=== PATIENT | male | born 1960 | race Caucasian/White ===

== ENCOUNTER 2023-02-07 18:28 | Emergency (ER) | payer MEDICARE, SELFPAY ==
[2023-02-07 18:39] VITALS: BP 182/101; PULSE 98; RESP 18; TEMP 36.8; O2SAT 98; BMI 25.4
[2023-02-07 18:43] VITALS: BP 158/97; PULSE 78; RESP 18; TEMP 36.7; O2SAT 99
--- NOTE | 2023-02-07 18:46 | PC.NURSE ---
PT STATES SUPRAPUBIC CATHETER STOPPED DRAINING TODAY. PT STATES HE HAS HAD THE CATHETER FOR 3 YEARS AND HAS THIS ISSUE FROM TIME TO TIME. PT STATES CATHETER GETS CHANGED EVERY 4 WEEKS AND HIS CURRENT CATHETER HAS BEEN IN FOR 3 WEEKS.
--- NOTE | 2023-02-07 19:26 | ED.MALEGU1 ---
HPI - Male Genitourinary General Chief complaint: Recheck/Abnormal Lab/Rx Stated complaint: CATH COMPLICATION-NO OUTPUT Time Seen by Provider: 02/07/23 19:24 Source: patient Mode of arrival: walk-in Limitations: no limitations History of Present Illness HPI Narrative: patient has suprapubic catheter in place. States it was not functioning. He presented to have the catheter replaced. States he has had this done several times in the past. no fever, nausea or pain. States urine was now flowing out of the catheter as normal Related Data Allergies Allergy/AdvReac Type Severity Reaction Status Date / Time No Known Drug Allergies Allergy Verified 02/07/23 18:39 Review of Systems ROS Status of ROS 10 or more systems reviewed and unremarkable except as noted in history and below Exam Constitutional Vital Signs, click to edit/add: Last Vital Signs Temp 98.1 F 02/07/23 18:43 Pulse 78 02/07/23 18:43 Resp 18 02/07/23 18:43 BP 158/97 H 02/07/23 18:43 Pulse Ox 99 02/07/23 18:43 O2 Del Method Room Air 02/07/23 18:39 Common normals: no apparent distress, average body habitus, oriented x3, no limitations and healthy appearing HENNY Common normals: normocephalic and head/scalp atraumatic Eye Common normals: PERRL, EOMs intact bilaterally and conjunctivae normal Respiratory Common normals: normal respiratory effort, no retractions, no use of accessory muscles and clear to auscultation bilaterally Cardio Common normals: no JVD, regular rate, regular rhythm, S1 normal heart sound and S2 normal heart sound GI Other: suprapubic catheter site is cleaned. abdomen is nontender Extremity Common normals: normal to inspection and full ROM Neuro Common normals: oriented x3, CN's II-XII intact bilaterally, moves all extremities, no focal motor deficits and no sensory deficits noted Psych Appearance: grossly normal Course Vital Signs Vital signs: Vital Signs Temperature 98.2 F 02/07/23 18:39 Pulse Rate 98 H 02/07/23 18:39 Respiratory Rate 18 02/07/23 18:39 Blood Pressure 182/101 H 02/07/23 18:39 Pulse Oximetry 98 02/07/23 18:39 Oxygen Delivery Method Room Air 02/07/23 18:39 Temperature 98.1 F 02/07/23 18:43 Pulse Rate 78 02/07/23 18:43 Respiratory Rate 18 02/07/23 18:43 Blood Pressure 158/97 H 02/07/23 18:43 Pulse Oximetry 99 02/07/23 18:43 Oxygen Delivery Method Room Air 02/07/23 18:39 MDM - Male Genitourinary MDM Narrative Medical decision making narrative: presents requesting to have his catheter changed. Asymptomatic. Exam normal. Catheter changed by nursing without incident and patient discharged home Discharge Plan Discharge Chief Complaint: Recheck/Abnormal Lab/Rx Clinical Impression: Acute urinary retention Patient Disposition: Home, Self-Care Instructions: How to Care for Your Suprapubic Catheter (DC) Stand Alone Forms: Portal Instructions Referrals: Physician,Non-Staff, MD [Primary Care Provider] - 1 week
--- NOTE | 2023-02-07 19:40 | PC.NURSE ---
URINARY CATHERTER PLACED, STERILE. PATIENT DENIES ANY PAIN OR DISCOMFORT. 350ML CLEAR YELLOW URINE FLOWING FREELY INTO LEG BAG AND DISCHARGED. TIP OF PREVIOUS URINARY CATHETER OBSTRUCTED, CAME OUT INTACT AND DISCARDED. PATIENT DENIES NEEDS AT THIS TIME. PHYSICIAN AWARE.
== END 2023-02-07 19:43 | disposition home or self-care (01) ==
PROVIDERS: Emergency Provider Internal Medicine; Family Provider Family Medicine
DX: R33.9 Retention of urine, unspecified (principal); Z96.0 Presence of urogenital implants
CPT/HCPCS: 99284

== ENCOUNTER 2023-10-15 12:50 | Emergency (ER) | payer MEDICARE, SELFPAY ==
[2023-10-15 12:55] VITALS: BP 139/90; PULSE 86; TEMP 36.6; O2SAT 97; BMI 23.6
--- NOTE | 2023-10-15 13:16 | ED.EAR1 ---
HPI - Ear Problem General Chief complaint: Ear Stated complaint: RT EAR PAIN W LITTLE DISCHARGE Time Seen by Provider: 10/15/23 13:16 Source: patient Mode of arrival: walk-in Limitations: no limitations History of Present Illness HPI Narrative: Patient is here with decreased hearing in his right ear and some discomfort. No history of trauma injury or bleeding. He thinks it might have wax in it. He has no other complaints today Related Data Home Medications ?Medication ?Instructions ?Recorded ?Confirmed baclofen 10 mg tablet 10 mg PO BEDTIME 10/15/23 10/15/23 omeprazole 40 mg capsule,delayed 40 mg PO BID 10/15/23 10/15/23 release oxybutynin chloride 5 mg tablet 5 mg PO Q8H 10/15/23 10/15/23 potassium citrate 15 mEq (1,620 15 meq PO BID 10/15/23 10/15/23 mg) tablet,extended release Allergies Allergy/AdvReac Type Severity Reaction Status Date / Time No Known Drug Allergies Allergy Verified 02/07/23 18:39 Exam Narrative Exam Narrative: Awake alert pleasant vital signs are stable. HEENT examination shows no evidence of oral pathology or disease. However both TMs could not be visualized because of dense wet cerumen in both ears. At this stage we did apply some peroxide and let him rest for a while. And then repeated episodes with water irrigation failed to expel the cerumen. There was no bleeding. He tolerated it well but has a said despite numerous attempts we could not get any wax out. He will need to be referred to ENT. Constitutional Vital Signs, click to edit/add: Last Vital Signs Temp 97.9 F 10/15/23 12:55 Pulse 86 10/15/23 12:55 Resp 16 10/15/23 12:55 BP 139/90 10/15/23 12:55 Pulse Ox 97 10/15/23 12:55 O2 Del Method Room Air 10/15/23 12:55 Course Vital Signs Vital signs: Vital Signs Temperature 97.9 F 10/15/23 12:55 Pulse Rate 86 10/15/23 12:55 Respiratory Rate 16 10/15/23 12:55 Blood Pressure 139/90 10/15/23 12:55 Pulse Oximetry 97 10/15/23 12:55 Oxygen Delivery Method Room Air 10/15/23 12:55 Temperature 97.9 F 10/15/23 12:55 Pulse Rate 86 10/15/23 12:55 Respiratory Rate 16 10/15/23 12:55 Blood Pressure 139/90 10/15/23 12:55 Pulse Oximetry 97 10/15/23 12:55 Oxygen Delivery Method Room Air 10/15/23 12:55 Discharge Plan Discharge Stand Alone Forms: Portal Instructions Chief Complaint: Ear Clinical Impression: Bilateral impacted cerumen Patient Disposition: Home, Self-Care Time of Disposition Decision: 14:59 Prescriptions / Home Meds: No Action omeprazole 40 mg capsule,delayed release(DR/EC) 40 mg PO BID baclofen 10 mg tablet 10 mg PO BEDTIME oxybutynin chloride 5 mg tablet 5 mg PO Q8H potassium citrate 15 mEq tablet extended release 15 meq PO BID Print Language: Kinyarwanda Additional Instructions: Check your insurance plan and call ENT specialist on Tuesday. Tell them you were in the ER and they should be able to see you this week Referrals: Physician,Non-Staff, MD [Primary Care Provider] - 1 week
== END 2023-10-15 15:11 | disposition home or self-care (01) ==
PROVIDERS: Emergency Provider Emergency Medicine Emergency Medical Services; Family Provider Family Medicine
DX: H61.23 Impacted cerumen, bilateral (principal); Z79.899 Other long term (current) drug therapy
CPT/HCPCS: 69209; 99281

== ENCOUNTER 2023-10-16 22:54 | Emergency (ER) | payer MEDICARE, SELFPAY ==
[2023-10-16 22:58] VITALS: BP 169/100; PULSE 93; TEMP 36.7; O2SAT 99; BMI 23.6
--- OUTSIDE RECORDS SUMMARY | 2023-10-16 23:00 | XMS_ITS | CCD ---
Author Organization [facility] Care Team Providers Care Physician Liaison Name Role Phone ARMANDO CORONADO Unavailable Unavailable GAFFNEY, MARLI F Unavailable Unavailable ARMANDO CORONADO Unavailable Unavailable GAFFNEY, MARLI F Unavailable Unavailable Gaffney, Marli F Primary Care Physician Aleta Maciel Unavailable Unavailable Chikis Richardson Unavailable Unavailable HAY ., DR ONTIVEROS Attending Unavailable HAY ., DR ONTIVEROS Consulting Unavailable HAY ., DR ONTIVEROS Admitting Unavailable GAFFNEY, DR BOB Consulting Unavailable MISC, DR CASTORENA Attending Unavailable MISC, DR CASTORENA Consulting Unavailable MISC, DR CASTORENA Admitting Unavailable GAFFNEY, DR BOB Consulting Unavailable Unavailable Primary Care Provider Unavailervin Orozco Kasey X Admitting Unavailable Juanzech Kasey X Attending Unavailable Bruce NUGENT Attending Unavailable Bruce NUGENT Attending Unavailable Yoel Cabrera Attending Unavailable Bruce NUGENT Attending Unavailable MORIAH KEARNEY Attending Unavailab MORIAH Onofre Attending Unavailab le Bruce NUGENT Attending Unavailable Bruce NUGENT Attending Unavailable Luis MARTINEZ Attending Unavailable MORIAH KEARNEY Attending Unavailab cuca Orzenon Kasey X Attending Unavailable CAIOMORIAH BHATT Attending Unavailab le CAIOMORIAH BHATT Attending Unavailab le CAIOMORIAH BHATT E Attending Unavailab cuca Martinezzepattie Kasey X Attending Unavailable Allergies Allergy Classification Reported Allergen(s) Allergy Type Date of Onset Reaction(s) Facility (20 sources) traZODone; Translations: [trazodone] Drug Allergy Sleep terror disorder (disorder) [facility] Medications Current Medications Medication Drug Class(es) Dates Sig (Normalized) Sig (Original) acetaminophen 325 mg oral tablet (20 sources) Start: 11-29-2019 take 2 tablets by mouth every six hours as needed for pain acetaminophen 325 mg Tab 650 mg = 2 tab(s), Oral, q6hr, PRN Pain, Refills(s) 0 Start Date: 11/29/19 Status: Ordered acetohydroxamic acid 250 mg oral tablet (1 source) Urease Inhibitor Start: 11-01-2022 take 1 tablet by mouth three times daily acetohydroxamic acid 250 mg oral tablet 250 mg = 1 tab(s), Oral, TID, # 90 tab(s), Refills(s) 11, Pharmacy: [facility], 175, cm, 10/13/22 10:32:00 EDT, Height/Length Dosing, 70, kg, 10/13/22 10:32:00 EDT, Weight Dosing Start Date: 11/01/22 Status: Ordered ascorbic acid 250 mg oral tablet (3 sources) Vitamin C Start: 05-21-2020 take 1 tablet by mouth twice daily Vitamin C 250 mg oral tablet 250 mg = 1 tab(s), Oral, BID, Prophylaxis Start Date: 05/21/20 Status: Ordered Baclofen (20 sources) gamma-Aminobuty lm Acid-ergic Agonist Start: 03-29-2023 baclofen 10 mg tablet baclofen 10 mg tablet Start Date: 03/29/23 Status: Ordered Start: 04-21-2020 take 1 tablet by jacobo th twice daily baclofen 10 mg Tab 10 mg = 1 tab(s), Oral, BID, Muscle pain Start Date: 04/21/20 Status: Ordered butalbital (20 sources) Barbiturate Start: 12-30-2020 butalbital Refills(s) 0 Start Date: 12/30/20 Status: Ordered cephalexin 500 mg oral capsule (2 sources) Cephalosporin Antibacterial Start: 01-02-2021 take 1 capsule by mouth every twelve hours Keflex 500 mg Cap 500 mg = 1 cap(s), Oral, q12hr, # 10 cap(s), Refills(s) 0, Pharmacy: [facility], 175, cm, 12/30/20 15:19:00 EDT, Height/Length Dosing, 75, kg, 01/01/21 20:55:00 EDT, Weight Dosing Start Date: 01/02/21 Status: Ordered doxepin hydrochloride 100 mg oral capsule (20 sources) Tricyclic Antidepressant Start: 07-24-2020 take 1 capsule by mouth once daily at bedtime doxepin 100 mg Cap 100 mg = 1 cap(s), Oral, Once a day (at bedtime), Refills(s) 0 Start Date: 07/24/20 Status: Ordered Fish Oils (20 sources) Start: 05-21-2020 take 500 mg by mouth once daily [place]-3 Fish Oil 500 mg, Oral, Daily, Prophylaxis Start Date: 05/21/20 Status: Ordered Multi Vitamins oral tablet (20 sources) Start: 05-21-2020 take 1 tablet by mouth once daily Multi Vitamins oral tablet 1 tab(s), Oral, Daily, Refill(s) 0, Prophylaxis Start Date: 05/21/20 Status: Ordered Nature's Bounty Probiotic (20 sources) Start: 05-21-2020 take 1 tablet by mouth once daily Nature's Bounty Probiotic 1 tab(s), Oral, Daily, Prophylaxis Start Date: 05/21/20 Status: Ordered omeprazole 40 mg delayed release oral capsule (20 sources) Proton Pump Inhibitor Start: 08-11-2023 take 1 capsule by mouth twice daily omeprazole 40 mg Cap-DR 40 mg = 1 cap(s), Oral, BID, # 180 cap(s), Refills(s) 3, Pharmacy: [facility], 176, cm, 08/08/23 14:58:00 EDT, Height/Length Dosing, 73.5, kg, 08/08/23 14:58:00 EDT, Weight Dosing Start Date: 08/11/23 Status: Ordered Start: 02-03-2023 End: 08-02-2023 take 1 capsule by mouth once daily omeprazole 40 mg Cap-DR 40 mg = 1 cap(s), Oral, Daily, X 90 day(s), # 90 cap(s), Refills(s) 1, Pharmacy: [facility], 175, cm, 12/13/22 11:33:00 EDT, Height/Length Dosing, 70, kg, 12/13/22 11:33:00 EDT, Weight Dosing Start Date: 02/03/23 Stop Date: 08/02/23 Status: Ordered Start: 05-07-2019 End: 01-11-2023 take 1 capsule by mouth once daily omeprazole 40 mg Cap-DR 40 mg, Oral, Daily, # 30 cap(s), Refills(s) 1, Pharmacy: [facility] Start Date: 05/07/19 Status: Ordered omeprazole 40 mg Cap-DR (3 sources) Start: 05-07-2019 take 1 capsule by mouth once daily omeprazole 40 mg Cap-DR 40 mg, Oral, Daily, # 30 cap(s), Refills(s) 1, Pharmacy: [facility] Start Date: 05/07/19 Status: Ordered oxybutynin chloride 5 mg oral tablet (20 sources) Cholinergic Muscarinic Antagonist Start: 02-01-2023 take 1 tablet by mouth three times daily as needed for muscle spasms oxybutynin 5 mg Tab 5 mg = 1 tab(s), Oral, TID, PRN bladder spasms, # 90 tab(s), Refills(s) 11, Pharmacy: [facility], 175, cm, 12/13/22 11:33:00 EDT, Height/Length Dosing, 70, kg, 12/13/22 11:33:00 EDT, Weight Dosing Start Date: 02/01/23 Status: Ordered Start: 07-29-2022 take 1 tablet by jacobo th three times daily as needed for muscle spasms oxybutynin 5 mg Tab 5 mg = 1 tab(s), Oral, TID, PRN bladder spasms, # 90 tab(s), Refills(s) 3, Pharmacy: [facility], 175, cm, 07/14/22 8:58:00 EST, Height/Length Dosing, 70, kg, 07/14/22 8:58:00 EST, Weight Dosing Start Date: 07/29/22 Status: Ordered Start: 02-05-2022 take 1 tablet by jacobo th twice daily as needed oxybutynin 5 mg Tab 5 mg = 1 tab(s), Oral, BID, PRN for urinary discomfort, # 60 tab(s), Refills(s) 11, Pharmacy: [facility], 175, cm, 01/27/22 15:27:00 EDT, Height/Length Dosing, 70, kg, 01/27/22 15:27:00 EDT, Weight Dosing Start Date: 02/05/22 Status: Ordered Start: 01-28-2021 take 1 tablet by jacobo th twice daily as needed oxybutynin 5 mg Tab 5 mg = 1 tab(s), Oral, BID, PRN for urinary discomfort, # 60 tab(s), Refills(s) 11, Pharmacy: [facility], 175, cm, 12/30/20 15:19:00 EDT, Height/Length Dosing, 75, kg, 01/01/21 20:55:00 EDT, Weight Dosing Start Date: 01/28/21 Status: Ordered monobasic potassium phosphate 0.0408 meq/ml oral solution (7 sources) Start: 09-02-2021 take 1 tablet by mouth once daily K-Phos Original 500 mg oral tablet 1 tab, Oral, Daily, # 30 tab(s), Refills(s) 11, Pharmacy: [facility], 175, cm, 09/02/21 9:22:00 EDT, Height/Length Dosing, 75, kg, 09/02/21 9:22:00 EDT, Weight Dosing Start Date: 09/02/21 Status: Ordered sulfamethoxazole 800 mg / trimethoprim 160 mg oral tablet (2 sources) Dihydrofolate Reductase Inhibitor Antibacterial, Sulfonamide Antimicrobial Start: 09-20-2023 End: 10-11-2023 Bactrim D.S. 800 mg-160 mg Tab 1 tab(s), Oral, BID for 3 week(s), 42 tab(s), Refill(s) 0, [facility], 175, cm, 09/20/23 9:13:00 EDT, Height/Length Dosing, 73, kg, 09/20/23 9:13:00 EDT, Weight Dosing Start Date: 09/20/23 Stop Date: 10/11/23 Status: Ordered traMADol hydrochloride 50 mg oral tablet (20 sources) Opioid Agonist Start: 05-21-2020 take 1 tablet by mouth every four hours as needed for pain tramadol 50 mg oral tablet 50 mg = 1 tab(s), Oral, q4hr, PRN for pain Start Date: 05/21/20 Status: Ordered Vitamin B6 100 mg Tab (20 sources) Start: 05-21-2020 take 1 tablet by mouth once daily Vitamin B6 100 mg Tab 100 mg = 1 tab(s), Oral, Daily, Prophylaxis Start Date: 05/21/20 Status: Ordered Vitamin C 250 mg oral tablet (20 sources) Start: 05-21-2020 take 1 tablet by mouth twice daily Vitamin C 250 mg oral tablet 250 mg = 1 tab(s), Oral, BID, Prophylaxis Start Date: 05/21/20 Status: Ordered Vitamin D (8 sources) Start: 03-29-2023 Vitamin D International_Unit , Oral, qWeek, Refills(s) 0 Start Date: 03/29/23 Status: Ordered Vitamin E (8 sources) Start: 03-29-2023 vitamin E Oral, Refills(s) 0 Start Date: 03/29/23 Status: Ordered vitamin k1 5 mg oral tablet (8 sources) Warfarin Reversal Agent, Vitamin K Start: 03-29-2023 take 1 tablet by mouth once daily Vitamin K 5 mg Tab 5 mg, Oral, Daily, # 30 tab(s), Refills(s) 0 Start Date: 03/29/23 Status: Ordered Completed/Discontinued Medications Medication Drug Class(es) Dates Sig (Normalized) Sig (Original) potassium citrate 15 meq extended release oral tablet (20 sources) Start: 09-15-2023 take 2 tablets by mouth twice daily potassium citrate 15 mEq oral tablet, extended release 30 mEq = 2 tab(s), Oral, BID, # 120 tab(s), Refills(s) 3, Pharmacy: [facility], 176, cm, 08/08/23 14:58:00 EDT, Height/Length Dosing, 73.5, kg, 08/08/23 14:58:00 EDT, Weight Dosing Start Date: 09/15/23 Status: Ordered Start: 09-13-2022 End: 09-08-2023 take 2 tablets by mouth twice daily potassium citrate 15 mEq oral tablet, extended release 30 mEq = 2 tab(s), Oral, BID, X 90 day(s), # 360 tab(s), Refills(s) 3, Pharmacy: [facility], 175, cm, 09/08/22 9:43:00 EDT, Height/Length Dosing, 70, kg, 09/08/22 9:43:00 EDT, Weight Dosing Start Date: 09/13/22 Stop Date: 09/08/23 Status: Ordered Start: 05-25-2022 take 2 tablets by mo uth twice daily potassium citrate 15 mEq oral tablet, extended release 30 mEq = 2 tab(s), Oral, BID, # 120 tab(s), Refills(s) 2, Pharmacy: [facility], 175, cm, 05/20/22 8:59:00 EST, Height/Length Dosing, 70, kg, 05/20/22 8:59:00 EST, Weight Dosing Start Date: 05/25/22 Status: Ordered Start: 01-27-2022 [facility] 2 [facility] potassium citrate 15 mEq oral tablet, extended release 30 mEq = 2 tab(s), Oral, BID, # 120 tab(s), Refills(s) 2, Pharmacy: [facility], 175, cm, 01/27/22 15:27:00 EDT, Height/Length Dosing, 70, kg, 01/27/22 15:27:00 EDT, Weight Dosing Start Date: 01/27/22 Status: Ordered Problems Active Problems Problem Classification Problem Date Documented Da te Episodic/Chronic Abdominal pain (20 sources) Abdominal pain 07-02-2020 Episodic Anal and rectal conditions (2 sources) Anorectal disorder; Translations: [Other specified diseases of anus and rectum] Onset: 08-08-2023 Episodic Calculus of urinary tract (20 sources) History of calculus of kidney; Translations: [Kidney stone] Onset: 06-16-2022 03-20-2021 Episodic Complication of device; implant or graft (20 sources) Retained ureteric stent; Translations: [Complication of urinary catheter] Onset: 10-25-2022 05-07-2020 Episodic Esophageal disorders (20 sources) Denny's esophagus; Translations: [Denny's esophagus without dysplasia] Onset: 04-20-2022 04-03-2019 Chronic Genitourinary symptoms and ill-defined conditions (10 sources) Urinary catheter in situ 12-13-2022 Chronic Genitourinary symptoms and ill-defined conditions (20 sources) Retention of urine; Translations: [Retention of urine, unspecified] Onset: 09-02-2021 Episodic Glaucoma (20 sources) Glaucoma 05-21-2020 Chronic Hemorrhoids (1 source) Hemorrhoids; Translations: [Other hemorrhoids] Onset: 08-08-2023 Episodic Hyperplasia of prostate (20 sources) Benign prostatic hypertrophy with outflow obstruction; Translations: [Benign prostatic hyperplasia with lower urinary tract symptoms] Onset: 10-28-2021 05-21-2020 Chronic Inflammatory conditions of male genital organs (1 source) Prostatitis; Translations: [Inflammatory disease of prostate, unspecified] Onset: 09-20-2023 Episodic Nausea and vomiting (20 sources) Vomiting 05-21-2020 Episodic Noninfectious gastroenteritis (20 sources) Colitis 11-29-2019 Episodic Other connective tissue disease (1 source) Disorder of muscle; Translations: [Other specified disorders of muscle] Onset: 08-08-2023 Episodic Other diseases of bladder and urethra (17 sources) Neurogenic dysfunction of the urinary bladder; Translations: [Neuromuscular dysfunction of bladder, unspecified] Onset: 09-02-2021 Chronic Other diseases of bladder and urethra (20 sources) Paralysis of bladder 08-06-2020 Chronic Other diseases of bladder and urethra (20 sources) Neurogenic bladder 02-25-2022 Chronic Other diseases of bladder and urethra (16 sources) Spasm of bladder 08-11-2022 Chronic Other diseases of bladder and urethra (2 sources) Disorder of bladder; Translations: [Other specified disorders of bladder] Onset: 09-08-2022 Chronic Other diseases of bladder and urethra (1 source) Neuromuscular dysfunction of bladder, unspecified; Translations: [NEUROMUSCULR DYSFNCTION BLADDER UNS] Onset: 10-26-2022 Chronic Other diseases of kidney and ureters (2 sources) Urinary tract obstruction; Translations: [Other obstructive and reflux uropathy] Onset: 10-28-2021 Episodic Other gastrointestinal disorders (1 source) Altered bowel function; Translations: [Change in bowel habit] Onset: 08-08-2023 Episodic Other male genital disorders (20 sources) 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 Other male genital disorders (20 sources) Disorder of male genital organ 05-21-2020 Episodic Other male genital disorders (20 sources) Swelling of testicle 05-21-2020 Episodic Other screening for suspected conditions (not mental disorders or infectious disease) (1 source) Screening for malignant neoplasm of colon done; Translations: [Encounter for screening for malignant neoplasm of colon] Onset: 04-20-2022 Episodic Residual codes; unclassified (20 sources) Chronic back pain 03-23-2014 Episodic Residual codes; unclassified (3 sources) Device in situ; Translations: [Presence of other specified devices] Onset: 12-13-2022 Episodic Unclassified (2 sources) Sprain of unspecified site of right knee, initial encounter / S83.91XA(ICD-9) Onset: 03-18-2017 Unclassified (1 source) Unilateral primary osteoarthritis, right knee / M17.11(ICD-9) Onset: 03-18-2017 Unclassified (20 sources) Patient encounter status 04-20-2022 Urinary tract infections (20 sources) Urethritis; Translations: [Urinary tract infectious disease] Onset: 09-20-2023 07-08-2021 Episodic Past or Other Problems Problem Classification Problem Date Documented Da te Episodic/Chronic Unclassified (1 source) Sprain of unspecified site of right knee, initial encounter; Translations: [Sprain of unspecified site of right knee, initial encounter] Onset: 03-18-2017 Results Test Name Value Interpretation Reference Range Facility C Urineon 09-23-2023 Bacteria identified Cx Nom (U) Microbiology PROCEDURE: Urine Culture [R1] SOURCE: U Cath BODY SITE: COLLECTED DATE/TIME: 09/20/2023 09:49 EDT RECEIVED DATE/TIME: 09/20/2023 18:06 EDT START DATE/TIME: 09/20/2023 18:06 EDT FREE TEXT SOURCE: cath Orzech BUILDING ARCHITECTURAL DESIGNER, HATCHERY HELPER-C, Orzech BUILDING ARCHITECTURAL DESIGNER, HATCHERY HELPER-C, Kasey X Kasey X FINAL REPORTS Final Report [] Verified Date/Time: 09/23/2023 09:10 EDT >100,000 cfu/ml Escherichia coli >100,000 cfu/ml Klebsiella oxytoca 50,000 cfu/ml Proteus mirabilis SUSCEPTIBILITY RESULTS LEGEND: S=Susceptible, N/R=Not Reported, Blank=Data not available, or drug not advisable or tested, I=Intermediate, ESBL=Extended spectrum beta-lactamase, R=Resistant, TFG=Thymidine-depen dent strain, JEROD=Beta-lactamase positive, LENORA=mcg/m;(mg/L), S*=Predicted susceptible interp, R*=Predicted resistant interp EC Kleoxy Promir Antibiotic LENORA Dilutn LENORA Interp LENORA Dilutn LENORA Interp LENORA Dilutn LENORA Interp Amikacin <=16 S <=16 S <=16 S Ampicillin >16 R 16 R* <=8 S Ampicillin/ <=8/4 S <=8/4 S <=8/4 S Sulbactam Aztreonam <=4 S <=4 S <=4 S Cefazolin <=2 S 8 S <=2 S Cefepime <=2 S <=2 S <=2 S Cefoxitin <=8 S <=8 S <=8 S Ceftazidime <=1 S <=1 S <=1 S Ceftazidime/ <=8 S <=8 S <=8 S Avibactam Ceftriaxone <=1 S <=1 S <=1 S Ciprofloxacin >2 R <=1 S <=1 S Ertapenem <=0.5 S <=0.5 S <=0.5 S Gentamicin <=4 S <=4 S <=4 S Levofloxacin >4 R <=2 S <=2 S Meropenem <=1 S <=1 S <=1 S Nitrofurantoin <=32 S <=32 S >64 R Piperacillin/ <=16 S <=16 S <=16 S Tazobactam Tetracycline >8 R <=4 S >8 R Tigecycline <=2 S <=2 S Tobramycin <=4 S <=4 S <=4 S Trimethoprim/ >2/38 R <=2/38 S <=2/38 S Sulfa Performing Locations R1: This test was performed at: [facility], [address] [place] [address], [id number] , [place], Normal [facility] Comment on above: Performed By: #### [id number] ####[facility] [id number] [place] [address] Patient Educationon 09-20-19 Patient Education Infectious Disease Prostatitis Prostatitis is swelling or inflammation of the prostate gland, also called the prostate. This gland is about 1.5 inches wide and 1 inch high, and it is involved in making semen. The prostate is located below a man's bladder, in front of the rectum. There are four types of prostatitis: ? Chronic prostatitis (CP), also called chronic pelvic pain syndrome (CPPS). This is the most common type of prostatitis. It is associated with increased muscle tone in the area between the hip bones (pelvic area), around the prostate. This type is also known as a pelvic floor disorder. ? Chronic bacterial prostatitis. This type usually results from an acute bacterial infection in the prostate gland that keeps coming back or has not been treated properly. The symptoms are less severe than those caused by acute bacterial prostatitis, which lasts a shorter time. ? Asymptomatic inflammatory prostatitis. This type does not have symptoms and does not need treatment. This is diagnosed when tests are done for other disorders of the urinary tract or reproductive tract. ? Acute bacterial prostatitis. This type starts quickly and results from an acute bacterial infection in the prostate gland. It is usually associated with a bladder infection, high fever, and chills. This is the least common type of prostatitis. What are the causes? Bacterial prostatitis is caused by an infection from bacteria. Chronic nonbacterial prostatitis may be caused by: ? Factors related to the nervous system. This system includes thebrain, spinal cord, and nerves. ? An autoimmune response. This happens when the body's disease-fighting system attacks healthy tissue in the body by mistake. ? Psychological factors. These have to do with how the mind works. The causes of the other types of prostatitis are usually not known. What are the signs or symptoms? Symptoms of this condition depend on the type of prostatitis you have. Acute bacterial prostatitis Symptoms may include: ? Pain or burning during urination. ? Frequent and sudden urges to urinate. ? Trouble starting to urinate. ? Fever. ? Chills. ? Pain in your muscles or joints, lower back, or lower abdomen. Other types of prostatitis Symptoms may include: ? Sudden urges to urinate, or urinating often. ? Trouble starting to urinate. ? Weak urine stream. ? Dribbling after urination. ? Discharge coming from the penis. ? Pain in the testicles, the penis, or the tip of the penis. ? Pain in the area in front of the rectum and below the scrotum (perineum). ? Pain when ejaculating. How is this diagnosed? This condition may be diagnosed based on: ? A physical and medical exam. ? A digital rectal exam. For this, the health care provider may use a finger to feel the prostate. ? A urine test to check for bacteria. ? A semen sample or blood tests. ? Ultrasound. ? Urodynamic tests to check how your body handles urine. ? Cystoscopy to look inside your bladder or inside the part of your body that drains urine from the bladder (urethra). How is this treated? Treatment for this condition depends on the type of prostatitis. Treatment may involve: ? Medicines to relieve pain or inflammation, or to help relax your muscles. ? Physical therapy. ? Heat therapy. ? Biofeedback. These techniques help you control certain body functions. ? Relaxation exercises. ? Antibiotic medicine, if your condition is caused by bacteria. ? Sitz baths. These warm water baths help to relax your pelvic floor muscles, which helps to relieve pressure on the prostate. Follow these instructions at home: Medicines ? Take [id number] and prescription medicines only as told by your health care provider. ? If you were prescribed an antibiotic medicine, take it as told by your health care provider. Do not stop using the antibiotic even if you start to feel better. Managing pain and swelling ? Take sitz baths as directed by your health care provider. For a sitz bath, sit in warm water that is deep enough to cover your hips and buttocks. ? If directed, apply heat to the affected area as often as told by your health care provider. Use the heat source that your health care provider recommends, such as a moist heat pack or a heating pad. ? Place a towel between your skin and the heat source. ? Leave the heat on for 20?30 minutes. ? Remove the heat if your skin turns bright red. This is especially important if you are unable to feel pain, heat, or cold. You may have a greater risk of getting burned. General instructions ? Do exercises as told by your health care provider, if you were prescribed physical therapy, biofeedback, or relaxation exercises. ? Keep all follow-up visits as told by your health care provider. This is important. Where to find more information ? National [place] of Diabetes and Digestive and Kidney Diseases: (more content not included)... [facility] Urology Office/Clinic Noteon 09-20-2023 Urology Office/Clinic Note Chief Complaint OV HPI Staff [facility] pt Last seen in our office 03/29/23 by KENISHA DX: Chronic Indwelling Catheter & NGB * Oxybutynin 5mg tid and potassium citrate 15mEq 2-bid therapy. S/P Tube last changed in our office 05/17/23. Pt is here today for f/u to changing S/P tube at home. Has been having some pain in perineal area that radiates to testicles. Ongoing for 3wks. Stabbing pain. Exacerbated by increased activity & BM's. States he has been having white foam discharge out of penis. Denies difficulty with S/P tube changes. Has been changing [id number] (due to kind of tubing) History of Present Illness I have reviewed and verified the staff HPI to be accurate for this encounter. Portions of this record may have been created with voice recognition artificial intelligence software, specifically [employer], [employer] and or [employer]. Substitutions may have occurred due to the inherent limitations of voice recognition and artificial intelligence software. Review of Systems PHQ Score Initial Depression Screen Score: 0 SCORE Physical Exam Vitals & Measurements HR: 84(Peripheral) RR: 16 BP: 138/80 HT: 69 in HT: 175 cm WT: 73 kg WT: 160.6 lb BMI: 23.84 General: Well developed, well nourished, in no acute distress. Genitourinary: normal scrotum, normal testes with some mild pain to palpation of the posterior portion, also has discomfort on palpation of the area just posterior to the scrotum. Normal urethra, normal epididymis, normal vas deferens/spermatic cord. Flank Pain: none. Bladder: nonpalpable. Penis: normal shaft, normal glans. Assessment/Plan 1. Prostatitis (N41.9: Inflammatory disease of prostate, unspecified) Patient complains of perineal pain which radiates to his testicles x 3 weeks. He describes this as an intermittent stabbing pain which is exacerbated by increased activity and bowel movements. He denies constipation. He denies any known injury. He denies abdominal pain or significant drainage around the suprapubic opening. On exam, he does have mild discomfort on palpation of the posterior portion of the bilateral testicles. He has pain on palpation of the area posterior to the scrotum. Will treat for prostatitis with Bactrim x 3 weeks. Discussed side effects, patient to report any intolerable to office. Complete antibiotic course. Rx sent to pharmacy. -Follow-up in 5 to 6 weeks for recheck on symptoms. 2. Chronic indwelling Crum catheter (Z97.8: Presence of other specified devices) Patient has chronic indwelling SP tube due to neurogenic bladder. He changes every 10 to 14 days at home due to the type of catheter he has. He is irrigating daily. He last change SP tube at home 2 days ago. Denies any recent urinary infections. He has minimal drainage around the suprapubic tube. Denies any drainage from his urethra. -Continue SP tube changes at home. -Follow-up 6 months to ensure that he is not getting frequent infections and changes are going well. 3. Neurogenic bladder (N31.9: Neuromuscular dysfunction of bladder, unspecified) See #1. Patient is taking oxybutynin 5 mg 3 times daily for spasms as well as potassium citrate 15 mEq 2 tabs twice daily to prevent encrustation. He is tolerating these medications well without side effects. Continue current doses. 4. History of UTI (Z87.440: Personal history of urinary (tract) infections) Patient reports that he previously had frequency of urinary tract infections. Has not had UTI since last office visit. 5. Urinary tract infection (N39.0: Urinary tract infection, site not specified) Ordered: Urine Culture Orders: sulfamethoxazole-tr imethoprim, 1 tab(s), Oral, BID for 3 week(s), 42 tab(s), Refill(s) 0, [employer] #37, 175, cm, 09/20/23 9:13:00 EDT, Height/Length Dosing, 73, kg, 09/20/23 9:13:00 EDT, Weight Dosing Follow-up With When Contact Information SURYA Orozco APRN, Kasey Arenas, FAM, URL Additional Instructions: 5 to 6 weeks for recheck Patient Education Prostatitis Problem List/Past Medical History Ongoing Abdominal pain Denny's esophagus Bladder spasms BPH with urinary obstruction Chronic indwelling Crum catheter Colitis Dysuria Gross hematuria History of kidney stones History of UTI Hypotonic neurogenic bladder Kidney stone Microscopic hematuria Neurogenic bladder Peyronie's disease Problem with urinary catheter Retained ureteral stent Screen for colon cancer Urethritis Urinary retention Urinary tract infection Historical Denny esophagus BPH with obstruction/lower urinary tract symptoms Chronic back pain Glaucoma Hydrocele Swollen testicle Vomiting Procedure/Surgical History Cystoscopy (07/23/2020), Cystoscopic removal of ureteric stent (06/12/2020), Change of urethral catheter (05/22/2020), ESWL - Extracorporeal shockwave lithotripsy for renal calculus (05/22/2020), Cystoscopy (04/13/2020), Cystoscopy (06/26/ (more content not included)... Normal [facility] Comment on above: Result Comment: Elec tronically Signed By: SURYA Orozco APRN, [place] X\.br\Date and Time Signed: 09/20/23 10:05 EDT Jim 08-22-2023 [place] Telephone ([facility]) ---- FLORA CHANDRA ([id number]) 1960 M Date Time Provider Department 08/22/23 CHERYL SY [facility] During your visit today, we recorded the following information about you: Liudmila Gore 08/22/2023 10:30 AM Signed Left detailed VM offering scheduling assistance for Manometry with consultation with Provider Cheryl Sy CNP. Dr. Cabrera referring. Thank you. Liudmila Desai Allergies As of Date: 08/22/2023 (Not on File) Date Reviewed: Never Reviewed Problem List As Of Date: 08/22/2023 (None) Encounter Status:Closed by LIUDMILA GORE on 09/09/23 [facility] 08-19-2023 CNPN Telephone ([facility]) ---- FLORA CHANDRA ([id number]) 1960 M Date Time Provider Department 08/19/23 CHERYL SY [facility] During your visit today, we recorded the following information about you: Neli Encarnacion 08/19/2023 2:08 PM Signed Received referral from [facility] and it was scanned in to chart. This is a new pt and requires continue patient registration when they call back. There is a referral for manometry and I LVM to have them give us a call back to schedule. I tried calling [facility] to verify contact information of pt. Called on 08/10 and 08/18. Allergies As of Date: 08/19/2023 (Not on File) Date Reviewed: Never Reviewed Reason for Visit: Received Outside Medical Records [[id number]] Problem List As Of Date: 08/19/2023 (None) Encounter Status:Closed by NELI ENCARNACION on 08/19/23 [facility] Physician Referralon 024 Physician Referral [id number] 40#1.00TIFF [facility] Retail - Clinical Noteon Retail - Clinical Note [id number] C9#1.00TIFF [facility] Ambulatory Visit Summaryon 0 08-08-2023 Ambulatory Visit Summary FLORA CHANDRA :1960 Visit Date:08/08/2023 Ambulatory Visit Instructions Your Diagnosis Denny's esophagus Acid reflux Anal pain Altered bowel habits Pelvic floor dysfunction Neurogenic bladder Internal hemorrhoids Anal fissure Your Care Team Attending Physician - Rick ZHENG, Yoel Damico Primary Care Physician - Gulshan ZHENG, Marli Back This Is Your Medications List Contact prescribing physician if questions or concerns Misc Prescription (baclofen 10 mg tablet) acetaminophen (acetaminophen 325 mg Tab) ascorbic acid (Vitamin C 250 mg oral tablet) baclofen (baclofen 10 mg Tab) bifidobacterium-lac tobacillus (Nature's Bounty Probiotic) ergocalciferol (Vitamin D) multivitamin (Multi Vitamins oral tablet) omega-3 polyunsaturated fatty acids ([place]-3 Fish Oil) oxybutynin (oxybutynin 5 mg Tab) phytonadione (Vitamin K 5 mg Tab) potassium citrate (potassium citrate 15 mEq oral tablet, extended release) vitamin E Procedures Performed Cystoscopy (07/23/2020), Cystoscopic removal of ureteric stent (06/12/2020), Change of urethral catheter (05/22/2020), ESWL - Extracorporeal shockwave lithotripsy for renal calculus (05/22/2020), Cystoscopy (04/13/2020), Cystoscopy (06/26/2019), TURP - Transurethral resection of prostate (06/26/2019), Pilar cyst of scalp (03/25/2017), 2 inq. hernia repairs, cholecystectomy, Colonoscopy, EGD (esophagogastroduod enoscopy) gastric outlet reduction. Discharge Vitals Heart Rate (Peripheral) 71 Respiratory Rate 16 Blood Pressure 134/81 Height 176 cm Height 69 in Weight 73.5 kg Weight 161.7 lb BMI 23.73 What to do next Scheduled Follow-Up Appointments Tuesday 8:30 AM EDT With: CAIO MAJOR, ISABEL Rodriguez Where: [facility] [place] Invalid Interpretation Code Acid reflux [facility] Gastroenterology Office/Clin ic Noteon 08-08-2023 Gastroenterology Office/Clinic Note Chief Complaint rectal pain, acid reflux HPI Staff This is a 62 year old male who presents today for a sick call for complaints rectal pain, painful bowel movements. No blood. has been having some acid reflux. Last office visit w/ Nubia 04/20/22 Assessment/Plan 1. 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 Ordered surveillance EGD. Continue omeprazole 40mg daily. 2. Screen for colon cancer (Z12.11: Encounter for screening for malignant neoplasm of colon) Previous colonoscopy 01/2017 that revealed hemorrhoids and is due for repeat in 2026. EGD 05/07/22 w/ Dr Britton Impression and Plan 1. Long segment of Denny esophagus, C5M5, 4 biopsies obtained from each 2 cm(35, 33, and 31 ). 2. Normal gastric and duodenal mucosa, small hiatal hernia, 2 cm Final Diagnosis (Verified) A: DENNY'S ESOPHAGUS, 31 CM, BIOPSY: ? COLUMNAR CELL MUCOSA WITH INTESTINAL METAPLASIA. ? NEGATIVE FOR DYSPLASIA. B: DENNY'S ESOPHAGUS, 33 CM, BIOPSY: ? COLUMNAR CELL MUCOSA WITH INTESTINAL METAPLASIA. ? NEGATIVE FOR DYSPLASIA. C: DENNY'S ESOPHAGUS, 35 CM, BIOPSY: ? COLUMNAR CELL MUCOSA WITH INTESTINAL METAPLASIA. ? NEGATIVE FOR DYSPLASIA. Colon 02/11/17 w/ Dr Britton. Impression and Plan Impression: Small nonbleeding internal hemorrhoids, otherwise normal colonoscopy. History of Present Illness I have reviewed HPI staff note, most recent labs and imaging, more than 30 minutes spent reviewing the chart, during encounter, placing orders and counseling the patient. PT with hx of BE on PPI once a day some heartburn and requires more PPI some days Pain with defecation no blood seen Pt was on probiotics powder but not in the last month due to money issues used to go 2-3 times a day but now once a day a little gassy some incomplete evacuation suprapubic catheter for 3 years TURP procedure in 2020 hx of Large objects insertion in the rectum Review of Systems PHQ Score Initial Depression Screen Score: 0 SCORE All systems reviewed, negative except as mentioned above Physical Exam Vitals & Measurements HR: 71(Peripheral) RR: 16 BP: 134/81 HT: 69 in HT: 176 cm WT: 73.5 kg WT: 161.7 lb BMI: 23.73 General: alert, no acute distress HEENT: atraumatic normocephalic Cardiovascular: regular rate and rhythm, normal peripheral perfusion Respiratory: Lungs CTA, respirations non labored Extremities: no deformity, no trauma Abdomen: Benign, soft, nontender nondistended Rectum : TTP in the perineum area and decreased squeeze and resting pressure with small hemorrhoids and anal fissures at 6 o'clock Assessment/Plan 1. Denny's esophagus (K22.70: Denny's esophagus without dysplasia) Ordered: [facility] External Ambulatory Referral 2. Acid reflux (K21.9: Gastro-esophageal reflux disease without esophagitis) Ordered: [facility] External Ambulatory Referral 3. Anal pain (K62.89: Other specified diseases of anus and rectum) Ordered: [facility] External Ambulatory Referral 4. Altered bowel habits (R19.4: Change in bowel habit) Ordered: [facility] External Ambulatory Referral 5. Pelvic floor dysfunction (M62.89: Other specified disorders of muscle) 6. Neurogenic bladder (N31.9: Neuromuscular dysfunction of bladder, unspecified) 7. Internal hemorrhoids (K64.8: Other hemorrhoids) 8. Anal fissure (K60.2: Anal fissure, unspecified) Increase PPI to twice a day Referral for anorectal manometry Lidocaine/nifedipin e cream 2-3 times a day Advised to get squatty potty and massage the colon Advised to resume probiotics Advised to consume prunes and kiwi fruits If he continues to have a pain, will refer to colorectal surgery Follow-up No qualifying data available Problem List/Past Medical History Ongoing Abdominal pain Denny's esophagus Bladder spasms BPH with urinary obstruction Chronic indwelling Crum catheter Colitis Dysuria Gross hematuria History of kidney stones History of UTI Hypotonic neurogenic bladder Kidney stone Microscopic hematuria Neurogenic bladder Peyronie's disease Problem with urinary catheter Retained ureteral stent Screen for colon cancer Urethritis Urinary retention Urinary tract infection Historical Denny esophagus BPH with obstruction/lower urinary tract symptoms Chronic back pain Glaucoma Hydrocele Swollen testicle Vomiting Procedure/Surgical History Cystoscopy (07/23/2020), Cystoscopic removal of ureteric stent (06/12/2020), Change of urethral catheter (05/22/2020), ESWL - Extracorporeal shockwave lithotripsy for renal calculus (05/22/2020), Cystoscopy (04/13/2020), Cystoscopy (06/26/2019), TURP - Transurethral resection of prostate (06/26/2019), Pilar cyst of scalp (03/25/2017), 2 inq. h (more content not included)... Normal [facility] Comment on above: Result Comment: Elec tronically Signed By: Rick ZHENG, Yoel Damico\.br\Date and Time Signed: 08/08/23 15:43 EDT Retail - Clinical Noteon Retail - Clinical Note [id number] ED#1.00TIFF [facility] Ambulatory Visit Summaryon 1 07-18-2022 Ambulatory Visit Summary FLORA CHANDRA Keeley :1960 Visit Date:05/17/2023 Ambulatory Visit Instructions Your Care Team Attending Physician - ISABEL KEARNEY PA-C Primary Care Physician - Glushan ZHENG, Marli Back This Is Your Medications List [facility] [place] (baclofen 10 mg tablet) acetaminophen (acetaminophen 325 mg Tab) ascorbic acid (Vitamin C 250 mg oral tablet) baclofen (baclofen 10 mg Tab) bifidobacterium-lac tobacillus (Nature's Bounty Probiotic) ergocalciferol (Vitamin D) multivitamin (Multi Vitamins oral tablet) omega-3 polyunsaturated fatty acids ([place]-3 Fish Oil) omeprazole (omeprazole 40 mg Cap-DR) oxybutynin (oxybutynin 5 mg Tab) phytonadione (Vitamin K 5 mg Tab) potassium citrate (potassium citrate 15 mEq oral tablet, extended release) pyridoxine (Vitamin B6 100 mg Tab) vitamin E Procedures Performed Cystoscopy (07/23/2020), Cystoscopic removal of ureteric stent (06/12/2020), Change of urethral catheter (05/22/2020), ESWL - Extracorporeal shockwave lithotripsy for renal calculus (05/22/2020), Cystoscopy (04/13/2020), Cystoscopy (06/26/2019), TURP - Transurethral resection of prostate (06/26/2019), Pilar cyst of scalp (03/25/2017), 2 inq. hernia repairs, cholecystectomy, Colonoscopy, EGD (esophagogastroduod enoscopy) gastric outlet reduction. What to do next Scheduled Follow-Up Appointments Tuesday 8:30 AM EDT With: ISABEL KEARNEY PA-C Where: [facility] Ambulatory Visit Summaryon 1 Ambulatory Visit Summary FLORA CHANDRA :1960 Visit Date:03/29/2023 Ambulatory Visit Instructions Your Diagnosis Chronic indwelling Crum catheter Neurogenic bladder Your Care Team Attending Physician - ISABEL KEARNEY PA-C Primary Care Physician - Marli Gaffney MD This Is Your Medications List Contact prescribing physician if questions or concerns Misc Prescription (baclofen 10 mg tablet) acetaminophen (acetaminophen 325 mg Tab) ascorbic acid (Vitamin C 250 mg oral tablet) baclofen (baclofen 10 mg Tab) bifidobacterium-lac tobacillus (Nature's Bounty Probiotic) ergocalciferol (Vitamin D) multivitamin (Multi Vitamins oral tablet) omega-3 polyunsaturated fatty acids ([place]-3 Fish Oil) omeprazole (omeprazole 40 mg Cap-DR) oxybutynin (oxybutynin 5 mg Tab) phytonadione (Vitamin K 5 mg Tab) potassium citrate (potassium citrate 15 mEq oral tablet, extended release) pyridoxine (Vitamin B6 100 mg Tab) vitamin E Procedures Performed Cystoscopy (07/23/2020), Cystoscopic removal of ureteric stent (06/12/2020), Change of urethral catheter (05/22/2020), ESWL - Extracorporeal shockwave lithotripsy for renal calculus (05/22/2020), Cystoscopy (04/13/2020), Cystoscopy (06/26/2019), TURP - Transurethral resection of prostate (06/26/2019), Pilar cyst of scalp (03/25/2017), 2 inq. hernia repairs, cholecystectomy, Colonoscopy, EGD (esophagogastroduod enoscopy) gastric outlet reduction. Discharge Vitals Heart Rate (Peripheral) 80 Respiratory Rate 16 Blood Pressure 132/78 Height 175 cm Height 69 in Weight 73 kg Weight 160.6 lb BMI 23.84 What to do next Scheduled Follow-Up Appointments Tuesday 9:00 AM EST Where: [facility] Patient Educationon 03-29-20 Patient Education Urology Suprapubic Catheter Replacement Suprapubic catheter replacement is a procedure to remove an old catheter and insert a new, clean catheter. A suprapubic catheter is a rubber tube that drains urine from the bladder into a collection bag outside the body. The catheter is inserted into the bladder through a small opening in the lower abdomen, near the center of the body, above the pubic bone (suprapubicarea). There is a tiny balloon filled with germ-free (sterile) water on the end of the catheter that is in the bladder. The balloon helps to keep the catheter in place. If you need to wear a catheter for a long period of time, you may be instructed to replace the catheter yourself. Usually, suprapubic catheters need to be replaced every 4?6 weeks, or as often as told by your health care provider. What are the risks? Generally, this is a safe procedure. However, problems may occur, including failure to get the catheter into the bladder. What happens before the procedure? ? You may have an exam or testing, including a blood or urine sample. ? Ask your health care provider what steps will be taken to help prevent infection. What happens during the procedure? ? You will lie on your back. ? The water from the balloon will be removed using a syringe. ? The catheter will be slowly removed. ? Lubricant will be applied to the end of the new catheter that will go into your bladder. ? The new catheter will be inserted through the opening in your abdomen. Your health care provider will slide the catheter into your bladder. ? Your health care provider will wait for some urine to start flowing through the catheter. When this happens, a syringe will be used to fill the balloon with sterile water. ? A collection bag will be attached to the end of the catheter. The procedure may vary among health care providers and hospitals. What can I expect after procedure? After the procedure, it is common to have: ? Some discomfort around the opening in your abdomen. Follow these instructions at home: Caring for the skin around the catheter Use a clean washcloth and soapy water to clean the skin around your catheter every day. Pat the area dry with a clean towel. ? Do not pull on the catheter. ? Do not use ointment or lotion on this area unless told by your health care provider. ? Check the skin around the catheter every day for signs of infection. Check for: ? Redness, swelling, or pain. ? Fluid or blood. ? Warmth. ? Pus or a bad smell. Caring for the catheter ? Clean the catheter with soap and water as often as told by your health care provider. ? Always make sure there are no twists or curls (kinks) in the catheter. ? As soon as you are able to move, you may use a leg bag to collect the urine. ? Make sure that the tubing is straight and without kinks. ? Wrap an jeff bandage gently over the tubing and around your leg to minimize the risk of the bag getting pulled out. Emptying the collection bag Empty the large collection bag every 8 hours. Empty the small collection bag when it is about ? full. To empty your large or small collection bag, take the following steps: ? Always keep the bag below the level of the catheter. This keeps urine from flowing backward into the catheter. ? Hold the bag over the toilet or another container. Turn the valve (spigot) at the bottom of the bag to empty the urine. ? Do not touch the opening of the spigot. ? Do not let the opening touch the toilet or container. ? Close the spigot tightly when the bag is empty. Cleaning the collection bag ? Wash your hands with soap and water. If soap and water are not available, use hand motorcycle engine assembler. ? Disconnect the bag from the catheter and immediately attach a new bag to the catheter. ? Empty the used bag completely. ? Clean the used bag according to the integration engineer's instructions, or as told by your health care provider. ? Let the bag dry completely, and put it in a clean plastic bag before storing it. General instructions ? Always wash your hands before and after caring for your catheter and collection bag. Use soap and water. If soap and water are not available, use hand motorcycle engine assembler. ? Always make sure there are no leaks in the catheter or collection bag. ? Drink enough fluid to keep your urine pale yellow. ? If you were prescribed an antibiotic medicine, take it as told by your health care provider. Do not stop taking the antibiotic even if you start to feel better. ? Do not take baths, swim, or use a hot tub. ? Keep all follow-up visits as told by your health care provider. This is important. Contact a health care provider if: ? You leak urine. ? You have redness, swelling, or pain around your catheter opening. ? You have fluid or blood coming from your catheter opening. ? Your catheter opening feels warm to the touch. ? You have (more content not included)... Normal [facility] Urology Office/Clinic Noteon 03-29-2023 Urology Office/Clinic Note Chief Complaint Teach S/P Tube Change HPI Staff [facility] pt Here today to be taught how to change S/P tube independently. DX: NGB & Chronic Indwelling catheter. *Oxybutynin 5mg TID, Potassium Citrate 15meq 2-BID. Has been getting S/P tube changed q4wks. has had difficulties with stent calcification in the past. Pt states it hasn't happened in a while. Denies any current complications History of Present Illness staff HPI reviewed and agree. Review of Systems PHQ Score Initial Depression Screen Score: 0 no fever, chills, malaise, myalgia. no rash/lesions. no chest pain, palpitations, or SOB. no abdominal pain, nausea, vomiting. no unilateral calf swelling, redness, pain Physical Exam Vitals & Measurements HR: 80(Peripheral) RR: 16 BP: 132/78 HT: 69 in HT: 175 cm WT: 73 kg WT: 160.6 lb BMI: 23.84 General: nontoxic, NAD Mouth: moist mucosa Lungs: normal respiratory effort Cardio: regular rate, good distal perfusion Abdomen: nondistended, no suprapubic distention or tenderness, no CVA tenderness Neurologic: Grossly normal Skin: No rashes or suspicious lesions Procedure The patient denies seeing blood in the urine, fever, or chills. There have been no complications since the last tube change. The SP tube has been changed today in the office without difficulty, and the tube irrigated to ensure proper placement. 7ml in balloon. Assessment/Plan Dr. Nugent pt 1. Chronic indwelling Crum catheter (Z97.8: Presence of other specified devices) Last change 02/07/23 at [facility]. The SP tube has been changed today in the office without difficulty, and the tube irrigated to ensure proper placement. The patient was instructed on the proper technique on SP tube changes today. He demonstrated good understanding of the proper location and care management. We will continue to follow with him for at least the next 2 SP tube change to ensure appropriate technique is being done by the patient. Once patient and providers feel he is proficient and we agree, he can proceed with SP tube changes independently. 2. Neurogenic bladder (N31.9: Neuromuscular dysfunction of bladder, unspecified) See #1. Taking Oxybutynin 5mg tid and potassium citrate 15mEq 2-bid. Follow up for SP tube change in 3-4wks or sooner if needed. Pt understands and agrees with plan. Total time spent reviewing previous notes/results/exter nal documents, preparing the chart, conducting the encounter with the patient and family, ordering tests/medications, and documenting the encounter was 20 minutes. Follow-up With When Contact Information CAIO MAJOR, ISABEL Rodriguez, URL [address] [place] [address] [phone] Additional Instructions: 3-4wk for SP tube change Patient Education Suprapubic Catheter Replacement Documentation recorded by the robbie Abbott accurately reflects the services(s) I performed and decisions made by me. Authenticated by Isabel Kearney PA-C on 03/29/2023 09:40:05. IJosette, personally scribed for Isabel Kearney PA-C on 03/29/2023 09:19:43. . Problem List/Past Medical History Ongoing Abdominal pain Denny's esophagus Bladder spasms BPH with urinary obstruction Chronic indwelling Crum catheter Colitis Dysuria Gross hematuria History of kidney stones History of UTI Hypotonic neurogenic bladder Kidney stone Microscopic hematuria Neurogenic bladder Peyronie's disease Problem with urinary catheter Retained ureteral stent Screen for colon cancer Urethritis Urinary retention Urinary tract infection Historical Denny esophagus BPH with obstruction/lower urinary tract symptoms Chronic back pain Glaucoma Hydrocele Swollen testicle Vomiting Procedure/Surgical History Cystoscopy (07/23/2020), Cystoscopic removal of ureteric stent (06/12/2020), Change of urethral catheter (05/22/2020), ESWL - Extracorporeal shockwave lithotripsy for renal calculus (05/22/2020), Cystoscopy (04/13/2020), Cystoscopy (06/26/2019), TURP - Transurethral resection of prostate (06/26/2019), Pilar cyst of scalp (03/25/2017), 2 inq. hernia repairs, cholecystectomy, Colonoscopy, EGD (esophagogastroduod enoscopy) gastric outlet reduction. Medications acetaminophen 325 mg Tab, 650 mg= 2 tab(s), Oral, q6hr, PRN baclofen 10 mg Tab, 10 mg= 1 tab(s), Oral, BID baclofen 10 mg tablet, 0 Multi Vitamins oral tablet, 1 tab(s), Oral, Daily Nature's Bounty Probiotic, 1 tab(s), Oral, Daily [place]-3 Fish Oil, 500 mg, Oral, Daily omeprazole 40 mg Cap-DR, 40 mg= 1 cap(s), Oral, Daily, 1 refills oxybutynin 5 mg Tab, 5 mg= 1 tab(s), Oral, TID, 11 refills potassium citrate 15 mEq oral tablet, extended release, 30 mEq= 2 tab(s), Oral, BID, 3 refills Vitamin B6 100 mg Tab, 100 mg= 1 tab(s), Oral, Daily Vitamin C 250 mg oral tablet, 250 mg= 1 tab(s), Oral, BID Vitamin D, Oral, qWeek vitamin E, Oral Vitamin K 5 mg Tab, 5 mg, Oral, Daily All (more content not included)... [facility] Comment on above: Result Comment: Elec tronically Signed By: ISABEL KEARNEY PA-C\.br\Date and Time Signed: 03/29/23 09:40 EDT\.br\Electronically Co-Signed By: Josette Abbott\danni\Date and Time Co-Signed: 03/29/23 09:27 EDT Ambulatory Visit Summaryon 0 01-12-2023 Ambulatory Visit Summary FLORA CHANDRA :1960 Visit Date:01/12/2023 Ambulatory Visit Instructions Your Diagnosis Neurogenic bladder Chronic indwelling Crum catheter Your Care Team Attending Physician - ISABEL KEARNEY PA-C Primary Care Physician - Gulshan ZHENG, Marli Back This Is Your Medications List acetaminophen (acetaminophen 325 mg Tab) ascorbic acid (Vitamin C 250 mg oral tablet) baclofen (baclofen 10 mg Tab) bifidobacterium-lac tobacillus (Nature's Bounty Probiotic) butalbital doxepin (doxepin 100 mg Cap) multivitamin (Multi Vitamins oral tablet) omega-3 polyunsaturated fatty acids ([place]-3 Fish Oil) omeprazole (omeprazole 40 mg Cap-DR) oxybutynin (oxybutynin 5 mg Tab) potassium citrate (potassium citrate 15 mEq oral tablet, extended release) pyridoxine (Vitamin B6 100 mg Tab) tramadol (tramadol 50 mg oral tablet) Procedures Performed Cystoscopy (07/23/2020), Cystoscopic removal of ureteric stent (06/12/2020), Change of urethral catheter (05/22/2020), ESWL - Extracorporeal shockwave lithotripsy for renal calculus (05/22/2020), Cystoscopy (04/13/2020), Cystoscopy (06/26/2019), TURP - Transurethral resection of prostate (06/26/2019), Pilar cyst of scalp (03/25/2017), 2 inq. hernia repairs, cholecystectomy, Colonoscopy, EGD (esophagogastroduod enoscopy) gastric outlet reduction. Medications What How Much When Instructions Unchanged acetaminophen (acetaminophen 325 mg Tab) 2 Tablets By Mouth Every 6 hours as needed for Pain Unchanged ascorbic acid (Vitamin C 250 mg oral tablet) 1 Tablets By Mouth 2 times a day Unchanged baclofen (baclofen 10 mg Tab) 1 Tablets By Mouth 2 times a day Unchanged bifidobacterium-lac tobacillus (Nature's Bounty Probiotic) 1 Tablets By Mouth Every day Unchanged butalbital Unchanged doxepin (doxepin 100 mg Cap) 1 Capsules By Mouth Once a day (at bedtime) Unchanged multivitamin (Multi Vitamins oral tablet) 1 Tablets By Mouth Every day Unchanged omega-3 polyunsaturated fatty acids ([place]-3 Fish Oil) 500 Milligram By Mouth Every day Unchanged omeprazole (omeprazole 40 mg Cap-DR) 40 Milligram By Mouth Every day Unchanged oxybutynin (oxybutynin 5 mg Tab) 1 Tablets By Mouth 3 times a day PRN bladder spasms Unchanged potassium citrate (potassium citrate 15 mEq oral tablet, extended release) 2 Tablets By Mouth 2 times a day Duration: 90 Days Unchanged pyridoxine (Vitamin B6 100 mg Tab) 1 Tablets By Mouth Every day Unchanged tramadol (tramadol 50 mg oral tablet) 1 Tablets By Mouth Every 4 hours as needed for for pain Allergies traZODone (Night terrors) Problems Ongoing - Any problem that you are currently receiving treatment for. Abdominal pain Denny's esophagus Bladder spasms BPH with urinary obstruction Chronic indwelling Crum catheter Colitis Dysuria Gross hematuria History of kidney stones History of UTI Hypotonic neurogenic bladder Kidney stone Microscopic hematuria Neurogenic bladder Peyronie's disease Problem with urinary catheter Retained ureteral stent Screen for colon cancer Urethritis Urinary retention Urinary tract infection Historical - Any problem that you are no longer receiving treatment for. Denny esophagus BPH with obstruction/lower urinary tract symptoms Chronic back pain Glaucoma Hydrocele Swollen testicle Vomiting [facility] Ambulatory Visit Summaryon 0 12-13-2022 Ambulatory Visit Summary FLORA CHANDRA :1960 Visit Date:12/13/2022 Ambulatory Visit Instructions Your Diagnosis Neurogenic bladder Chronic indwelling Crum catheter Your Care Team Attending Physician - RAFFI ZHENG, Bruce Mina Primary Care Physician - Gulshan ZHENG, Marli Back This Is Your Medications List oxybutynin (oxybutynin 5 mg Tab) potassium citrate (potassium citrate 15 mEq oral tablet, extended release) Contact prescribing physician if questions or concerns acetaminophen (acetaminophen 325 mg Tab) acetohydroxamic acid (acetohydroxamic acid 250 mg oral tablet) ascorbic acid (Vitamin C 250 mg oral tablet) baclofen (baclofen 10 mg Tab) bifidobacterium-lac tobacillus (Nature's Bounty Probiotic) butalbital doxepin (doxepin 100 mg Cap) multivitamin (Multi Vitamins oral tablet) omega-3 polyunsaturated fatty acids ([place]-3 Fish Oil) omeprazole (omeprazole 40 mg Cap-DR) omeprazole (omeprazole 40 mg Cap-DR) pyridoxine (Vitamin B6 100 mg Tab) tramadol (tramadol 50 mg oral tablet) Procedures Performed Cystoscopy (07/23/2020), Cystoscopic removal of ureteric stent (06/12/2020), Change of urethral catheter (05/22/2020), ESWL - Extracorporeal shockwave lithotripsy for renal calculus (05/22/2020), Cystoscopy (04/13/2020), Cystoscopy (06/26/2019), TURP - Transurethral resection of prostate (06/26/2019), Pilar cyst of scalp (03/25/2017), 2 inq. hernia repairs, cholecystectomy, Colonoscopy, EGD (esophagogastroduod enoscopy) gastric outlet reduction. Discharge Vitals Height 175 cm Height 69 in Weight 70 kg Weight 154 lb BMI 22.86 What to do next Scheduled Follow-Up Appointments 2022 9:15 AM EDT With: ISABEL KEARNEY PA-C Where: [facility] Patient Educationon 12-14-19 Patient Education Obstetrics and Gynecology Overactive Bladder, Adult Overactive bladder is a condition in which a person has a sudden and frequent need to urinate. A person might also leak urine if he or she cannot get to the bathroom fast enough (urinary incontinence). Sometimes, symptoms can interfere with work or social activities. What are the causes? Overactive bladder is associated with poor nerve signals between your bladder and your brain. Your bladder may get the signal to empty before it is full. You may also have very sensitive muscles that make your bladder squeeze too soon. This condition may also be caused by other factors, such as: ? Medical conditions: ? Urinary tract infection. ? Infection of nearby tissues. ? Prostate enlargement. ? Bladder stones, inflammation, or tumors. ? Diabetes. ? Muscle or nerve weakness, especially from these conditions: ? A spinal cord injury. ? Stroke. ? Multiple sclerosis. ? Parkinson's disease. ? Other causes: ? Surgery on the uterus or urethra. ? Drinking too much caffeine or alcohol. ? Certain medicines, especially those that eliminate extra fluid in the body (diuretics). ? Constipation. What increases the risk? You may be at greater risk for overactive bladder if you: ? Are an older adult. ? Smoke. ? Are going through menopause. ? Have prostate problems. ? Have a neurological disease, such as stroke, dementia, Parkinson's disease, or multiple sclerosis (MS). ? Eat or drink alcohol, spicy food, caffeine, and other things that irritate the bladder. ? Are overweight or obese. What are the signs or symptoms? Symptoms of this condition include a sudden, strong urge to urinate. Other symptoms include: ? Leaking urine. ? Urinating 8 or more times a day. ? Waking up to urinate 2 or more times overnight. How is this diagnosed? This condition may be diagnosed based on: ? Your symptoms and medical history. ? A physical exam. ? Blood or urine tests to check for possible causes, such as infection. You may also need to see a health care provider who specializes in urinary tract problems. This is called a urologist. How is this treated? Treatment for overactive bladder depends on the cause of your condition and whether it is mild or severe. Treatment may include: ? Bladder training, such as: ? Learning to control the urge to urinate by following a schedule to urinate at regular intervals. ? Doing Kegel exercises to strengthen the pelvic floor muscles that support your bladder. ? Special devices, such as: ? Biofeedback. This uses sensors to help you become aware of your body's signals. ? Electrical stimulation. This uses electrodes placed inside the body (implanted) or outside the body. These electrodes send gentle pulses of electricity to strengthen the nerves or muscles that control the bladder. ? Women may use a plastic device, called a pessary, that fits into the vagina and supports the bladder. ? Medicines, such as: ? Antibiotics to treat bladder infection. ? Antispasmodics to stop the bladder from releasing urine at the wrong time. ? Tricyclic antidepressants to relax bladder muscles. ? Injections of botulinum toxin type A directly into the bladder tissue to relax bladder muscles. ? Surgery, such as: ? A device may be implanted to help manage the nerve signals that control urination. ? An electrode may be implanted to stimulate electrical signals in the bladder. ? A procedure may be done to change the shape of the bladder. This is done only in very severe cases. Follow these instructions at home: Eating and drinking ? Make diet or lifestyle changes recommended by your health care provider. These may include: ? Drinking fluids throughout the day and not only with meals. ? Cutting down on caffeine or alcohol. ? Eating a healthy and balanced diet to prevent constipation. This may include: ? Choosing foods that are high in fiber, such as beans, whole grains, and fresh fruits and vegetables. ? Limiting foods that are high in fat and processed sugars, such as fried and sweet foods. Lifestyle ? Lose weight if needed. ? Do not use any products that contain nicotine or tobacco. These include cigarettes, chewing tobacco, and vaping devices, such as e-cigarettes. If you need help quitting, ask your health care provider. General instructions ? Take [id number] and prescription medicines only as told by your health care provider. ? If you were prescribed an antibiotic medicine, take it as told by your health care provider. Do not stop taking the antibiotic even if you start to feel better. ? Use any implants or pessary as told by your health care provider. ? If needed, wear pads to absorb urine leakage. ? Keep a log to track how much and when you drink, and when you need to urinate. This will help your health care provider monitor yo (more content not included)... [facility] Urology Office/Clinic Noteon 12-13-2022 Urology Office/Clinic Note Chief Complaint SP tube change HPI Staff Pt here for 1 month SP tube change 24Fr Silicone catheter. Last SP cath change 11/15/22. Pts previous DX: abdominal pain, bladder spasms, BPH with urinary obstruction, dysuria, gross hematuria, HX of kidney stones, Hx of UTI, hypotonic neurogenic bladder, kidney stone, microscopic hematuria, retained ureteral stent, urinary retention. Oxybutynin 5 mg TID PRN and Acetohydroxamic acid 250 mg TID. Potassium Citrate 30 mEq BID for catheter encrustation prevention. S/P cysto 07/23/20, ESWL 05/22/20. Pt. states he is irrigating with Betadine solution everyday. History of Present Illness Tests reviewed: none I have reviewed the previous health record information and history for this patient from Dr. Nugent. I have reviewed and verified the staff HPI to be accurate for this encounter. There have been no associated fever, chills, flank pain, or blood in the urine. Denies any urinary infections since last encounter. Review of Systems PHQ Score Initial Depression Screen Score: 0 ROS - Provider Constitutional: denies weight loss, denies hot flashes. Eyes: denies eye problems. Gastrointestinal: denies nausea, denies vomiting. Cardiovascular: denies chest pain or angina. Integumentary: no dryness Musculoskeletal: denies musculoskeletal symptoms. ENMT: denies otolaryngeal symptoms. Respiratory: no shortness of breath. Heme/Lymph: denies easy bleeding tendency, denies easy bruising tendency. Psychiatric: no confusion, no anxiety. Genitourinary: See HPI. Physical Exam Vitals & Measurements HT: 69 in HT: 175 cm WT: 70 kg WT: 154 lb BMI: 22.86 General Appearance: alert, no distress, well nourished, well developed male. Procedure Pt had S/P catheter changed in office with no difficulties. A 24fr Silicone catheter w/5cc in balloon. Assessment/Plan 1. Neurogenic bladder (N31.9: Neuromuscular dysfunction of bladder, unspecified) Pt had S/P catheter changed in office with no difficulties. A 24fr Silicone Catheter was placed w/5cc in balloon. Pt is irrigating daily with Iodine. Pt will continue Oxybutynin 5mg TID, Potassium Citrate 15meq 2-BID Will return for S/P Catheter change in 4 weeks. 2. Chronic indwelling Crum catheter (Z97.8: Presence of other specified devices) The patient feels that the silicone catheter is doing better for him. He now is irrigating daily. There is some remaining encrustation on the internal aspect of the catheter drainage port. Continue with monthly suprapubic tube changes. Follow-up With When Contact Information RAFFI ZHENG, Bruce P, URL In 4 weeks [address] [facility] [address] [place] [address]- Additional Instructions: S/P Catheter Change Patient Education Overactive Bladder, Adult I, Lynne Arredondo, personally scribed for Dr. Nugent on 12/13/2022 12:02:54. . Documentation recorded by the scribe, Lynne Arredondo, accurately reflects the services(s) I performed and decisions made by me. Authenticated by Dr. Nugent on 12/13/2022 17:36:56. Portions of this record may have been created with voice recognition artificial intelligence software, specifically [employer], [employer] and or [employer]. Substitutions may have occurred due to the inherent limitations of voice recognition and artificial intelligence software. Problem List/Past Medical History Ongoing Abdominal pain Denny's esophagus Bladder spasms BPH with urinary obstruction Chronic indwelling Crum catheter Colitis Dysuria Gross hematuria History of kidney stones History of UTI Hypotonic neurogenic bladder Kidney stone Microscopic hematuria Neurogenic bladder Peyronie's disease Problem with urinary catheter Retained ureteral stent Screen for colon cancer Urethritis Urinary retention Urinary tract infection Historical Denny esophagus BPH with obstruction/lower urinary tract symptoms Chronic back pain Glaucoma Hydrocele Swollen testicle Vomiting Procedure/Surgical History Cystoscopy (07/23/2020), Cystoscopic removal of ureteric stent (06/12/2020), Change of urethral catheter (05/22/2020), ESWL - Extracorporeal shockwave lithotripsy for renal calculus (05/22/2020), Cystoscopy (04/13/2020), Cystoscopy (06/26/2019), TURP - Transurethral resection of prostate (06/26/2019), Pilar cyst of scalp (03/25/2017), 2 inq. hernia repairs, cholecystectomy, Colonoscopy, EGD (esophagogastroduod enoscopy) gastric outlet reduction. Medications acetaminophen 325 mg Tab, 650 mg= 2 tab(s), Oral, q6hr, PRN acetohydroxamic acid 250 mg oral tablet, 250 mg= 1 tab(s), Oral, TID, 11 refills baclofen 10 mg Tab, 10 mg= 1 tab(s), Oral, BID butalbital doxepin 100 mg Cap, 100 mg= 1 cap(s), Oral, Once a day (at bedtime) Multi Vitamins oral tablet, 1 tab(s), Oral, Daily Nature's Bounty Probiotic, 1 tab(s), Oral, Daily [place]-3 Fish Oil, 500 mg, Oral, Da (more content not included)... [facility] Comment on above: Result Comment: Elec tronically Signed By: RAFFI ZHENG, Bruce Mina\.br\Date and Time Signed: 12/13/22 17:37 EDT\.br\Electronically Co-Signed By: Lynne Arredondo\.br\Date and Time Co-Signed: 12/13/22 12:03 EDT Ambulatory Visit Summaryon 0 11-15-2022 Ambulatory Visit Summary FLORA CHANDRA :1960 Visit Date:11/15/2022 Ambulatory Visit Instructions Your Diagnosis Neurogenic bladder Your Care Team Attending Physician - Bruce NUGENT MD Primary Care Physician - Gulshan ZHENG, Marli Back This Is Your Medications List acetohydroxamic acid (acetohydroxamic acid 250 mg oral tablet) oxybutynin (oxybutynin 5 mg Tab) potassium citrate (potassium citrate 15 mEq oral tablet, extended release) Contact prescribing physician if questions or concerns acetaminophen (acetaminophen 325 mg Tab) ascorbic acid (Vitamin C 250 mg oral tablet) baclofen (baclofen 10 mg Tab) bifidobacterium-lac tobacillus (Nature's Bounty Probiotic) butalbital doxepin (doxepin 100 mg Cap) multivitamin (Multi Vitamins oral tablet) omega-3 polyunsaturated fatty acids ([place]-3 Fish Oil) omeprazole (omeprazole 40 mg Cap-DR) omeprazole (omeprazole 40 mg Cap-DR) pyridoxine (Vitamin B6 100 mg Tab) tramadol (tramadol 50 mg oral tablet) Procedures Performed Cystoscopy (07/23/2020), Cystoscopic removal of ureteric stent (06/12/2020), Change of urethral catheter (05/22/2020), ESWL - Extracorporeal shockwave lithotripsy for renal calculus (05/22/2020), Cystoscopy (04/13/2020), Cystoscopy (06/26/2019), TURP - Transurethral resection of prostate (06/26/2019), Pilar cyst of scalp (03/25/2017), 2 inq. hernia repairs, cholecystectomy, Colonoscopy, EGD (esophagogastroduod enoscopy) gastric outlet reduction. Discharge Vitals Height 175 cm Height 69 in Weight 70 kg Weight 154 lb BMI 22.86 What to do next Scheduled Follow-Up Appointments Tuesday 10:15 AM EDT With: RAFFI ZHENG, Bruce Mina Where: [facility] Patient Educationon 11-16-19 Patient Education Urology Indwelling Urinary Catheter Care, Adult An indwelling urinary catheter is a thin, flexible tube that is placed into the bladder to help drain urine out of the body. The catheter is inserted into the urethra. The urethra is the part of the body that drains urine from the bladder. Urine drains from the catheter into a drainage bag outside of the body. Taking good care of your catheter will keep it working properly and help to prevent problems from developing. What are the risks? ? Bacteria may get into your bladder and cause a urinary tract infection. ? Urine flow can become blocked. This can happen if the catheter is not working correctly, or if you have sediment or a blood clot in your bladder or catheter. ? Tissue near the catheter may become irritated and may bleed. How to wear your catheter and your drainage bag Supplies needed ? Adhesive tape or a leg strap. ? Alcohol wipe or soap and water (if you use tape). ? A clean towel (if you use tape). ? Overnight drainage bag. ? Smaller drainage bag (leg bag). Wearing your catheter and bag Use adhesive tape or a leg strap to attach your catheter to your leg. ? Make sure the catheter is not pulled tight. ? If a leg strap gets wet, replace it with a dry one. ? If you use adhesive tape: 1. Use an alcohol wipe or soap and water to wash off any stickiness on your skin where you had tape before. 2. Use a clean towel to pat-dry the area. 3. Apply the new tape. You should have received a large overnight drainage bag and a smaller leg bag that fits underneath clothing. ? You may wear the overnight bag at any time, but you should not wear the leg bag at night. ? Make sure the overnight drainage bag is always lower than the level of your bladder, but do not let it touch the floor. Before you go to sleep, hang the bag inside a wastebasket that is covered by a clean plastic bag. ? Secure the leg bag according to integration engineer's instructions. This may be above or below the knee, depending on the length of the tubing. Make sure that: ? The leg bag is below the bladder. ? The tubing does not have loops or too much tension. How to care for the skin around the catheter Supplies needed ? A clean washcloth. ? Water and mild soap. ? A clean towel. Caring for your skin and catheter ? Every day, use a clean washcloth and soapy water to clean the skin around your catheter. 1. Wash your hands with soap and water. 2. Wet a washcloth in warm water and mild soap. 3. Clean the skin around your urethra. ? If you are female: ? Use one hand to gently spread the folds of skin around your vagina (labia). ? With the washcloth in your other hand, wipe the inner side of your labia on each side. Do this in a [id number] direction. ? If you are male: ? Use one hand to pull back any skin that covers the end of your penis (foreskin). ? With the washcloth in your other hand, wipe your penis in small circles. Start wiping at the tip of your penis, then move outward from the catheter. ? Move the foreskin back in place, if needed. 4. With your free hand, hold the catheter close to where it enters your body. Keep holding the catheter during cleaning so it does not get pulled out. 5. Use your other hand to clean the catheter with the washcloth. ? Only wipe downward on the catheter, toward the bag. ? Do not wipe upward toward your body, because that may push bacteria into your urethra and cause infection. 6. Use a clean towel to pat-dry the catheter and the skin around it. Make sure to wipe off all soap. 7. Wash your hands with soap and water. ? Shower every day. Do not take baths. ? Do not use cream, ointment, or lotion on the area where the catheter enters your body, unless your health care provider tells you to do that. ? Do not use powders, sprays, or lotions on your genital area. ? Check your skin around the catheter every day for signs of infection. Check for: ? Redness, swelling, or pain. ? Fluid or blood. ? Warmth. ? Pus or a bad smell. How to empty the drainage bag Supplies needed ? Rubbing alcohol. ? Gauze pad or cotton ball. ? Adhesive tape or a leg strap. Emptying the bag Empty your drainage bag (your overnight drainage bag or your leg bag) when it is ??? full, or at least 2?3 times a day. Clean the drainage bag according to the integration engineer's instructions or as told by your health care provider. 1. Wash your hands with soap and water. 2. Detach the drainage bag from your leg. 3. Hold the drainage bag over the toilet or a clean container. Make sure the drainage bag is lower than your hips and bladder. This stops urine from going back into the tubing and into your bladder. 4. Open the pour spout at the bottom of the bag. 5. Empty the urine into the toilet or container. Do not let the pour spout touch any surface. This precaution is important to prevent bacteria from getting (more content not included)... [facility] Urology Office/Clinic Noteon 11-15-2022 Urology Office/Clinic Note Chief Complaint SP change HPI Staff Pt is a 61 yr old Male here today for a SP cath change. Pt. was in [facility] on 10/25/22 due to catheter not draining. Pt. states catheter was changed at ER. Pt. states he is flushing his catheter everyday. Pts previous DX: abdominal pain, bladder spasms, BPH with urinary obstruction, dysuria, gross hematuria, HX of kidney stones, Hx of UTI, hypotonic neurogenic bladder, kidney stone, microscopic hematuria, retained ureteral stent, urinary retention. Pts currently taking oxybutynin 5mg QD and Potassium Citrate 15meq 2-BID. S/P cysto 07/23/20, ESWL 05/22/20. History of Present Illness Pt is here for S/P Catheter change Pt has no associated symptoms, no fever, no chills, no flank pain. I have reviewed the previous health record information and history for this patient from Dr. Nugent Review of Systems PHQ Score Initial Depression Screen Score: 0 ROS - Provider Constitutional: denies weight loss, denies hot flashes. Eyes: denies eye problems. Gastrointestinal: denies nausea, denies vomiting. Cardiovascular: denies chest pain or angina. Integumentary: no dryness Musculoskeletal: denies musculoskeletal symptoms. ENMT: denies otolaryngeal symptoms. Respiratory: no shortness of breath. Heme/Lymph: denies easy bleeding tendency, denies easy bruising tendency. Psychiatric: no confusion, no anxiety. Genitourinary: Pt has S/P Catheter Physical Exam Vitals & Measurements HT: 69 in HT: 175 cm WT: 70 kg WT: 154 lb BMI: 22.86 General Appearance: alert, no distress, well nourished, well developed male. Procedure Pt had S/P catheter changed in office with no difficulties. A 24fr Silicone catheter w/5cc in balloon. Assessment/Plan Will return for S/P Catheter change in 3 weeks. 1. Neurogenic bladder (N31.9: Neuromuscular dysfunction of bladder, unspecified) Pt had S/P catheter changed in office with no difficulties. A 24fr Silicone Catheter was placed w/5cc in balloon. Pt is irrigating daily with Iodine. Pt will continue Oxybutynin 5mg TID, Potassium Citrate 15meq 2-BID 2. Chronic indwelling suprapubic catheter. We again had an extensive discussion about the fact that we have tried many different medications trying to decrease his production of catheter encrustation. Most recently he continues on potassiums citrate at 15 mEq p.o. twice daily. He is also performing self irrigations with Betadine solution. We did look up his stone constituents he from the catheter and as well as magnesium ammonium phosphate. He is actually done better over the past 3 weeks after the large 24 Trinidadian silicone catheter was utilized. We replaced that today without difficulty. He had minimal encrustation of the catheter compared to previous. Perhaps a combination of antiseptic bladder irrigations and the silicone catheter will decrease his encrustation rates. We also briefly discussed more aggressive options such as urinary diversion procedures, such as an ileal loop urinary diversion. He is not interested at this at all at this time but I felt we did need to talk about it. He agrees with the plan and we will see him back in about 3 to 4 weeks for suprapubic catheter change Follow-up With When Contact Information Bruce NUGENT MD, URL In 3 weeks Additional Instructions: S/P Catheter Change Patient Education Indwelling Urinary Catheter Care, Adult I, Ahstyn Chung, personally scribed for Dr. Nugent on 11/15/2022 10:21:52. . Documentation recorded by the scribe, Ashtyn Chung, accurately reflects the services(s) I performed and decisions made by me. Authenticated by Dr. Nugent on 11/15/2022 10:23:40. Portions of this record may have been created with voice recognition artificial intelligence software, specifically [employer], [employer] and or [employer]. Substitutions may have occurred due to the inherent limitations of voice recognition and artificial intelligence software. Problem List/Past Medical History Ongoing Abdominal pain Denny's esophagus Bladder spasms BPH with urinary obstruction Colitis Dysuria Gross hematuria History of kidney stones History of UTI Hypotonic neurogenic bladder Kidney stone Microscopic hematuria Neurogenic bladder Peyronie's disease Problem with urinary catheter Retained ureteral stent Screen for colon cancer Urethritis Urinary retention Urinary tract infection Historical Denny esophagus BPH with obstruction/lower urinary tract symptoms Chronic back pain Glaucoma Hydrocele Swollen testicle Vomiting Procedure/Surgical History Cystoscopy (07/23/2020), Cystoscopic removal of ureteric stent (06/12/2020), Change of urethral catheter (05/22/2020), ESWL - Extracorporeal shockwave lithotripsy for renal calculus (05/22/2020), Cystoscopy (04/13/2020), Cystoscopy (06/26/2019), TURP - Transurethral resection of prostate (06/26/2019), Pilar cyst of scalp (03/25 (more content not included)... Normal [facility] Comment on above: Result Comment: Elec tronically Signed By: Bruce NUGENT MD\.br\Date and Time Signed: 11/15/22 10:25 EDT\.br\Electronically Co-Signed By: Ashtyn Chung\.br\Date and Time Co-Signed: 11/15/22 10:23 EDT Patient Educationon 10-14-19 Patient Education Urology Neurogenic Bladder Neurogenic bladder is a bladder control disorder. It is usually caused by problems with the nerves that control the bladder. The brain sends signals through the spinal cord to the muscles in the bladder that start and stop urine flow. With neurogenic bladder, the nerves and muscles do not work together the way they should. This condition may make the bladder overactive, meaning you have trouble holding urine. In other cases, it may make the bladder underactive. This means that you have trouble passing urine. What are the causes? This condition may be caused by nerve damage or a condition that disrupts the signals from your brain to your bladder. Many things can cause these nerve problems, including: ? A disease that affects the nervous system, such as: ? Alzheimer's disease. ? Cerebral palsy. ? Multiple sclerosis. ? Diabetes. ? Parkinson's disease. ? Damage to your brain or spinal cord. This can come from: ? Trauma. ? Tumors. ? Infection. ? Surgery. ? Alcohol abuse. ? Stroke. ? A congenital disability that affects the spinal cord. What increases the risk? You are more likely to develop this condition if you have nerve damage or a nerve disorder. What are the signs or symptoms? Signs and symptoms of this condition include: ? Leaking or gushing urine (incontinence). ? A sudden, strong urge to pass urine (urgency). ? Frequent urination during the day and night. ? Being unable to empty your bladder completely (urinary retention). ? Frequent urinary tract infections. How is this diagnosed? This condition may be diagnosed based on: ? Your symptoms and medical history. ? A physical exam. ? Records from a bladder diary. You may be asked to keep a record or log of your bladder symptoms and the times that you urinate. You may also have tests, such as: ? A urine test to check for infection. ? A bladder scan after you urinate to see how much urine is left in your bladder. ? Tests to measure your urine flow and see how well the flow is controlled (urodynamic tests). ? A procedure that uses a small device with a camera to look through your urethra into your bladder (cystoscopy). A health care provider who specializes in the urinary tract (urologist) may do this test. ? Imaging tests of your brain or spine, such as MRI or CT scan. How is this treated? Treatment for this condition depends on the cause and the symptoms that you have. Work closely with your health care provider to find the treatments that will improve your quality of life. Treatment options include: ? Learning ways to control when you urinate, such as: ? Urinating at scheduled times. ? Training yourself to delay urination. ? Exercises to strengthen the muscles that control urine flow (Kegel exercises). ? Avoiding foods or drinks that make your symptoms worse. ? Taking medicines to: ? Stimulate an underactive bladder. ? Relax an overactive bladder. ? Treat a urinary tract infection. ? Learning how to use a thin tube (catheter) to empty your bladder. A catheter is a hollow tube that you pass through your urethra. ? Procedures to stimulate the nerves that control your bladder. ? Surgery, if other treatments do not help. Follow these instructions at home: Lifestyle ? Keep a bladder diary to find out which foods, liquids, or activities make your symptoms worse. ? Use your bladder diary to schedule bathroom trips. If you are away from home, plan to be near a bathroom when your schedule says you will need one. ? Limit beverages that stimulate urination. These include soda, coffee, and tea. ? After urinating, wait a few minutes and try again. ? Make sure you urinate just before you leave the house and just before you go to bed. Kegel exercises Do Kegel exercises to strengthen the muscles that control the passing of urine. These muscles are the ones you use to try to hold urine when you need to urinate. To do Kegel exercises: 1. Squeeze your pelvic floor muscles tight, as if you are trying to stop the flow of urine. You should feel a tight lift in your rectal area. If you are female, you should also feel a tightness in your vaginal area. Keep your stomach, buttocks, and legs relaxed. 2. Hold the muscles tight for 5?10 seconds. 3. Relax your muscles for the same amount of time. 4. Repeat 10 times. Repeat this exercise 3 times a day or as many times as told by your health care provider. General instructions ? Take [id number] and prescription medicines only as told by your health care provider. ? Keep all follow-up visits. This is important. Contact a health care provider if: ? You are having a hard time controlling your symptoms. ? Your symptoms are getting worse. ? You have signs of a urinary tract infection. These may include: ? A burning feeling when you urinate. ? Fever or chills. ? Cloudy or bloody urine. (more content not included)... Normal [facility] Urology Office/Clinic Noteon 10-13-2022 Urology Office/Clinic Note Chief Complaint clogged SP tube HPI Staff Office visit due to clogged SP tube Previous Dx: Urinary retention, Hypotonic neurogenic bladder, bladder spasms *oxybutynin 5mg TID* Patient currently has a 22fr Patient states that he noticed last night that he was not draining out of his catheter but draining from his penis instead. History of Present Illness Pt is here for S/P tube change due to a clogged tube. Pt has no associated symptoms, no fever, no chills, no flank pain. I have reviewed the previous health record information and history for this patient from Dr. Nugent Review of Systems PHQ Score Initial Depression Screen Score: 0 ROS - Provider Constitutional: denies weight loss, denies hot flashes. Eyes: denies eye problems. Gastrointestinal: denies nausea, denies vomiting. Cardiovascular: denies chest pain or angina. Integumentary: no dryness Musculoskeletal: denies musculoskeletal symptoms. ENMT: denies otolaryngeal symptoms. Respiratory: no shortness of breath. Heme/Lymph: denies easy bleeding tendency, denies easy bruising tendency. Psychiatric: no confusion, no anxiety. Genitourinary: Pt has S/P tube Physical Exam Vitals & Measurements HT: 69 in HT: 175 cm WT: 70 kg WT: 154 lb BMI: 22.86 General Appearance: alert, no distress, well nourished, well developed male. Procedure Pt had S/P catheter changed in office with no difficulties. A 24fr w/10cc in ballon Assessment/Plan 1. Hypotonic neurogenic bladder (N31.9: Neuromuscular dysfunction of bladder, unspecified) Pt had S/P catheter changed in office with no difficulties. A 24fr was placed with 10cc in balloon Pt will continue Oxybutynin 5mg TIB and Potassium Citrate 15meq 2-BID 2. BPH with urinary obstruction (N40.1: Benign prostatic hyperplasia with lower urinary tract symptoms) Pt is not currently on any prostate medications. Other obstructive and reflux uropathy (N13.8: Other obstructive and reflux uropathy) Overall the patient has a longstanding neurogenic bladder with urinary retention. He is now only 2 weeks status post suprapubic tube change and the catheter is already clogged up again. He has tried multiple medications as noted above and this should continue. He is also contacted Mr. Sage Copeland and his possible suprapubic tube catheter regimen. Catheter changed without difficulty and I did increase it to 24 Trinid[place] with about 6 in the balloon. We will see him back in about 2 to 3 weeks for tube change. He will roving changer to mainly utilizing the plug now versus the bag and see if this makes a difference. He had very minimal encrustation on the catheter itself this time but certainly had the drainage port clogged off. Follow-up With When Contact Information RAFFI ZHENG, Bruce Mina, URL Additional Instructions: Patient Education Neurogenic Bladder I, Ashtyn Chung, personally scribed for Dr. Nugent on 10/13/2022 11:15:28. . Documentation recorded by the scribe, Ashtyn Chung, accurately reflects the services(s) I performed and decisions made by me. Authenticated by Dr. Nugent on 10/13/2022 11:16:02. Problem List/Past Medical History Ongoing Abdominal pain Denny's esophagus Bladder spasms BPH with urinary obstruction Colitis Dysuria Gross hematuria History of kidney stones History of UTI Hypotonic neurogenic bladder Kidney stone Microscopic hematuria Neurogenic bladder Peyronie's disease Problem with urinary catheter Retained ureteral stent Screen for colon cancer Urethritis Urinary retention Urinary tract infection Historical Denny esophagus BPH with obstruction/lower urinary tract symptoms Chronic back pain Glaucoma Hydrocele Swollen testicle Vomiting Procedure/Surgical History Cystoscopy (07/23/2020), Cystoscopic removal of ureteric stent (06/12/2020), Change of urethral catheter (05/22/2020), ESWL - Extracorporeal shockwave lithotripsy for renal calculus (05/22/2020), Cystoscopy (04/13/2020), Cystoscopy (06/26/2019), TURP - Transurethral resection of prostate (06/26/2019), Pilar cyst of scalp (03/25/2017), 2 inq. hernia repairs, cholecystectomy, Colonoscopy, EGD (esophagogastroduod enoscopy) gastric outlet reduction. Medications acetaminophen 325 mg Tab, 650 mg= 2 tab(s), Oral, q6hr, PRN baclofen 10 mg Tab, 10 mg= 1 tab(s), Oral, BID butalbital doxepin 100 mg Cap, 100 mg= 1 cap(s), Oral, Once a day (at bedtime) Multi Vitamins oral tablet, 1 tab(s), Oral, Daily Nature's Bounty Probiotic, 1 tab(s), Oral, Daily [place]-3 Fish Oil, 500 mg, Oral, Daily omeprazole 40 mg Cap-DR, 40 mg, Oral, Daily, 1 refills omeprazole 40 mg Cap-DR, 40 mg= 1 cap(s), Oral, Daily, 1 refills oxybutynin 5 mg Tab, 5 mg= 1 tab(s), Oral, TID, 3 refills potassium citrate 15 mEq oral tablet, extended release, 30 mEq= 2 tab(s), Oral, BID, 3 refills tramadol 50 mg oral tablet, 50 mg= 1 tab(s), Oral, q4hr, PRN Vitamin B6 100 mg Tab, 100 m (more content not included)... [facility] Comment on above: Result Comment: Elec tronically Signed By: Bruce NUGENT MD\.br\Date and Time Signed: 10/13/22 11:17 EDT\.br\Electronically Co-Signed By: Ashtyn Chung\.br\Date and Time Co-Signed: 10/13/22 11:15 EDT Urology Office/Clinic Noteon 09-28-2022 Urology Office/Clinic Note Chief Complaint pt here for backed up S/P tube HPI Staff Pt is a 61 yr old Male here today for a backed up s/p tube. Pts previous DX: bladder spasms, BPH with urinary obstruction, dysuria, gross hematuria, history of kidney stones, history of UTI, kidney stone, microscopic hematuria, neurogenic bladder, problem with urinary catheter, retained ureteral stent, urinary retention, UTI. Pts currently taking Oxybutynin 5mg TID. S/P cysto 07/23/20, ESWL 05/22/20. Dysuria: yes Hematuria: denies, pt states he has seen white crystals in the bag Leaking: some leakage Abdominal pain: denies Flank pain: denies History of Present Illness Tests reviewed: none. I have reviewed the previous health record information and history for this patient from Dr. Nugent. I have reviewed and verified the staff HPI to be accurate for this encounter. There have been no associated fever, chills, flank pain, or blood in the urine. Denies any urinary infections since last encounter. Review of Systems PHQ Score Initial Depression Screen Score: 0 ROS - Provider Constitutional: denies weight loss, denies hot flashes. Eyes: denies eye problems. Gastrointestinal: denies nausea, denies vomiting. Cardiovascular: denies chest pain or angina. Integumentary: no dryness Musculoskeletal: denies musculoskeletal symptoms. ENMT: denies otolaryngeal symptoms. Respiratory: no shortness of breath. Heme/Lymph: denies easy bleeding tendency, denies easy bruising tendency. Psychiatric: no confusion, no anxiety. Genitourinary: See HPI. Physical Exam Vitals & Measurements HR: 102(Peripheral) BP: 140/95 HT: 69 in HT: 175 cm WT: 70 kg WT: 154 lb BMI: 22.86 General Appearance: alert, no distress, well nourished, well developed male. Genitourinary: normal scrotum, normal testes, normal urethra, normal epididymis, normal vas deferens/spermatic cord. Flank Pain: none. Bladder: nonpalpable. Assessment/Plan Latest PSA 11/18/21 - 0.80. 1. Urinary retention (R33.9: Retention of urine, unspecified) Pt presented today for a plugged SP tube. Last change 09/08/22. Taking Potassium citrate 30 mEq BID. Stent encrustation analysis - 40% carbonate apatite and 60% mag judi phosphate. Resistance while removing SP tube. End of cath plugged upon removal. The 22 Fr SP tube was changed in the office today and flushed appropriately to ensure proper placement. Easiest SP tube removal today. Follow up 3-4 week for SP tube change or sooner if needed. Pt understands and agrees with plan. -Cont supplement management with Mr. Copeland. 2. Hypotonic neurogenic bladder (N31.9: Neuromuscular dysfunction of bladder, unspecified) See #1. 3. Bladder spasms (N32.89: Other specified disorders of bladder) Taking Oxybutynin 5 mg TID. Overall the patient's suprapubic tube has plugged. I was unable to irrigate it. Therefore it was changed without difficulty. He had encrustation around the catheter balloon and around the drainage port. The new catheter was placed without difficulty and he had about 500 cc in his bladder. This drained out nicely. 5 cc into the balloon. We will tentatively plan for repeat suprapubic tube change in about 1 month Follow-up With When Contact Information Bruce NUGENT MD, URL [address] [facility] [address] [place] [address]- Additional Instructions: 3-4 wk sp tube change Patient Education IYolanda, personally scribed for Dr. Nugent on 09/28/2022 10:55:50. . Documentation recorded by the scribe, Yolanda Bullard, accurately reflects the services(s) I performed and decisions made by me. Authenticated by Dr. Nugent on 09/28/2022 12:05:39. Problem List/Past Medical History Ongoing Abdominal pain Denny's esophagus Bladder spasms BPH with urinary obstruction Colitis Dysuria Gross hematuria History of kidney stones History of UTI Hypotonic neurogenic bladder Kidney stone Microscopic hematuria Neurogenic bladder Peyronie's disease Problem with urinary catheter Retained ureteral stent Screen for colon cancer Urethritis Urinary retention Urinary tract infection Historical Denny esophagus BPH with obstruction/lower urinary tract symptoms Chronic back pain Glaucoma Hydrocele Swollen testicle Vomiting Procedure/Surgical History Cystoscopy (07/23/2020), Cystoscopic removal of ureteric stent (06/12/2020), Change of urethral catheter (05/22/2020), ESWL - Extracorporeal shockwave lithotripsy for renal calculus (05/22/2020), Cystoscopy (04/13/2020), Cystoscopy (06/26/2019), TURP - Transurethral resection of prostate (06/26/2019), Pilar cyst of scalp (03/25/2017), 2 inq. hernia repairs, cholecystectomy, Colonoscopy, EGD (esophagogastroduod enoscopy) gastric outlet reduction. Medications acetaminophen 325 mg Tab, 650 mg= 2 tab(s), Oral, q6hr, PRN baclofen 10 mg Tab, 10 mg= 1 tab(s), Oral, BID butalbital doxepin 100 mg Cap, 10 (more content not included)... Normal [facility] Comment on above: Result Comment: Elec tronically Signed By: Bruce NUGENT MD\.br\Date and Time Signed: 09/28/22 12:06 EDT\.br\Electronically Co-Signed By: Yolanda Bullard\.br\Date and Time Co-Signed: 09/28/22 10:56 EDT CHEMISTRYOrdered By: SYSTEM SYSTEM on 09-13-2022 Cobalamin (Vitamin B12) [Mass/Vol] 1043 pg/mL Normal 50 - 1500 pg/mL [facility] Remisol CHEMISTRYOrdered By: SYSTEM SYSTEM on 09-08-2022 Albumin [Mass/Vol] 4.5 g/dL Normal 3.3 - 5.0 gm/dL [facility] Albumin/Globulin [Mass ratio] 1.2 {ratio} Normal 1.1 - 2.2 [facility] ALP [Catalytic activity/Vol] 67 [iU]/d Normal 21 - 98 Int._Unit/L [facility] Rem[facility] ALT No additional P-5'-P [Catalytic activity/Vol] 46 [iU]/d Normal 6 - 46 Int._Unit/L [facility] AST [Catalytic activity/Vol] 33 [iU]/d Normal 5 - 43 Int._Unit/L [facility] Bilirubin [Mass/Vol] 0.8 mg/dL Normal 0.0 - 1 .1 mg/dL [facility] Bilirubin.direct [Mass/Vol] 0.2 mg/dL Normal 0.1 - 0.4 mg/dL [facility] Remisol Bilirubin.indirect [Mass or moles/Vol] 0.6 mg/dL Normal 0.1 - 0.9 mg/dL [facility] Globulin (S) [Mass/Vol] 3.8 g/dL Normal 1.4 - 4.0 gm/dL [facility] Protein [Mass/Vol] 8.3 g/dL High 6.0 - 7.8 gm/dL [facility] HEMATOLOGYOrdered By: SYSTEM SYSTEM on 09-08-2022 Basophils/100 WBC (Bld) 1.0 % Normal 0.0 - 2.0 % [facility]eAutoSS Basophils/Leukocytes Auto (Bld) [Pure # fraction] 0.0 E9/L Normal 0.0 - 0.2 E9/L [facility] Eosinophils/100 WBC (Bld) 0.6 % Normal 0.0 - 8.0 % [facility] Eosinophils/Leukocyte s Auto (Bld) [Pure # fraction] 0.0 E9/L Normal 0.0 - 0.5 E9/L [facility] Lymphocytes/100 WBC (Bld) 23.2 % Normal 14.0 - 50.0 % [facility] Lymphocytes/Leukocyte s Auto (Bld) [Pure # fraction] 1.2 E9/L Normal 1.0 - 4.0 E9/L [facility] Monocytes/100 WBC (Bld) 9.8 % Normal 4.0 - 14.0 % [facility] Monocytes/Leukocytes Auto (Bld) [Pure # fraction] 0.5 E9/L Normal 0.2 - 1.0 E9/L [facility] Neutrophils/100 WBC (Bld) 65.4 % Normal 36.0 - 75.0 % [facility] Neutrophils/Leukocyte s Auto (Bld) [Pure # fraction] 3.3 E9/L Normal 2.0 - 7.5 E9/L [facility] HEMATOLOGYOrdered By: Joanna Kirk on 09-08-2022 Erythrocyte distribution width (RBC) [Ratio] 14.3 % High 10.9 - 14.2 % [facility] Hematocrit (Bld) [Volume fraction] 49.0 % Normal 37.7 - 49.0 % [facility] Hemoglobin (Bld) [Mass/Vol] 16.5 g/dL Normal 13.5 - 17.5 gm/dL [facility] MCH (RBC) [Entitic mass] 29.5 pg Normal 27.0 - 34.0 pg [facility] MCHC (RBC) [Mass/Vol] 33.7 g/dL Normal 31.4 - 36.0 gm/dL [facility] MCV (RBC) [Entitic vol] 87.5 fL Normal 80.0 - 100.0 fL [facility] Platelet mean volume (Bld) [Entitic vol] 7.5 fL Normal 6.4 - 10.8 fL [facility] Platelets (Bld) [#/Vol] 190.0 E9/L Normal 150.0 - 500.0 E9/L [facility] RBC (Bld) [#/Vol] 5.6 E12/L Normal 4.3 - 5.9 E12/L [facility] WBC corrected for nucl RBC Auto (Bld) [#/Vol] 5.0 E9/L Normal 4.0 - 11.0 E9/L [facility] CHEMISTRYOrdered By: SYSTEM SYSTEM on 08-16-2022 Albumin [Mass/Vol] 4.3 g/dL Normal 3.3 - 5.0 gm/dL [facility] Albumin/Globulin [Mass ratio] 1.2 {ratio} Normal 1.1 - 2.2 [facility] ALP [Catalytic activity/Vol] 70 [iU]/d Normal 21 - 98 Int._Unit/L [facility] ALT No additional P-5'-P [Catalytic activity/Vol] 35 [iU]/d Normal 6 - 46 Int._Unit/L [facility] AST [Catalytic activity/Vol] 27 [iU]/d Normal 5 - 43 Int._Unit/L [facility] Bilirubin [Mass/Vol] 0.8 mg/dL Normal 0.0 - 1 .1 mg/dL [facility] Bilirubin.direct [Mass/Vol] 0.2 mg/dL Normal 0.1 - 0.4 mg/dL [facility] Bilirubin.indirect [Mass or moles/Vol] 0.6 mg/dL Normal 0.1 - 0.9 mg/dL [facility] Globulin (S) [Mass/Vol] 3.5 g/dL Normal 1.4 - 4.0 gm/dL [facility] Protein [Mass/Vol] 7.8 g/dL Normal 6.0 - 7.8 gm/dL [facility] HEMATOLOGYOrdered By: SYSTEM SYSTEM on 08-16-2022 Basophils/100 WBC (Bld) 0.7 % Normal 0.0 - 2.0 % [facility] Basophils/Leukocytes Auto (Bld) [Pure # fraction] 0.0 E9/L Normal 0.0 - 0.2 E9/L [facility] Eosinophils/100 WBC (Bld) 0.3 % Normal 0.0 - 8.0 % [facility] Eosinophils/Leukocyte s Auto (Bld) [Pure # fraction] 0.0 E9/L Normal 0.0 - 0.5 E9/L [facility] Lymphocytes/100 WBC (Bld) 18.0 % Normal 14.0 - 50.0 % [facility] Lymphocytes/Leukocyte s Auto (Bld) [Pure # fraction] 0.9 E9/L Low 1.0 - 4.0 E9/L [facility] Monocytes/100 WBC (Bld) 9.5 % Normal 4.0 - 14.0 % [facility] Monocytes/Leukocytes Auto (Bld) [Pure # fraction] 0.5 E9/L Normal 0.2 - 1.0 E9/L [facility] Neutrophils/100 WBC (Bld) 71.5 % Normal 36.0 - 75.0 % [facility] Neutrophils/Leukocyte s Auto (Bld) [Pure # fraction] 3.7 E9/L Normal 2.0 - 7.5 E9/L [facility] HEMATOLOGYOrdered By: Joanna Kirk on 08-16-2022 Erythrocyte distribution width (RBC) [Ratio] 14.1 % Normal 10.9 - 14.2 % [facility] Hematocrit (Bld) [Volume fraction] 48.0 % Normal 37.7 - 49.0 % [facility] Hemoglobin (Bld) [Mass/Vol] 16.5 g/dL Normal 13.5 - 17.5 gm/dL [facility] MCH (RBC) [Entitic mass] 29.8 pg Normal 27.0 - 34.0 pg [facility] MCHC (RBC) [Mass/Vol] 34.3 g/dL Normal 31.4 - 36.0 gm/dL [facility] MCV (RBC) [Entitic vol] 86.8 fL Normal 80.0 - 100.0 fL [facility] Platelet mean volume (Bld) [Entitic vol] 6.9 fL Normal 6.4 - 10.8 fL [facility] Platelets (Bld) [#/Vol] 255.0 E9/L Normal 150.0 - 500.0 E9/L [facility] RBC (Bld) [#/Vol] 5.5 E12/L Normal 4.3 - 5.9 E12/L [facility] WBC corrected for nucl RBC Auto (Bld) [#/Vol] 5.2 E9/L Normal 4.0 - 11.0 E9/L [facility] MAGNESIUMon 07-21-2022 Magnesium [Mass/Vol] 2.1 mg/dL Normal 1.8-2.4 [place] [facility] Comment on above: Performed By: #### M G, BMP #### [facility] [address] [place] [address] Dr. Geraldine Welch PROF CHEM 8 (BAS METB)on Anion gap [Moles/Vol] 8.1 mmol/L Normal [facility] Comment on above: Performed By: #### M G, BMP #### [facility] [address] [place] [address] Dr. Geraldine Welch Calcium [Mass/Vol] 9.7 mg/dL Normal 8.5-10.1 [facility] Comment on above: Performed By: #### M G, BMP #### [facility] [address] [place] [address] Dr. Geraldine Welch Chloride [Moles/Vol] 102 mmol/L Normal 98-107 [facility] Comment on above: Performed By: #### M G, BMP #### [facility] [address] [place] [address] Dr. Geraldine Welch CO2 [Moles/Vol] 30.9 mmol/L Normal 21.0-32.0 [facility] Comment on above: Performed By: #### M G, BMP #### [facility] [address] [place] [address] Dr. Geraldine Welch Creatinine [Mass/Vol] 0.90 mg/dL Normal 0.70-1.30 [facility] Comment on above: Performed By: #### M G, BMP #### [facility] [address] [place] [address] Dr. Geraldine Welch EGFR-AF BAHAMIAN >60 Normal >=60 [facility] Comment on above: Performed By: #### M G, BMP #### [facility] [address] [place] [address] Dr. Geraldine Welch EGFR-NON AF BAHAMIAN >60 Normal >=60 [facility] Comment on above: Performed By: #### M G, BMP #### [facility] [address] [place] [address] Dr. Geraldine Welch Glucose [Mass/Vol] 110 mg/dL Critically high 74-106 [facility] Comment on above: Performed By: #### M G, BMP #### [facility] [address] [address] [address] Geraldine Welch Potassium [Moles/Vol] 4.0 mmol/L Normal 3.5-5.1 [facility] Comment on above: Performed By: #### M G, BMP #### [facility] [address] [place] [address] Dr. Geraldine Welch Sodium [Moles/Vol] 137 mmol/L Normal 136-145 [facility] Comment on above: Performed By: #### M G, BMP #### [facility] [address] [place] [address] Dr. Geraldine Welch Urea nitrogen [Mass/Vol] 17.0 mg/dL Normal 7.0-18.0 [facility] Comment on above: Performed By: #### Devante Mccloud, BMP #### [facility] [address] [place] [address] Dr. Geraldine Welch Urea nitrogen/Creatinine [Mass ratio] 18.9 mg/mg Normal [facility] Comment on above: Performed By: #### Devante Mccloud, BMP #### [facility] [address] [place] [address] Dr. Geraldine Welch VITAMIN B12on 07-21-2022 Cobalamin (Vitamin B12) [Mass/Vol] 1690.0 pg/mL Critically high 193.0-986.0 [facility] Comment on above: Performed By: #### V ITB12 #### [facility] [address] [place] [address] Dr. Geraldine Welch CHEMISTRYOrdered By: SYSTEM SYSTEM on 06-09-2022 Anion gap [Moles/Vol] 13 mmol/L Normal 6 - 16 mEq/L [facility] Remisol Calcium [Mass/Vol] 9.4 mg/dL Normal 8.9 - 11. 1 mg/dL [facility]isol Chloride [Moles/Vol] 99 mmol/L Low 101 - 1 11 mmol/L [facility] Remisol CO2 [Moles/Vol] 26 mmol/L Normal 21 - 31 mmol/L [facility] Creatinine [Mass/Vol] 0.9 mg/dL Normal 0.5 - 1.3 mg/dL [facility] Remisol GFR/1.73 sq M.predicted among blacks MDRD (S/P/Bld) [Vol rate/Area] mL/min/1.73 m2 Normal >=59mL/min/1. 73 m2 [facility] Chem S GFR/1.73 sq M.predicted among non-blacks MDRD (S/P/Bld) [Vol rate/Area] mL/min/1.73 m2 Normal >=59mL/min/1. 73 m2 [facility] Chem S Glucose [Mass/Vol] 92 mg/dL Normal 55 - 199 mg/dL [facility] Potassium [Moles/Vol] 3.9 mmol/L Normal 3.5 - 5.3 mmol/L [facility] Sodium [Moles/Vol] 134 mmol/L Low 135 - 145 mmol/L [facility] Urea nitrogen [Mass/Vol] 18 mg/dL Normal 5 - 21 mg/dL [facility] Urea nitrogen/Creatinine [Mass ratio] 20 mg/mg Normal 10 - 20 [facility] Remisol CHEMISTRYOrdered By: SYSTEM SYSTEM on 03-19-2022 Anion gap [Moles/Vol] 10 mmol/L Normal 6 - 16 mEq/L [facility] Remisol Calcium [Mass/Vol] 9.4 mg/dL Normal 8.9 - 11. 1 mg/dL [facility] Chloride [Moles/Vol] 97 mmol/L Low 101 - 1 11 mmol/L [facility] CO2 [Moles/Vol] 30 mmol/L Normal 21 - 31 mmol/L [facility] Creatinine [Mass/Vol] 0.9 mg/dL Normal 0.5 - 1.3 mg/dL [facility] GFR/1.73 sq M.predicted among blacks MDRD (S/P/Bld) [Vol rate/Area] mL/min/1.73 m2 Normal >=59mL/min/1. 73 m2 [facility] Chem S GFR/1.73 sq M.predicted among non-blacks MDRD (S/P/Bld) [Vol rate/Area] mL/min/1.73 m2 Normal >=59mL/min/1. 73 m2 [facility] Chem S Glucose [Mass/Vol] 113 mg/dL Normal 55 - 199 mg/dL [facility] Potassium [Moles/Vol] 4.0 mmol/L Normal 3.5 - 5.3 mmol/L [facility] Sodium [Moles/Vol] 133 mmol/L Low 135 - 145 mmol/L [facility] Urea nitrogen [Mass/Vol] 13 mg/dL Normal 5 - 21 mg/dL [facility] Urea nitrogen/Creatinine [Mass ratio] 14 mg/mg Normal 10 - 20 [facility] Remisol CHEMISTRYOrdered By: SYSTEM SYSTEM on 01-27-2022 Anion gap [Moles/Vol] 10 mmol/L Normal 6 - 16 mEq/L F [facility] Remisol Calcium [Mass/Vol] 9.4 mg/dL Normal 8.9 - 11. 1 mg/dL [facility] Remisol Chloride [Moles/Vol] 104 mmol/L Normal 101 - 1 11 mmol/L [facility]isol CO2 [Moles/Vol] 27 mmol/L Normal 21 - 31 mmol/L [facility] Creatinine [Mass/Vol] 0.9 mg/dL Normal 0.5 - 1.3 mg/dL [facility]isol GFR/1.73 sq M.predicted among blacks MDRD (S/P/Bld) [Vol rate/Area] mL/min/1.73 m2 Normal >=59mL/min/1. 73 m2 [facility] Chem S GFR/1.73 sq M.predicted among non-blacks MDRD (S/P/Bld) [Vol rate/Area] mL/min/1.73 m2 Normal >=59mL/min/1. 73 m2 [facility] Chem S Glucose [Mass/Vol] 102 mg/dL Normal 55 - 199 mg/dL [facility] Potassium [Moles/Vol] 4.1 mmol/L Normal 3.5 - 5.3 mmol/L [facility] Sodium [Moles/Vol] 137 mmol/L Normal 135 - 145 mmol/L [facility] Urea nitrogen [Mass/Vol] 18 mg/dL Normal 5 - 21 mg/dL [facility] Urea nitrogen/Creatinine [Mass ratio] 20 mg/mg Normal 10 - 20 [facility] Remisol CHEMISTRYOrdered By: SYSTEM SYSTEM on 11-18-2021 Prostate specific Ag [Mass/Vol] 0.8 ng/mL Normal 0.1 - 3.5 ng/mL [facility] Remisol Vital Signs Date Time Vital Sign Value Performing Clinician Facility 09-20-2023 09:10-0400 Blood Pressure Location Kasey Orzech [facility] 09-20-2023 09:10-0400 Diastolic blood pressure 80 mm[Hg] Kasey Orzech [facility] 09-20-2023 09:10-0400 Heart rate 84 /min Kasey Orzech [facility] 09-20-2023 09:10-0400 Respiratory rate 16 /min Kasey Orzech [facility] 09-20-2023 09:10-0400 Systolic blood pressure 138 mm[Hg] Kasey Orzech [facility] 08-08-2023 14:54-0400 Blood Pressure Location Mohamad Mouch[facility] 08-08-2023 14:54-0400 Diastolic blood pressure 81 mm[Hg] Mohamad Mouch[facility] 08-08-2023 14:54-0400 Heart rate 71 /min Mohamad Mouch[facility] 08-08-2023 14:54-0400 Respiratory rate 16 /min Mohamad Mouch[facility] 08-08-2023 14:54-0400 Systolic blood pressure 134 mm[Hg] Mohamad Mouch[facility] 03-29-2023 08:25-0400 Blood Pressure Location ISABEL CAIO [facility] 03-29-2023 08:25-0400 Diastolic blood pressure 78 mm[Hg] ISABEL CAIO [facility] 03-29-2023 08:25-0400 Heart rate 80 /min ISABEL CAIO [facility] 03-29-2023 08:25-0400 Respiratory rate 16 /min ISABEL CAIO [facility] 03-29-2023 08:25-0400 Systolic blood pressure 132 mm[Hg] ISABEL CAIO [facility] 09-28-2022 10:25-0400 Blood Pressure Location Bruce COOK [facility] 09-28-2022 10:25-0400 Diastolic blood pressure 95 mm[Hg] Bruce COOK [facility] 09-28-2022 10:25-0400 Heart rate 102 /min Bruce COOK [facility] 09-28-2022 10:25-0400 Systolic blood pressure 140 mm[Hg] Bruce COOK [facility] 09-08-2022 09:42-0400 Blood Pressure Location Bruce COOK [facility] 09-08-2022 09:42-0400 Diastolic blood pressure 85 mm[Hg] Bruce COOK [facility] 09-08-2022 09:42-0400 Systolic blood pressure 140 mm[Hg] Bruce COOK [facility] 06-16-2022 08:58-0500 Blood Pressure Location Bruce NUGENT [facility] 06-16-2022 08:58-0500 Diastolic blood pressure 87 mm[Hg] Bruce COOK [facility] 06-16-2022 08:58-0500 Heart rate 89 /min Bruce COOK [facility] 06-16-2022 08:58-0500 Respiratory rate 16 /min Bruce NUGENT [facility] 06-16-2022 08:58-0500 Systolic blood pressure 146 mm[Hg] Burce COOK [facility] 05-20-2022 08:54-0500 Blood Pressure Location eGmma Garner [facility] 05-20-2022 08:54-0500 Diastolic blood pressure 82 mm[Hg] Gemma Garner [facility] 05-20-2022 08:54-0500 Heart rate 96 /min Gemma Garner [facility] 05-20-2022 08:54-0500 Systolic blood pressure 140 mm[Hg] Gemma Garner [facility] 05-07-2022 15:00-0500 Diastolic blood pressure 78 mm[Hg] Butcher SALAM [facility] 05-07-2022 15:00-0500 Heart rate 65 /min Butcher SALAM [facility] 05-07-2022 15:00-0500 Respiratory rate 23 /min Butcher SALAM [facility] 05-07-2022 15:00-0500 Systolic blood pressure 115 mm[Hg] Butcher SALAM [facility] 05-07-2022 14:45-0500 Diastolic blood pressure 70 mm[Hg] Butcher SALAM [facility] 05-07-2022 14:45-0500 Heart rate 67 /min Butcher SALAM [facility] 05-07-2022 14:45-0500 Respiratory rate 13 /min Butcher SALAM [facility] 05-07-2022 14:45-0500 SaO2% (BldA) [Mass fraction] 98 % Butcher SALAM [facility] 05-07-2022 14:45-0500 Systolic blood pressure 109 mm[Hg] Butcher SALAM [facility] 05-07-2022 14:30-0500 Diastolic blood pressure 80 mm[Hg] Butcher SALAM [facility] 05-07-2022 14:30-0500 Heart rate 71 /min Butcher SALAM [facility] 05-07-2022 14:30-0500 Respiratory rate 22 /min Butcher SALAM [facility] 05-07-2022 14:30-0500 SaO2% (BldA) [Mass fraction] 97 % Butcher SALAM [facility] 05-07-2022 14:30-0500 Systolic blood pressure 120 mm[Hg] Butcher SALAM [facility] 05-07-2022 14:20-0500 Body temperature 97.88 [degF] Butcher SALAM [facility] 05-07-2022 14:18-0500 Body temperature 97.7 [degF] Butcher SALAM [facility] 05-07-2022 13:35-0500 Blood Pressure Location Butcher SALAM [facility] 05-07-2022 13:35-0500 Body temperature 97.7 [degF] Butcher SALAM [facility] 04-20-2022 10:28-0500 Diastolic blood pressure 84 mm[Hg] Nubia Alix [facility] 04-20-2022 10:28-0500 Mean blood pressure 101 mm[Hg] Nubia [facility] 04-20-2022 10:28-0500 Systolic blood pressure 136 mm[Hg] Nubia [facility] 04-20-2022 10:25-0500 Blood Pressure Location Nubiaeda BriceñoAlix [facility] 04-20-2022 10:25-0500 Body temperature 98.06 [degF] Nubia [facility] 04-20-2022 10:25-0500 Diastolic blood pressure 91 mm[Hg] Nubia [facility] 04-20-2022 10:25-0500 Heart rate 85 /min Nubia [facility] 04-20-2022 10:25-0500 Systolic blood pressure 144 mm[Hg] Nubia [facility] 03-25-2022 08:06-0400 Blood Pressure Location Lannette Patsy [facility] 03-25-2022 08:06-0400 Diastolic blood pressure 95 mm[Hg] Gemma Patsy [facility] 03-25-2022 08:06-0400 Heart rate 89 /min Gemma Carpios [facility] 03-25-2022 08:06-0400 Systolic blood pressure 141 mm[Hg] Gemma Carpios [facility] 02-25-2022 08:10-0400 Blood Pressure Location Gemma Cuney [facility] 02-25-2022 08:10-0400 Diastolic blood pressure 92 mm[Hg] Gemma Garner [facility] 02-25-2022 08:10-0400 Heart rate 81 /min Gemma Carpios [facility] 02-25-2022 08:10-0400 Systolic blood pressure 118 mm[Hg] Gemma Carpios [facility] 09-02-2021 09:13-0400 Blood Pressure Location Bruce NUGENT [facility] 09-02-2021 09:13-0400 Diastolic blood pressure 90 mm[Hg] Bruce NUGENT [facility] 09-02-2021 09:13-0400 Heart rate 112 /min Bruce NUGENT [facility] 09-02-2021 09:13-0400 Respiratory rate 16 /min Bruce NUGENT [facility] 09-02-2021 09:13-0400 Systolic blood pressure 138 mm[Hg] Bruce NUGENT [facility] [place] Encounters Encounter Date Encounter Type Care Provider Facility Start: 09-20-2023 End: 09-21-2023 ambulatory Kasey X Orzech Facility:[facility] Start: 09-20-2023 End: 09-20-2023 Lab Drop off Kasey X Orzech [facility] Start: 09-20-2023 End: 09-20-2023 Patient encounter procedure Kasey X Orzech [facility] [place] Start: 08-23-2023 End: 08-24-2023 ambulatory PA-C ISABEL KEARNEY Facility:[facility] [place] Start: 08-23-2023 End: 08-23-2023 Patient encounter procedure [facility] KEAR[facility] Start: 08-22-2023 Telephone encounter Cheryl Sy APRN.REPAIR SUPERVISOR Work Phone: Colorectal Surgery Start: 08-19-2023 Telephone encounter Cheryl Sy APRN.REPAIR SUPERVISOR Work Phone: Colorectal Surgery Comment on above: Received Outside [facility] Records Start: 08-08-2023 End: 08-09-2023 ambulatory Yoel Cabrera Facility:[facility] Start: 08-08-2023 End: 08-08-2023 Patient encounter procedure Yoel Cabrera [facility] Start: 05-17-2023 End: 05-18-2023 ambulatory PA-C ISABEL KEARNEY Facility:[facility] [place] Start: 05-17-2023 End: 05-17-2023 Patient encounter procedure ISABEL Jennifer RAHMANRY [facility] Start: 04-27-2023 End: 04-28-2023 ambulatory Luis MARTINEZ Facility:[facility] [place] Start: 04-27-2023 End: 04-27-2023 Patient encounter procedure Luis MARTINEZ [facility] Start: 04-26-2023 End: 04-27-2023 ambulatory PA-C ISABEL E CAIO Facility:[facility] [place] Start: 04-26-2023 End: 04-26-2023 Patient encounter procedure ISABEL Jennifer RAHMANRY [facility] Start: 03-29-2023 End: 03-30-2023 ambulatory PA-C ISABEL E CAIO Facility:[facility] [place] Start: 03-29-2023 End: 03-29-2023 Patient encounter procedure ISABEL Jennifer RAHMANRY [facility] Start: 03-03-2023 End: 03-04-2023 ambulatory PA-C ISABEL E CAIO Facility:[facility] [place] Start: 01-12-2023 End: 01-13-2023 ambulatory PA-C ISABEL E CAIO Facility:[facility] [place] Start: 01-12-2023 End: 01-12-2023 Patient encounter procedure ISABEL Jennifer CAIO [facility] Start: 12-13-2022 End: 12-14-2022 ambulatory Bruce NUGENT Facility:[facility] [place] Start: 12-13-2022 End: 12-13-2022 Patient encounter procedure Bruce NUGENT [facility] [place] Start: 11-15-2022 End: 11-16-2022 ambulatory Bruce NUGENT Facility:[facility] [place] Start: 11-15-2022 End: 11-15-2022 Patient encounter procedure Bruce NUGENT [facility] [place] Start: 10-25-2022 End: 10-26-[address] WESTON Mckeon Facility: Start: 10-13-2022 End: 10-14-2022 ambulatory Bruce NUGENT Facility:[facility] [place] Start: 10-05-2022 ambulatory Bruce NUGENT Facility :[facility] [place] Start: 09-28-2022 End: 09-29-2022 ambulatory Bruce NUGENT Facility:[facility] [place] Start: 09-28-2022 End: 09-28-2022 Patient encounter procedure Bruce NUGENT [facility] [place] Start: 09-13-2022 End: 09-13-2022 Patient encounter procedure Marli Gaffney [facility] Start: 09-08-2022 End: 09-08-2022 Patient encounter procedure Bruce NUGENT [facility] [place] Start: 08-16-2022 End: 08-16-2022 Patient encounter procedure Marli Gaffney [facility] Start: 07-21-2022 End: 07-22-[address] DOCTOR KARIMI Facility:[facility] Start: 07-14-2022 End: 07-14-2022 Patient encounter procedure Bruce NUGENT [facility] Start: 06-16-2022 End: 06-16-2022 Lab Drop off Bruce NUGENT [facility] Start: 06-16-2022 End: 06-16-2022 Patient encounter procedure Bruce Mina RAFFI [facility] Start: 06-09-2022 End: 06-09-2022 Patient encounter procedure Gemma Garner [facility] Start: 05-20-2022 End: 05-20-2022 Patient encounter procedure Gemma Garner [facility] Start: 05-07-2022 End: 05-07-2022 Patient encounter procedure Guadalupe BRITTON [facility] Start: 04-20-2022 End: 04-20-2022 Patient encounter procedure Nubia [facility] Start: 03-25-2022 End: 03-25-2022 Patient encounter procedure Gemma Garner [facility] Start: 03-19-2022 End: 03-19-2022 Patient encounter procedure Gemma Garner [facility] Start: 02-25-2022 End: 02-25-2022 Patient encounter procedure Gemma Garner [facility] Start: 01-27-2022 End: 01-27-2022 Patient encounter procedure Gemma Garner [facility] Start: 01-11-2022 End: 01-11-2022 Patient encounter procedure Gemma Garner [facility] Start: 12-23-2021 End: 12-23-2021 Patient encounter procedure Bruce NUGENT [facility] Start: 11-25-2021 End: 11-25-2021 Patient encounter procedure Bruce NUGENT [facility] Start: 11-18-2021 End: 11-18-2021 Patient encounter procedure Bruce NUGENT [facility] Start: 10-28-2021 End: 10-28-2021 Patient encounter procedure Bruce NUGENT [facility] Start: 09-30-2021 End: 09-30-2021 Patient encounter procedure Bruce NUGENT [facility] Start: 09-02-2021 End: 09-02-2021 Patient encounter procedure Bruce NUGENT [facility] Start: 04-15-2017 Ambulatory ARMANDO CORONADO Facility: 8 Start: 03-18-2017 Ambulatory ARMANDO CORONADO Facility: 8 Procedures Date Procedure Procedure Detail Performing Clinician Start: 07-23-2020 Cystoscopy Bruce NUGENT Start: 06-12-2020 Cystoscopic removal of ureteric stent Bruce NUGENT Start: 05-22-2020 Change of urethral catheter Bruce NUGENT Start: 05-22-2020 Extracorporeal shockwave lithotripsy of calculus of kidney Bruce NUGENT Start: 04-13-2020 Cystoscopy Bruce NUGENT Comment on above: cystoscopy,right retrograde pyelogram, r ight double Jstent cystoscopy,right ret rograde pyelogram, right double Jstent Start: 06-26-2019 Cystoscopy Bruce NUGENT Start: 06-26-2019 Transurethral prostatectomy Bruce NUGENT Start: 03-25-2017 Pilar cyst of scalp (disorder) Bruce Zaragoza PadminiRG 2 inq. hernia repairs Hal NUGENT Cholecystectomy Bruce NUGENT Colonoscopy Nubia Thomson Esophagogastroduoden oscopy gastric outlet reduction Nubia Thomson Plan of Treatment Date Care Activity Detail Author Start: 11-01-2023 ambulatory Ambulatory Facility:[facility] Immunizations Immunization Date Immunization Notes Care Provider [facility] 09-16-2021 zoster vaccine recombinant Nubia Thomson [facility] 05-03-2021 influenza virus vaccine, unspecified formulation Nubia Thomson [facility] 05-03-2021 SARS-CoV-2 (COVID-19 ) mRNA BNT-162s7 vax Nubia Briceñometz [facility] 03-08-2021 zoster vaccine recombinant Nubia Briceñometz [facility] 09-09-2020 SARS-CoV-2 (COVID-19 ) mRNA BNT-162b2 vax Bruce NUGENT [facility] 08-20-2020 SARS-CoV-2 (COVID-19 ) mRNA BNT-162b2 vax Bruce NUGENT [facility] 05-27-2017 influenza virus vaccine, unspecified formulation Nubia Thomson [facility] 03-17-2016 influenza virus vaccine, unspecified formulation Nubia Thomson [facility] 03-25-2014 influenza, seasonal, injectable Bruce NUGENT [facility] 11-24-2010 tetanus toxoid, reduced diphtheria toxoid, and acellular pertussis vaccine, adsorbed Bruce NUGENT [facility] NEGATED: Highlighted row has not occurred!04-20-2022 influenza virus vaccine, unspecified formulation Nubia Thomson [facility] Payers Date Payer Category Payer Unknown [id number] 1960 Unknown [id number] 2.16.84 [id number] 1960 Unknown [id number] 2.16.84 [id number] 1960 Unknown [id number] 2.16.8 40.1.033866.3.579.2.727 1962 Unknown [id number] 2.16.8 40.1.605715.3.579.2.727 1962 Unknown [id number] 2.16.8 40.1.833481.3.579.2.727 1962 Unknown [id number] 2.16.8 40.1.439987.3.579.2. 1962 Unknown [id number] 2.16.8 40.1.795019.3.579.2. 1962 Unknown [id number] 2.16.8 40.1.669028.3.579.2. 1962 Unknown [id number] 2.16.8 40.1.694895.3.579.2. 1962 Unknown [id number] 2.16.8 40.1.154974.3.579.2 1962 Unknown [id number] 2.16.8 40.1.578323.3.579.2 1962 Unknown [id number] 2.16.8 40.1.679627.3.579.2 1962 Unknown [id number] 2.16.8 40.1.191636.3.579.2 1962 Unknown [id number] 2.16.8 40.1.095112.3.579.2 1962 Unknown [id number] 2.16.8 40.1.440807.3.579.2 1962 Unknown [id number] 2.16.8 40.1.707509.3.579.2 1962 Unknown [id number] 2.16.8 40.1.974146.3.579.2 1962 Unknown [id number] 2.16.8 40.1.703130.3.579.2. 1962 Unknown [id number] 2.16.8 40.1.531762.3.579.2.727 1957 Medicare [id number] Unknown [id number] Social History Date Type Detail Facility Start: 08-05-2021 End: 09-20-2023 Tobacco smoking status Never smoked tobacco (finding) [facility] Comment on above: denies Tobacco smoking status Never [facility] Comment on above: denies Sex Assigned At Male [facility] Tobacco smoking status NHIS Tobacco smoking consumption unknown [facility] Start: 1960 Sex Assigned At Not on file C [facility] Medical Equipment Procedure Code Equipment Code Equipment Origin al Text Equipment Identifier Dates [id number] FDA Start: 04-13-2020 Functional Status Date Assessment Result Facility 09-20-2023 Functional Status N/A [facility] 08-08-2023 Functional Status N/A [facility] 03-29-2023 Functional Status N/A [facility] 12-13-2022 Functional Status N/A [facility] 11-15-2022 Functional Status N/A [facility] 09-28-2022 Functional Status N/A [facility] 09-08-2022 Functional Status N/A [facility] 07-14-2022 Functional Status N/A [facility] 06-16-2022 Functional Status N/A [facility] 05-20-2022 Functional Status N/A [facility] 05-07-2022 Functional Status N/A [facility] 04-20-2022 Functional Status N/A [facility] 03-25-2022 Functional Status N/A [facility] 02-25-2022 Functional Status N/A [facility] 01-11-2022 N/A [facility] 12-23-2021 Functional Status N/A [facility] 11-25-2021 Functional Status N/A [facility] Clinical Notes 09-02-2021 to 09-20-2023 Telephone Encounter - Edgardo Desai Liudmila - 08/22/2023 10:26 AM EDTTelephone Encounter - Neli Encarnacion - 08/19/2023 2:03 PM EDT Note Date & Type Note Facility 09-20-2023 Hospital Discharg e instructions Patient Education 09/20/2023 10:04:06 Prostatitis Prostatitis Prostatitis is swelling or inflammation of the prostate gland, also called the prostate. This gland is about 1.5 inches wide and 1 inch high, and it is involved in making semen. The prostate is located below a man's bladder, in front of the rectum. There are four types of prostatitis: Chronic prostatitis (CP), also called chronic pelvic pain syndrome (CPPS). This is the most common type of prostatitis. It is associated with increased muscle tone in the area between the hip bones (pelvic area), around the prostate. This type is also known as a pelvic floor disorder. Chronic bacterial prostatitis. This type usually results from an acute bacterial infection in the prostate gland that keeps coming back or has not been treated properly. The symptoms are less severe than those caused by acute bacterial prostatitis, which lasts a shorter time. Asymptomatic inflammatory prostatitis. This type does not have symptoms and does not need treatment. This is diagnosed when tests are done for other disorders of the urinary tract or reproductive tract. Acute bacterial prostatitis. This type starts quickly and results from an acute bacterial infection in the prostate gland. It is usually associated with a bladder infection, high fever, and chills. This is the least common type of prostatitis. What are the causes? Bacterial prostatitis is caused by an infection from bacteria. Chronic nonbacterial prostatitis may be caused by: Factors related to the nervous system. This system includes thebrain, spinal cord, and nerves. An autoimmune response. This happens when the body's disease-fighting system attacks healthy tissue in the body by mistake. Psychological factors. These have to do with how the mind works. The causes of the other types of prostatitis are usually not known. What are the signs or symptoms? Symptoms of this condition depend on the type of prostatitis you have. Acute bacterial prostatitis Symptoms may include: Pain or burning during urination. Frequent and sudden urges to urinate. Trouble starting to urinate. Fever. Chills. Pain in your muscles or joints, lower back, or lower abdomen. Other types of prostatitis Symptoms may include: Sudden urges to urinate, or urinating often. Trouble starting to urinate. Weak urine stream. Dribbling after urination. Discharge coming from the penis. Pain in the testicles, the penis, or the tip of the penis. Pain in the area in front of the rectum and below the scrotum (perineum). Pain when ejaculating. How is this diagnosed? This condition may be diagnosed based on: A physical and medical exam. A digital rectal exam. For this, the health care provider may use a finger to feel the prostate. A urine test to check for bacteria. A semen sample or blood tests. Ultrasound. Urodynamic tests to check how your body handles urine. Cystoscopy to look inside your bladder or inside the part of your body that drains urine from the bladder (urethra). How is this treated? Treatment for this condition depends on the type of prostatitis. Treatment may involve: Medicines to relieve pain or inflammation, or to help relax your muscles. Physical therapy. Heat therapy. Biofeedback. These techniques help you control certain body functions. Relaxation exercises. Antibiotic medicine, if your condition is caused by bacteria. Sitz baths. These warm water baths help to relax your pelvic floor muscles, which helps to relieve pressure on the prostate. Follow these instructions at home: Medicines Take rxmm-hfv-qzzyzcj and prescription medicines only as told by your health care provider. If you were prescribed an antibiotic medicine, take it as told by your health care provider. Do not stop using the antibiotic even if you start to feel better. Managing pain and swelling Take sitz baths as directed by your health care provider. For a sitz bath, sit in warm water that is deep enough to cover your hips and buttocks. If directed, apply heat to the affected area as often as told by your health care provider. Use the heat source that your health care provider recommends, such as a moist heat pack or a heating pad. ?Place a towel between your skin and the heat source. ?Leave the heat on for 20 30 minutes. ?Remove the heat if your skin turns bright red. This is especially important if you are unable to feel pain, heat, or cold. You may have a greater risk of getting burned. General instructions Do exercises as told by your health care provider, if you were prescribed physical therapy, biofeedback, or relaxation exercises. Keep all follow-up visits as told by your health care provider. This is important. Where to find more information National [place] of Diabetes and Digestive and Kidney Diseases: https://www.niddk.nih.gov Contact a health care provider if: Your symptoms get worse. You have a fever. Get help right away if: You have chills. You feel light-headed or feel like you may faint. You cannot urinate. You have blood or blood clots in your urine. Summary Prostatitis is swelling or inflammation of the prostate gland. Treatment for this condition depends on the type of prostatitis. Take rbdf-ved-ftrgjcp and prescription medicines only as told by your health care provider. Get help right away of you have chills, feel light-headed, feel like you may faint, cannot urinate, or have blood or blood clots in your urine. This information is not intended to replace advice given to you by your health care provider. Make sure you discuss any questions you have with your health care provider. Document Revised: 06/20/2020 Document Reviewed: 06/20/2020 [employer] Patient Education 2022 [employer]. Follow Up Care 08/23/2023 12:53:15 With:SURYA Orozco APRN, Kasey Arenas, JET, URL Address: When: Unknown Comments:5 to 6 weeks for recheck [facility] 08-22-2023 Miscellaneous Notes Left detailed VM offering scheduling assistance for Manometry with consultation with Provider Cheryl Sy CNP. Dr. Cabrera referring. Thank you. Liudmila Desai documented in this encounter [facility] 08-19-2023 Miscellaneous Notes Received referral from Keyur Anguiano and it was scanned in to chart. This is a new pt and requires continue patient registration when they call back. There is a referral for manometry and I LVM to have them give us a call back to schedule. I tried calling Keyur Anguiano to verify contact information of pt. Called on 08/10 and 08/18. documented in this encounter [facility] 03-29-2023 Hospital Discharg e instructions Patient Education 03/29/2023 09:10:58 Suprapubic Catheter Replacement Suprapubic Catheter Replacement Suprapubic catheter replacement is a procedure to remove an old catheter and insert a new, clean catheter. A suprapubic catheter is a rubber tube that drains urine from the bladder into a collection bag outside the body. The catheter is inserted into the bladder through a small opening in the lower abdomen, near the center of the body, above the pubic bone (suprapubicarea). There is a tiny balloon filled with germ-free (sterile) water on the end of the catheter that is in the bladder. The balloon helps to keep the catheter in place. If you need to wear a catheter for a long period of time, you may be instructed to replace the catheter yourself. Usually, suprapubic catheters need to be replaced every 4 6 weeks, or as often as told by your health care provider. What are the risks? Generally, this is a safe procedure. However, problems may occur, including failure to get the catheter into the bladder. What happens before the procedure? You may have an exam or testing, including a blood or urine sample. Ask your health care provider what steps will be taken to help prevent infection. What happens during the procedure? You will lie on your back. The water from the balloon will be removed using a syringe. The catheter will be slowly removed. Lubricant will be applied to the end of the new catheter that will go into your bladder. The new catheter will be inserted through the opening in your abdomen. Your health care provider will slide the catheter into your bladder. Your health care provider will wait for some urine to start flowing through the catheter. When this happens, a syringe will be used to fill the balloon with sterile water. A collection bag will be attached to the end of the catheter. The procedure may vary among health care providers and hospitals. What can I expect after procedure? After the procedure, it is common to have: Some discomfort around the opening in your abdomen. Follow these instructions at home: Caring for the skin around the catheter Use a clean washcloth and soapy water to clean the skin around your catheter every day. Pat the area dry with a clean towel. Do not pull on the catheter. Do not use ointment or lotion on this area unless told by your health care provider. Check the skin around the catheter every day for signs of infection. Check for: ?Redness, swelling, or pain. ?Fluid or blood. ?Warmth. ?Pus or a bad smell. Caring for the catheter Clean the catheter with soap and water as often as told by your health care provider. Always make sure there are no twists or curls (kinks) in the catheter. As soon as you are able to move, you may use a leg bag to collect the urine. ?Make sure that the tubing is straight and without kinks. ?Wrap an jeff bandage gently over the tubing and around your leg to minimize the risk of the bag getting pulled out. Emptying the collection bag Empty the large collection bag every 8 hours. Empty the small collection bag when it is about ? full. To empty your large or small collection bag, take the following steps: Always keep the bag below the level of the catheter. This keeps urine from flowing backward into the catheter. Hold the bag over the toilet or another container. Turn the valve (spigot) at the bottom of the bag to empty the urine. ?Do not touch the opening of the spigot. ?Do not let the opening touch the toilet or container. Close the spigot tightly when the bag is empty. Cleaning the collection bag Wash your hands with soap and water. If soap and water are not available, use hand motorcycle engine assembler. Disconnect the bag from the catheter and immediately attach a new bag to the catheter. Empty the used bag completely. Clean the used bag according to the integration engineer's instructions, or as told by your health care provider. Let the bag dry completely, and put it in a clean plastic bag before storing it. General instructions Always wash your hands before and after caring for your catheter and collection bag. Use soap and water. If soap and water are not available, use hand motorcycle engine assembler. Always make sure there are no leaks in the catheter or collection bag. Drink enough fluid to keep your urine pale yellow. If you were prescribed an antibiotic medicine, take it as told by your health care provider. Do not stop taking the antibiotic even if you start to feel better. Do not take baths, swim, or use a hot tub. Keep all follow-up visits as told by your health care provider. This is important. Contact a health care provider if: You leak urine. You have redness, swelling, or pain around your catheter opening. You have fluid or blood coming from your catheter opening. Your catheter opening feels warm to the touch. You have pus or a bad smell coming from your catheter opening. You have a fever or chills. Your urine flow slows down. Your urine becomes cloudy or smelly. Get help right away if: Your catheter comes out. You feel nauseous. You have back pain. You have difficulty changing your catheter. You have blood in your urine. You have no urine flow for 1 hour. Summary Suprapubic catheter replacement is a procedure to remove an old catheter and insert a new, clean catheter. Make sure that you understand how to care for your catheter, your collection bag, and the opening in your abdomen. Always wash your hands before and after caring for your catheter and collection bag. Contact a health care provider if you leak urine or have a fever or any signs of infection around the catheter opening, or if your urine becomes cloudy or smelly. Get help right away if your catheter comes out or you have nausea, back pain, blood in your urine, no urine flow for 1 hour, or difficulty changing your catheter. This information is not intended to replace advice given to you by your health care provider. Make sure you discuss any questions you have with your health care provider. Document Revised: 03/23/2022 Document Reviewed: 03/23/2022 [employer] Patient Education 2022 [employer]. Follow Up Care 01/24/2023 13:27:19 With:CAIO MAJOR, ISABEL Rodriguez, URL Address: [address] [place] [address] [phone] When: Unknown Comments:3-4wk for SP tube change [facility] 12-13-2022 Hospital Discharg e instructions Patient Education 12/13/2022 11:58:37 Overactive Bladder, Adult Overactive Bladder, Adult Overactive bladder is a condition in which a person has a sudden and frequent need to urinate. A person might also leak urine if he or she cannot get to the bathroom fast enough (urinary incontinence). Sometimes, symptoms can interfere with work or social activities. What are the causes? Overactive bladder is associated with poor nerve signals between your bladder and your brain. Your bladder may get the signal to empty before it is full. You may also have very sensitive muscles that make your bladder squeeze too soon. This condition may also be caused by other factors, such as: Medical conditions: ?Urinary tract infection. ?Infection of nearby tissues. ?Prostate enlargement. ?Bladder stones, inflammation, or tumors. ?Diabetes. ?Muscle or nerve weakness, especially from these conditions: ?A spinal cord injury. ?Stroke. ?Multiple sclerosis. ?Parkinson's disease. Other causes: ?Surgery on the uterus or urethra. ?Drinking too much caffeine or alcohol. ?Certain medicines, especially those that eliminate extra fluid in the body (diuretics). ?Constipation. What increases the risk? You may be at greater risk for overactive bladder if you: Are an older adult. Smoke. Are going through menopause. Have prostate problems. Have a neurological disease, such as stroke, dementia, Parkinson's disease, or multiple sclerosis (MS). Eat or drink alcohol, spicy food, caffeine, and other things that irritate the bladder. Are overweight or obese. What are the signs or symptoms? Symptoms of this condition include a sudden, strong urge to urinate. Other symptoms include: Leaking urine. Urinating 8 or more times a day. Waking up to urinate 2 or more times overnight. How is this diagnosed? This condition may be diagnosed based on: Your symptoms and medical history. A physical exam. Blood or urine tests to check for possible causes, such as infection. You may also need to see a health care provider who specializes in urinary tract problems. This is called a urologist. How is this treated? Treatment for overactive bladder depends on the cause of your condition and whether it is mild or severe. Treatment may include: Bladder training, such as: ?Learning to control the urge to urinate by following a schedule to urinate at regular intervals. ?Doing Kegel exercises to strengthen the pelvic floor muscles that support your bladder. Special devices, such as: ?Biofeedback. This uses sensors to help you become aware of your body's signals. ?Electrical stimulation. This uses electrodes placed inside the body (implanted) or outside the body. These electrodes send gentle pulses of electricity to strengthen the nerves or muscles that control the bladder. ?Women may use a plastic device, called a pessary, that fits into the vagina and supports the bladder. Medicines, such as: ?Antibiotics to treat bladder infection. ?Antispasmodics to stop the bladder from releasing urine at the wrong time. ?Tricyclic antidepressants to relax bladder muscles. ?Injections of botulinum toxin type A directly into the bladder tissue to relax bladder muscles. Surgery, such as: ?A device may be implanted to help manage the nerve signals that control urination. ?An electrode may be implanted to stimulate electrical signals in the bladder. ?A procedure may be done to change the shape of the bladder. This is done only in very severe cases. Follow these instructions at home: Eating and drinking Make diet or lifestyle changes recommended by your health care provider. These may include: ?Drinking fluids throughout the day and not only with meals. ?Cutting down on caffeine or alcohol. ?Eating a healthy and balanced diet to prevent constipation. This may include: ?Choosing foods that are high in fiber, such as beans, whole grains, and fresh fruits and vegetables. ?Limiting foods that are high in fat and processed sugars, such as fried and sweet foods. Lifestyle Lose weight if needed. Do not use any products that contain nicotine or tobacco. These include cigarettes, chewing tobacco, and vaping devices, such as e-cigarettes. If you need help quitting, ask your health care provider. General instructions Take kxms-hkc-nnhjtby and prescription medicines only as told by your health care provider. If you were prescribed an antibiotic medicine, take it as told by your health care provider. Do not stop taking the antibiotic even if you start to feel better. Use any implants or pessary as told by your health care provider. If needed, wear pads to absorb urine leakage. Keep a log to track how much and when you drink, and when you need to urinate. This will help your health care provider monitor your condition. Keep all follow-up visits. This is important. Contact a health care provider if: You have a fever or chills. Your symptoms do not get better with treatment. Your pain and discomfort get worse. You have more frequent urges to urinate. Get help right away if: You are not able to control your bladder. Summary Overactive bladder refers to a condition in which a person has a sudden and frequent need to urinate. Several conditions may lead to an overactive bladder. Treatment for overactive bladder depends on the cause and severity of your condition. Making lifestyle changes, doing Kegel exercises, keeping a log, and taking medicines can help with this condition. This information is not intended to replace advice given to you by your health care provider. Make sure you discuss any questions you have with your health care provider. Document Revised: 02/02/2021 Document Reviewed: 02/02/2021 [employer] Patient Education 2022 [employer]ab. Follow Up Care 11/15/2022 10:25:35 With:RAFFI ZHENG, Bruce Mina, AARON Address: [address] [place] [address]- When:Within 4 Week(s) Comments:S/P Catheter Change [facility] 11-15-2022 Hospital Discharg e instructions Patient Education 11/15/2022 10:20:35 Indwelling Urinary Catheter Care, Adult Indwelling Urinary Catheter Care, Adult An indwelling urinary catheter is a thin, flexible tube that is placed into the bladder to help drain urine out of the body. The catheter is inserted into the urethra. The urethra is the part of the body that drains urine from the bladder. Urine drains from the catheter into a drainage bag outside of the body. Taking good care of your catheter will keep it working properly and help to prevent problems from developing. What are the risks? Bacteria may get into your bladder and cause a urinary tract infection. Urine flow can become blocked. This can happen if the catheter is not working correctly, or if you have sediment or a blood clot in your bladder or catheter. Tissue near the catheter may become irritated and may bleed. How to wear your catheter and your drainage bag Supplies needed Adhesive tape or a leg strap. Alcohol wipe or soap and water (if you use tape). A clean towel (if you use tape). Overnight drainage bag. Smaller drainage bag (leg bag). Wearing your catheter and bag Use adhesive tape or a leg strap to attach your catheter to your leg. Make sure the catheter is not pulled tight. If a leg strap gets wet, replace it with a dry one. If you use adhesive tape: 1.Use an alcohol wipe or soap and water to wash off any stickiness on your skin where you had tape before. 2.Use a clean towel to pat-dry the area. 3.Apply the new tape. You should have received a large overnight drainage bag and a smaller leg bag that fits underneath clothing. You may wear the overnight bag at any time, but you should not wear the leg bag at night. Make sure the overnight drainage bag is always lower than the level of your bladder, but do not let it touch the floor. Before you go to sleep, hang the bag inside a wastebasket that is covered by a clean plastic bag. Secure the leg bag according to integration engineer's instructions. This may be above or below the knee, depending on the length of the tubing. Make sure that: ?The leg bag is below the bladder. ?The tubing does not have loops or too much tension. How to care for the skin around the catheter Supplies needed A clean washcloth. Water and mild soap. A clean towel. Caring for your skin and catheter Every day, use a clean washcloth and soapy water to clean the skin around your catheter. 1.Wash your hands with soap and water. 2.Wet a washcloth in warm water and mild soap. 3.Clean the skin around your urethra. ?If you are female: ?Use one hand to gently spread the folds of skin around your vagina (labia). ?With the washcloth in your other hand, wipe the inner side of your labia on each side. Do this in a frqey-uu-kozd direction. ?If you are male: ?Use one hand to pull back any skin that covers the end of your penis (foreskin). ?With the washcloth in your other hand, wipe your penis in small circles. Start wiping at the tip of your penis, then move outward from the catheter. ?Move the foreskin back in place, if needed. 4.With your free hand, hold the catheter close to where it enters your body. Keep holding the catheter during cleaning so it does not get pulled out. 5.Use your other hand to clean the catheter with the washcloth. ?Only wipe downward on the catheter, toward the bag. ?Do not wipe upward toward your body, because that may push bacteria into your urethra and cause infection. 6.Use a clean towel to pat-dry the catheter and the skin around it. Make sure to wipe off all soap. 7.Wash your hands with soap and water. Shower every day. Do not take baths. Do not use cream, ointment, or lotion on the area where the catheter enters your body, unless your health care provider tells you to do that. Do not use powders, sprays, or lotions on your genital area. Check your skin around the catheter every day for signs of infection. Check for: ?Redness, swelling, or pain. ?Fluid or blood. ?Warmth. ?Pus or a bad smell. How to empty the drainage bag Supplies needed Rubbing alcohol. Gauze pad or cotton ball. Adhesive tape or a leg strap. Emptying the bag Empty your drainage bag (your overnight drainage bag or your leg bag) when it is ? full, or at least 2 3 times a day. Clean the drainage bag according to the integration engineer's instructions or as told by your health care provider. 1.Wash your hands with soap and water. 2.Detach the drainage bag from your leg. 3.Hold the drainage bag over the toilet or a clean container. Make sure the drainage bag is lower than your hips and bladder. This stops urine from going back into the tubing and into your bladder. 4.Open the pour spout at the bottom of the bag. 5.Empty the urine into the toilet or container. Do not let the pour spout touch any surface. This precaution is important to prevent bacteria from getting in the bag and causing infection. 6.Apply rubbing alcohol to a gauze pad or cotton ball. 7.Use the gauze pad or cotton ball to clean the pour spout. 8.Close the pour spout. 9.Attach the bag to your leg with adhesive tape or a leg strap. 10.Wash your hands with soap and water. How to change the drainage bag Supplies needed: Alcohol wipes. A clean drainage bag. Adhesive tape or a leg strap. Changing the bag Replace your drainage bag with a clean bag if it leaks, starts to smell bad, or looks dirty. 1.Wash your hands with soap and water. 2.Detach the dirty drainage bag from your leg. 3.Pinch the catheter with your fingers so that urine does not spill out. 4.Disconnect the catheter tube from the drainage tube at the connection valve. Do not let the tubes touch any surface. 5.Clean the end of the catheter tube with an alcohol wipe. Use a different alcohol wipe to clean the end of the drainage tube. 6.Connect the catheter tube to the drainage tube of the clean bag. 7.Attach the clean bag to your leg with adhesive tape or a leg strap. Avoid attaching the new bag too tightly. 8.Wash your hands with soap and water. General instructions Never pull on your catheter or try to remove it. Pulling can damage your internal tissues. Always wash your hands before and after you handle your catheter or drainage bag. Use a mild, fragrance-free soap. If soap and water are not available, use hand motorcycle engine assembler. Always make sure there are no twists, bends, or kinks in the catheter tube. Always make sure there are no leaks in the catheter or drainage bag. Drink enough fluid to keep your urine pale yellow. Do not take baths, swim, or use a hot tub. If you are female, wipe from front to back after having a bowel movement. Contact a health care provider if: Your catheter gets clogged. Your catheter starts to leak. You have signs of infection at the catheter site, such as: ?Redness, swelling, or pain where the catheter enters your body. ?Fluid, blood, pus, or a bad smell coming from the area where the catheter enters your body. ?The area where the catheter enters your body feels warm to the touch. You have signs of a urinary tract infection, such as: ?Fever or chills. ?Urine smells unusually bad. ?Cloudy urine. ?Pain in your abdomen, legs, lower back, or bladder. ?Nausea or vomiting. Get help right away if: You see blood in the catheter. Your urine is pink or red. Your bladder feels full. Your urine is not draining into the bag. Your catheter gets pulled out. Summary An indwelling urinary catheter is a thin, flexible tube that is placed into the bladder to help drain urine out of the body. The catheter is inserted into the part of the body that drains urine from the bladder (urethra). Take good care of your catheter to keep it working properly and help prevent problems from developing. Always wash your hands before and after you handle your catheter or drainage bag. Never pull on your catheter or try to remove it. This information is not intended to replace advice given to you by your health care provider. Make sure you discuss any questions you have with your health care provider. Document Revised: 01/14/2022 Document Reviewed: 01/14/2022 [employer] Patient Education 2022 [employer]. Follow Up Care 09/08/2022 10:24:23 With:Bruce NUGENT MD, URL Address: When:Within 3 Week(s) Comments:S/P Catheter Change [facility] 09-28-2022 Hospital Discharg e instructions Follow Up Care 09/28/2022 08:50:32 With:Bruce NUGENT MD, URL Address: [address] [place], [place] [id number]- When: Unknown [facility] 09-08-2022 Hospital Discharg e instructions Patient Education 09/08/2022 10:02:28 Acute Urinary Retention, Male Acute Urinary Retention, Male Acute urinary retention is a condition in which a person is unable to pass urine. This can last for a short time or for a long time. If left untreated, it can result in kidney damage or other serious complications. What are the causes? This condition may be caused by: Obstruction or narrowing of the tube that drains the bladder (urethra). This may be caused by surgery or problems with nearby organs, such as the prostate gland, which can press or squeeze the urethra. Problems with the nerves in the bladder. These can be caused by diseases, such as multiple sclerosis, or by spinal cord injuries. Certain medicines. Tumors in the area of the pelvis, bladder, or urethra. Diabetes. Degenerative cognitive conditions such as delirium or dementia. Bladder or urinary tract infection. Constipation. Blood in the urine (hematuria). Injury to the bladder or urethra. Psychological (psychogenic) conditions. Someone may hold his urine due to trauma or because he does not want to use the bathroom. What increases the risk? This condition is more likely to develop in older men. As men age, their prostate may become larger and may start pressing or squeezing on the bladder or the urethra. What are the signs or symptoms? Symptoms of this condition include: Trouble urinating. Pain in the lower abdomen. Symptoms usually come on slowly over a long period of time. How is this diagnosed? This condition is diagnosed based on a physical exam and a medical history. You may also have other tests, including: An ultrasound of the bladder or kidneys or both. Blood tests. A urine analysis. Additional tests may be needed such as an MRI, kidney, or bladder function tests. How is this treated? Treatment for this condition may include: Medicines. Placing a thin, sterile tube (catheter) into the bladder to drain urine out of the body. This is called an indwelling urinary catheter. After being inserted, the catheter is held in place with a small balloon that is filled with sterile water. Urine drains from the catheter into a collection bag outside of the body. Behavioral therapy. Treatment for any underlying conditions. If needed, you may be treated in the hospital for kidney function problems or to manage other complications. Follow these instructions at home: Take rnxs-zap-yrzbukw and prescription medicines only as told by your health care provider. Avoid certain medicines, such as decongestants, antihistamines, and some prescription medicines. Do not take any medicine unless your health care provider has approved. If you were given an indwelling urinary catheter, take care of it as told by your health care provider. Drink enough fluid to keep your urine clear or pale yellow. If you were prescribed an antibiotic, take it as told by your health care provider. Do not stop taking the antibiotic even if you start to feel better. Do not use any products that contain nicotine or tobacco, such as cigarettes and e-cigarettes. If you need help quitting, ask your health care provider. Monitor any changes in your symptoms. Tell your health care provider about any changes. If instructed, monitor your blood pressure at home. Report changes as told by your health care provider. Keep all follow-up visits as told by your health care provider. This is important. Contact a health care provider if: You have uncomfortable bladder contractions that you cannot control (spasms) or you leak urine with the spasms. Get help right away if: You have chills or fever. You have blood in your urine. You have a catheter and: ?Your catheter stops draining urine. ?Your catheter falls out. Summary Acute urinary retention is a condition in which a person is unable to pass urine. If left untreated, it can result in kidney damage or other serious complications. The cause of this condition may include an enlarged prostate. As men age, their prostate gland may become larger and may start pressing or squeezing on the bladder or the urethra. Treatment for this condition may include medicines and placement of an indwelling urinary catheter. Monitor any changes in your symptoms. Tell your health care provider about any changes. This information is not intended to replace advice given to you by your health care provider. Make sure you discuss any questions you have with your health care provider. Document Released: 08/22/2001 Document Revised: 04/28/2018 Document Reviewed: 06/17/2017 [employer] Patient Education 2020 [employer]. Follow Up Care 08/11/2022 10:23:42 With:RAFFI ZHENG, Bruce Mina, URL Address: [facility] [place] [id number]- When: Unknown [facility] 07-14-2022 Hospital Discharg e instructions Patient Education 07/14/2022 09:25:24 Acute Urinary Retention, Male Acute Urinary Retention, Male Acute urinary retention is a condition in which a person is unable to pass urine. This can last for a short time or for a long time. If left untreated, it can result in kidney damage or other serious complications. What are the causes? This condition may be caused by: Obstruction or narrowing of the tube that drains the bladder (urethra). This may be caused by surgery or problems with nearby organs, such as the prostate gland, which can press or squeeze the urethra. Problems with the nerves in the bladder. These can be caused by diseases, such as multiple sclerosis, or by spinal cord injuries. Certain medicines. Tumors in the area of the pelvis, bladder, or urethra. Diabetes. Degenerative cognitive conditions such as delirium or dementia. Bladder or urinary tract infection. Constipation. Blood in the urine (hematuria). Injury to the bladder or urethra. Psychological (psychogenic) conditions. Someone may hold his urine due to trauma or because he does not want to use the bathroom. What increases the risk? This condition is more likely to develop in older men. As men age, their prostate may become larger and may start pressing or squeezing on the bladder or the urethra. What are the signs or symptoms? Symptoms of this condition include: Trouble urinating. Pain in the lower abdomen. Symptoms usually come on slowly over a long period of time. How is this diagnosed? This condition is diagnosed based on a physical exam and a medical history. You may also have other tests, including: An ultrasound of the bladder or kidneys or both. Blood tests. A urine analysis. Additional tests may be needed such as an MRI, kidney, or bladder function tests. How is this treated? Treatment for this condition may include: Medicines. Placing a thin, sterile tube (catheter) into the bladder to drain urine out of the body. This is called an indwelling urinary catheter. After being inserted, the catheter is held in place with a small balloon that is filled with sterile water. Urine drains from the catheter into a collection bag outside of the body. Behavioral therapy. Treatment for any underlying conditions. If needed, you may be treated in the hospital for kidney function problems or to manage other complications. Follow these instructions at home: Take fvjk-fzy-hulahfl and prescription medicines only as told by your health care provider. Avoid certain medicines, such as decongestants, antihistamines, and some prescription medicines. Do not take any medicine unless your health care provider has approved. If you were given an indwelling urinary catheter, take care of it as told by your health care provider. Drink enough fluid to keep your urine clear or pale yellow. If you were prescribed an antibiotic, take it as told by your health care provider. Do not stop taking the antibiotic even if you start to feel better. Do not use any products that contain nicotine or tobacco, such as cigarettes and e-cigarettes. If you need help quitting, ask your health care provider. Monitor any changes in your symptoms. Tell your health care provider about any changes. If instructed, monitor your blood pressure at home. Report changes as told by your health care provider. Keep all follow-up visits as told by your health care provider. This is important. Contact a health care provider if: You have uncomfortable bladder contractions that you cannot control (spasms) or you leak urine with the spasms. Get help right away if: You have chills or fever. You have blood in your urine. You have a catheter and: ?Your catheter stops draining urine. ?Your catheter falls out. Summary Acute urinary retention is a condition in which a person is unable to pass urine. If left untreated, it can result in kidney damage or other serious complications. The cause of this condition may include an enlarged prostate. As men age, their prostate gland may become larger and may start pressing or squeezing on the bladder or the urethra. Treatment for this condition may include medicines and placement of an indwelling urinary catheter. Monitor any changes in your symptoms. Tell your health care provider about any changes. This information is not intended to replace advice given to you by your health care provider. Make sure you discuss any questions you have with your health care provider. Document Released: 08/22/2001 Document Revised: 04/28/2018 Document Reviewed: 06/17/2017 [employer] Patient Education 2020 [employer]. Follow Up Care 06/16/2022 09:32:59 With:RAFFI ZHENG, Bruce Mina, URL Address: [address] [id number]- When: Unknown [facility] 06-16-2022 Hospital Discharg e instructions Patient Education 06/16/2022 07:36:52 Neurogenic Bladder Neurogenic Bladder Neurogenic bladder is a bladder control disorder. It is usually caused by problems with the nerves that control the bladder. Your brain sends signals through your spinal cord to the muscles in your bladder that start and stop urine flow. If you have neurogenic bladder, the nerves and muscles do not work together the way they should. This condition may make the bladder overactive, meaning you have trouble holding urine. In other cases, it may make the bladder underactive, meaning you have trouble passing urine. What are the causes? This condition may be caused by any kind of nerve damage or condition that disrupts the signals from your brain to your bladder. Many things can cause these nerve problems, including: A disease that affects the nervous system, such as: ?Alzheimer disease. ?Cerebral palsy. ?Multiple sclerosis. ?Diabetes. ?Parkinson disease. Damage to your brain or spinal cord. This can come from: ?Trauma. ?Tumors. ?Infection. ?Surgery. ?Alcohol abuse. ?Stroke. ?A congenital disability that affects the spinal cord. What increases the risk? You are more likely to develop this condition if you have nerve damage or a nerve disorder. What are the signs or symptoms? Signs and symptoms of this condition include: Leaking or gushing urine (incontinence). A sudden, strong urge to pass urine (urgency). Frequent urination during the day and night. Being unable to empty your bladder completely (urinary retention). Frequent urinary tract infections. How is this diagnosed? This condition may be diagnosed based on: Your symptoms and medical history. A physical exam. Results of a bladder diary. You may be asked to keep a record of your bladder symptoms and the times that you urinate. You may also have tests, such as: A urine test to check for infection. A bladder scan after you urinate to see how much urine is left in your bladder. Tests to measure your urine flow and see how well the flow is controlled (urodynamic tests). A procedure that uses a small device with a camera to look through your urethra into your bladder (cystoscopy). A health care provider who specializes in the urinary tract (urologist) may do this test. Imaging tests of your brain or spine, such as MRI or CT. How is this treated? Treatment for this condition depends on the cause and the symptoms that you have. Work closely with your health care provider to find the treatments that will improve your quality of life. Treatment options include: Learning ways to control when you urinate, such as: ?Urinating at scheduled times. ?Training yourself to delay urination. ?Doing exercises to strengthen the muscles that control urine flow (Kegel exercises). ?Avoiding foods or drinks that make your symptoms worse. Taking medicines to: ?Stimulate an underactive bladder. ?Relax an overactive bladder. ?Treat a urinary tract infection. Learning how to use a thin tube (catheter) to empty your bladder. A catheter is a hollow tube that you pass through your urethra. Procedures to stimulate the nerves that control your bladder. Surgery, if other treatments do not help. Follow these instructions at home: Lifestyle Keep a bladder diary to find out which foods, liquids, or activities make your symptoms worse. Use your bladder diary to schedule bathroom trips. If you are away from home, plan to be near a bathroom when your schedule says you will need one. Limit your drinking of beverages that stimulate urination. These include soda, coffee, and tea. After urinating, wait a few minutes and try again (double voiding). Make sure you urinate just before you leave the house and just before you go to bed. Kegel exercises Do Kegel exercises to strengthen the muscles that control the passing of urine. These muscles are the ones you use to try to hold urine when you need to urinate. To do Kegel exercises: 1.Squeeze your pelvic floor muscles tight, as if you are trying to stop the flow of urine. You should feel a tight lift in your rectal area. If you are female, you should also feel a tightness in your vaginal area. Keep your stomach, buttocks, and legs relaxed. 2.Hold the muscles tight for 5 10 seconds. 3.Relax your muscles for the same amount of time. 4.Repeat 10 times. Repeat this exercise 3 times a day or as many times as told by your health care provider. General instructions Take dqoh-cju-fezgaxz and prescription medicines only as told by your health care provider. Keep all follow-up visits as told by your health care provider. This is important. Contact a health care provider if: You are having a hard time controlling your symptoms. Your symptoms are getting worse. You have signs of a urinary tract infection. These may include: ?A burning feeling when you urinate. ?Chills. ?Fever. Get help right away if: You cannot pass urine. Summary Neurogenic bladder is a bladder control disorder caused by problems with the nerves that control the bladder. This condition may make the bladder overactive or underactive. This condition may be caused by any kind of nerve damage or condition that disrupts the signals from your brain to your bladder. Treatment depends on the cause of your neurogenic bladder and the symptoms that you have. Work closely with your health care provider to find the treatments that will improve your quality of life. This information is not intended to replace advice given to you by your health care provider. Make sure you discuss any questions you have with your health care provider. Document Released: 11/27/2007 Document Revised: 05/29/2018 Document Reviewed: 05/29/2018 [employer] Patient Education 2020 [employer]. Follow Up Care 04/26/2022 08:23:15 With:RAFFI ZHENG, Bruce iMna, URL Address: [address] [id number]- When: Unknown [facility] 05-07-2022 Hospital Discharg e instructions Patient Education 05/07/2022 14:28:14 Endoscopy, Care After Procedure [facility]) Endoscopy Care After Procedure Please read the instructions outlined below and refer to this sheet in the next few weeks. These discharge instructions provide you with general information on caring for yourself after you leave the hospital. Your doctor may also give you specific instructions. While your treatment has been planned according to the most current medical practices available, unavoidable complications occasionally occur. If you have any problems or questions after discharge, please call your doctor. ACTIVITY You may resume your regular activity but move at a slower pace for the next 24 hours. Take frequent rest periods for the next 24 hours. Walking will help expel (get rid of) the air and reduce the bloated feeling in your abdomen. No driving for 24 hours (because of the anesthesia (medicine) used during the test). You may shower. Do not sign any important legal documents or operate any machinery for 24 hours (because of the anesthesia used during the test). NUTRITION Drink plenty of fluids. You may resume your normal diet. Begin with a light meal and progress to your normal diet. Avoid alcoholic beverages for 24 hours or as instructed by your caregiver. MEDICATIONS You may resume your normal medications unless your caregiver tells you otherwise. WHAT YOU CAN EXPECT TODAY You may experience abdominal discomfort such as a feeling of fullness or gas pains. FOLLOW-UP Your doctor will discuss the results of your test with you. SEEK IMMEDIATE MEDICAL ATTENTION IF ANY OF THE FOLLOWING OCCUR: Excessive nausea (feeling sick to your stomach) and/or vomiting. Severe abdominal pain and distention (swelling). Trouble swallowing. Temperature over 100 F (37.8 C). Rectal bleeding or vomiting of blood. Document Released: 12/28/2004 Document Re-Released: 11/07/2006 [employer] Patient Information 2010 [employer]. 05/07/2022 14:28:14 Denny's Esophagus Denny's Esophagus Denny's esophagus occurs when the tissue that lines the esophagus changes or becomes damaged. The esophagus is the tube that carries food from the throat to the stomach. With Denny's esophagus, the cells that line the esophagus are replaced by cells that are similar to the lining of the intestines (intestinal metaplasia). Denny's esophagus itself may not cause any symptoms. However, many people who have Denny's esophagus also have gastroesophageal reflux disease (GERD), which may cause symptoms such as heartburn. Over time, a few people with this condition may develop cancer of the esophagus. Treatment may include medicines, procedures to destroy the abnormal cells, or surgery. What are the causes? The exact cause of this condition is not known. In some cases, the condition develops from damage to the lining of the esophagus caused by GERD. GERD occurs when stomach acids flow up from the stomach into the esophagus. Frequent symptoms of GERD may cause intestinal metaplasia or cause cell changes (dysplasia). What increases the risk? You are more likely to develop this condition if you: Have GERD. Are male. Are . Are obese. Are older than 50. Have a hiatal hernia. This is a condition in which part of your stomach bulges into your chest. Smoke. What are the signs or symptoms? People with Denny's esophagus often have no symptoms. However, many people with this condition also have GERD. Symptoms of GERD may include: Heartburn. Difficulty swallowing. Dry cough. How is this diagnosed? This condition may be diagnosed based on: Results of an upper gastrointestinal endoscopy. For this exam, a thin, flexible tube with a light and a camera on the end (endoscope) is passed down your esophagus. Your health care provider can view the inside of your esophagus during this procedure. Results of a biopsy. For this procedure, several tissue samples are removed (biopsy) from your esophagus. They are then checked for intestinal metaplasia or dysplasia. How is this treated? Treatment for this condition may include: Medicines (proton pump inhibitors, or PPIs) to decrease or stop GERD. Periodic endoscopic exams to make sure that cancer is not developing. A procedure or surgery for dysplasia. This may include: ?Removal or destruction of abnormal cells. ?Removal of part of the esophagus (esophagectomy). Follow these instructions at home: Eating and drinking Eat more fruits and vegetables. Avoid fatty foods. Eat small, frequent meals instead of large meals. Avoid foods that cause heartburn. These foods include: ?Coffee and alcoholic drinks. ?Tomatoes and foods made with tomatoes. ?[place] or spicy foods. ?Chocolate and peppermint. Do not drink alcohol. General instructions Take hxut-gyi-wrxruoa and prescription medicines only as told by your health care provider. Do not use any products that contain nicotine or tobacco, such as cigarettes and e-cigarettes. If you need help quitting, ask your health care provider. If you are being treated for GERD, make sure you take medicines and follow all instructions as told by your health care provider. Keep all follow-up visits as told by your health care provider. This is important. Contact a health care provider if: You have heartburn or GERD symptoms. You have difficulty swallowing. Get help right away if: You have chest pain. You are unable to swallow. You vomit blood or material that looks like coffee grounds. Your stool (feces) is bright red or dark. Summary Denny's esophagus occurs when the tissue that lines the esophagus changes or becomes damaged. Denny's esophagus may be diagnosed with an upper gastrointestinal endoscopy and a biopsy. Treatment may include medicines, procedures to remove abnormal cells, or surgery. Follow your health care provider's instructions about what to eat and drink, what medicines to take, and when to call for help. This information is not intended to replace advice given to you by your health care provider. Make sure you discuss any questions you have with your health care provider. Document Released: 08/05/2004 Document Revised: 09/11/2018 Document Reviewed: 09/11/2018 [employer] Patient Education 2020 [employer]. Follow Up Care 04/20/2022 10:48:26 With:Guadalupe BRITTON Address: [address] [place] [address]. [address] [place] [address] Business (1) When: Unknown Comments:Call for any problems. Office will call to schedule follow up appointment [facility] 05-07-2022 Evaluation + Plan note Extrac raisa from: Title:Post-anesthesia - General Author:Cale Delvalle DO Date:05/07/22 Plan Transfer/ Discharge: Condition stable. Extracted from: Title:Pre-anesthesia - Endoscopy Author:Cale Denny Jr., DO Date:05/07/22 Plan [place] [employer] (ASA) physical status classification: Class II. Anesthetic Preoperative Plan Anesthesia: General. . Anesthetic plan, risks, benefits, and alternatives discussed with the patient and/or family. Patient verbalized understanding. Future Appointments Appointment Date:05/20/2022 09:00:00 AM Scheduled Provider:Gemma Solis Location:[facility] Appointment Type:URO Office Visit Appointment Date:06/16/2022 08:45:00 AM Scheduled Provider:Bruce NUGENT MD Location:[facility] Appointment Type:URO Office Visit [facility]11-[facility]2022 Hospital Discharge instructions Patient Education 04/20/2022 10:21:40 Denny's Esophagus Denny's Esophagus Denny's esophagus occurs when the tissue that lines the esophagus changes or becomes damaged. Theesophagus is the tube that carries food from the throat to the stomach. With Denny's esophagus, the cells that line the esophagus are replaced by cells that are similar to the lining of the intestines (intestinal metaplasia). Denny's esophagus itself may not cause any symptoms. However, many people who have Denny's esophagus also have gastroesophageal reflux disease (GERD), which may cause symptoms such as heartburn. Over time, a few people with this condition may develop cancer of the esophagus. Treatment may include medicines, procedures to destroy the abnormal cells, or surgery. What are the causes? The exact cause of this condition is not known. In some cases, the condition develops from damage to the lining of the esophagus caused by GERD. GERD occurs when stomach acids flow up from the stomach into the esophagus. Frequent symptoms of GERD may cause intestinal metaplasia or cause cell changes (dysplasia). What increases the risk? You are more likely to develop this condition if you: Have GERD. Are male. Are . Are obese. Are older than 50. Have a hiatal hernia. This is a condition in which part of your stomach bulges into your chest. Smoke. What are the signs or symptoms? People with Denny's esophagus often have no symptoms. However, many people with this condition also have GERD. Symptoms of GERD may include: Heartburn. Difficulty swallowing. Dry cough. How is this diagnosed? This condition may be diagnosed based on: Results of an upper gastrointestinal endoscopy. For this exam, a thin, flexible tube with a light and a camera on the end (endoscope) is passed down your esophagus. Your health care provider can viewthe inside of your esophagus during this procedure. Results of a biopsy. For this procedure, several tissue samples are removed (biopsy) from your esophagus. They are then checked for intestinal metaplasia or dysplasia. How is this treated? Treatment for this condition may include: Medicines (proton pump inhibitors, or PPIs) to decrease or stop GERD. Periodic endoscopic exams to make sure that cancer is not developing. A procedure or surgery for dysplasia. This may include: ?Removal or destruction of abnormal cells. ?Removal of part of the esophagus (esophagectomy). Follow these instructions at home: Eating and drinking Eat more fruits and vegetables. Avoid fatty foods. Eat small, frequent meals instead of large meals. Avoid foods that cause heartburn. These foods include: ?Coffee and alcoholic drinks. ?Tomatoes and foods made with tomatoes. ?[place] or spicy foods. ?Chocolate and peppermint. Do not drink alcohol. General instructions Take toxu-yal-ttzedlv and prescription medicines only as told by your health care provider. Do not use any products that contain nicotine or tobacco, such as cigarettes and e-cigarettes. If you need help quitting, ask your health care provider. If you are being treated for GERD, make sure you take medicines and follow all instructions as toldby your health care provider. Keep all follow-up visits as told by your health care provider. This is important. Contact a health care provider if: You have heartburn or GERD symptoms. You have difficulty swallowing. Get help right away if: You have chest pain. You are unable to swallow. You vomit blood or material that looks like coffee grounds. Your stool (feces) is bright red or dark. Summary Denny's esophagus occurs when the tissue that lines the esophagus changes or becomes damaged. Denny's esophagus may be diagnosed with an upper gastrointestinal endoscopy and a biopsy. Treatment may include medicines, procedures to remove abnormal cells, or surgery. Follow your health care provider's instructions about what to eat and drink, what medicines to take, and when to call for help. This information is not intended to replace advice given to you by your health care provider. Make sure you discuss any questions you have with your health care provider. Document Released: 08/05/2004 Document Revised: 09/11/2018 Document Reviewed: 09/11/2018 [employer] Patient Education 2019 [employer]. Follow Up Care 03/11/2022 14:15:39 With:Nubia Thomson CNP Address: When:1 to 2 weeks [facility] 10-27-2022 Hospital Discharge instructions Patient Education 03/25/2022 08:04:08 Acute Urinary Retention, Male Acute Urinary Retention, Male Acute urinary retention is a condition in which a person is unable to pass urine. This can last fora short time or for a long time. If left untreated, it can result in kidney damage or other seriouscomplications. What are the causes? This condition may be caused by: Obstruction or narrowing of the tube that drains the bladder (urethra). This may be caused by surgery or problems with nearby organs, such as the prostate gland, which can press or squeeze the urethra. Problems with the nerves in the bladder. These can be caused by diseases, such as multiple sclerosis, or by spinal cord injuries. Certain medicines. Tumors in the area of the pelvis, bladder, or urethra. Diabetes. Degenerative cognitive conditions such as delirium or dementia. Bladder or urinary tract infection. Constipation. Blood in the urine (hematuria). Injury to the bladder or urethra. Psychological (psychogenic) conditions. Someone may hold his urine due to trauma or because he doesnot want to use the bathroom. What increases the risk? This condition is more likely to develop in older men. As men age, their prostate may become largerand may start pressing or squeezing on the bladder or the urethra. What are the signs or symptoms? Symptoms of this condition include: Trouble urinating. Pain in the lower abdomen. Symptoms usually come on slowly over a long period of time. How is this diagnosed? This condition is diagnosed based on a physical exam and a medical history. You may also have othertests, including: An ultrasound of the bladder or kidneys or both. Blood tests. A urine analysis. Additional tests may be needed such as an MRI, kidney, or bladder function tests. How is this treated? Treatment for this condition may include: Medicines. Placing a thin, sterile tube (catheter) into the bladder to drain urine out of the body. This is called an indwelling urinary catheter. After being inserted, the catheter is held in place with a small balloon that is filled with sterile water. Urine drains from the catheter into a collection bag outside of the body. Behavioral therapy. Treatment for any underlying conditions. If needed, you may be treated in the hospital for kidney function problems or to manage other complications. Follow these instructions at home: Take efhb-jnl-vqerauz and prescription medicines only as told by your health care provider. Avoid certain medicines, such as decongestants, antihistamines, and some prescription medicines. Do not take any medicine unless your health care provider has approved. If you were given an indwelling urinary catheter, take care of it as told by your health care provider. Drink enough fluid to keep your urine clear or pale yellow. If you were prescribed an antibiotic, take it as told by your health care provider. Do not stop taking the antibiotic even if you start to feel better. Do not use any products that contain nicotine or tobacco, such as cigarettes and e-cigarettes. If you need help quitting, ask your health care provider. Monitor any changes in your symptoms. Tell your health care provider about any changes. If instructed, monitor your blood pressure at home. Report changes as told by your health care provider. Keep all follow-up visits as told by your health care provider. This is important. Contact a health care provider if: You have uncomfortable bladder contractions that you cannot control (spasms) or you leak urine withthe spasms. Get help right away if: You have chills or fever. You have blood in your urine. You have a catheter and: ?Your catheter stops draining urine. ?Your catheter falls out. Summary Acute urinary retention is a condition in which a person is unable to pass urine. If left untreated, it can result in kidney damage or other serious complications. The cause of this condition may include an enlarged prostate. As men age, their prostate gland may become larger and may start pressing or squeezing on the bladder or the urethra. Treatment for this condition may include medicines and placement of an indwelling urinary catheter. Monitor any changes in your symptoms. Tell your health care provider about any changes. This information is not intended to replace advice given to you by your health care provider. Make sure you discuss any questions you have with your health care provider. Document Released: 08/22/2001 Document Revised: 04/28/2018 Document Reviewed: 06/17/2017 [employer] Patient Education 2020 [employer]. Follow Up Care 02/25/2022 08:30:57 With:Gemma Solis, URL Address: When: Unknown [facility] 07-27-2022 Hospital Discharge instructions Patient Education 12/23/2021 09:40:55 Acute Urinary Retention, Male Acute Urinary Retention, Male Acute urinary retention is a condition in which a person is unable to pass urine. This can last fora short time or for a long time. If left untreated, it can result in kidney damage or other seriouscomplications. What are the causes? This condition may be caused by: Obstruction or narrowing of the tube that drains the bladder (urethra). This may be caused by surgery or problems with nearby organs, such as the prostate gland, which can press or squeeze the urethra. Problems with the nerves in the bladder. These can be caused by diseases, such as multiple sclerosis, or by spinal cord injuries. Certain medicines. Tumors in the area of the pelvis, bladder, or urethra. Diabetes. Degenerative cognitive conditions such as delirium or dementia. Bladder or urinary tract infection. Constipation. Blood in the urine (hematuria). Injury to the bladder or urethra. Psychological (psychogenic) conditions. Someone may hold his urine due to trauma or because he doesnot want to use the bathroom. What increases the risk? This condition is more likely to develop in older men. As men age, their prostate may become largerand may start pressing or squeezing on the bladder or the urethra. What are the signs or symptoms? Symptoms of this condition include: Trouble urinating. Pain in the lower abdomen. Symptoms usually come on slowly over a long period of time. How is this diagnosed? This condition is diagnosed based on a physical exam and a medical history. You may also have othertests, including: An ultrasound of the bladder or kidneys or both. Blood tests. A urine analysis. Additional tests may be needed such as an MRI, kidney, or bladder function tests. How is this treated? Treatment for this condition may include: Medicines. Placing a thin, sterile tube (catheter) into the bladder to drain urine out of the body. This is called an indwelling urinary catheter. After being inserted, the catheter is held in place with a small balloon that is filled with sterile water. Urine drains from the catheter into a collection bag outside of the body. Behavioral therapy. Treatment for any underlying conditions. If needed, you may be treated in the hospital for kidney function problems or to manage other complications. Follow these instructions at home: Take zrwv-lwb-hjldcfn and prescription medicines only as told by your health care provider. Avoid certain medicines, such as decongestants, antihistamines, and some prescription medicines. Do not take any medicine unless your health care provider has approved. If you were given an indwelling urinary catheter, take care of it as told by your health care provider. Drink enough fluid to keep your urine clear or pale yellow. If you were prescribed an antibiotic, take it as told by your health care provider. Do not stop taking the antibiotic even if you start to feel better. Do not use any products that contain nicotine or tobacco, such as cigarettes and e-cigarettes. If you need help quitting, ask your health care provider. Monitor any changes in your symptoms. Tell your health care provider about any changes. If instructed, monitor your blood pressure at home. Report changes as told by your health care provider. Keep all follow-up visits as told by your health care provider. This is important. Contact a health care provider if: You have uncomfortable bladder contractions that you cannot control (spasms) or you leak urine withthe spasms. Get help right away if: You have chills or fever. You have blood in your urine. You have a catheter and: ?Your catheter stops draining urine. ?Your catheter falls out. Summary Acute urinary retention is a condition in which a person is unable to pass urine. If left untreated, it can result in kidney damage or other serious complications. The cause of this condition may include an enlarged prostate. As men age, their prostate gland may become larger and may start pressing or squeezing on the bladder or the urethra. Treatment for this condition may include medicines and placement of an indwelling urinary catheter. Monitor any changes in your symptoms. Tell your health care provider about any changes. This information is not intended to replace advice given to you by your health care provider. Make sure you discuss any questions you have with your health care provider. Document Released: 08/22/2001 Document Revised: 04/28/2018 Document Reviewed: 06/17/2017 [employer] Patient Education 2020 [employer]. Follow Up Care 09/02/2021 09:43:58 With:RAFFI ZHENG Bruce Mina, URL Address: [facility] [address] [place], [place] [id number]- When: Unknown [facility] 06-29-2022 Hospital Discharge instructions Patient Education 11/25/2021 09:11:39 Acute Urinary Retention, Male Acute Urinary Retention, Male Acute urinary retention is a condition in which a person is unable to pass urine. This can last fora short time or for a long time. If left untreated, it can result in kidney damage or other seriouscomplications. What are the causes? This condition may be caused by: Obstruction or narrowing of the tube that drains the bladder (urethra). This may be caused by surgery or problems with nearby organs, such as the prostate gland, which can press or squeeze the urethra. Problems with the nerves in the bladder. These can be caused by diseases, such as multiple sclerosis, or by spinal cord injuries. Certain medicines. Tumors in the area of the pelvis, bladder, or urethra. Diabetes. Degenerative cognitive conditions such as delirium or dementia. Bladder or urinary tract infection. Constipation. Blood in the urine (hematuria). Injury to the bladder or urethra. Psychological (psychogenic) conditions. Someone may hold his urine due to trauma or because he doesnot want to use the bathroom. What increases the risk? This condition is more likely to develop in older men. As men age, their prostate may become largerand may start pressing or squeezing on the bladder or the urethra. What are the signs or symptoms? Symptoms of this condition include: Trouble urinating. Pain in the lower abdomen. Symptoms usually come on slowly over a long period of time. How is this diagnosed? This condition is diagnosed based on a physical exam and a medical history. You may also have othertests, including: An ultrasound of the bladder or kidneys or both. Blood tests. A urine analysis. Additional tests may be needed such as an MRI, kidney, or bladder function tests. How is this treated? Treatment for this condition may include: Medicines. Placing a thin, sterile tube (catheter) into the bladder to drain urine out of the body. This is called an indwelling urinary catheter. After being inserted, the catheter is held in place with a small balloon that is filled with sterile water. Urine drains from the catheter into a collection bag outside of the body. Behavioral therapy. Treatment for any underlying conditions. If needed, you may be treated in the hospital for kidney function problems or to manage other complications. Follow these instructions at home: Take vnug-rwg-dgiebqn and prescription medicines only as told by your health care provider. Avoid certain medicines, such as decongestants, antihistamines, and some prescription medicines. Do not take any medicine unless your health care provider has approved. If you were given an indwelling urinary catheter, take care of it as told by your health care provider. Drink enough fluid to keep your urine clear or pale yellow. If you were prescribed an antibiotic, take it as told by your health care provider. Do not stop taking the antibiotic even if you start to feel better. Do not use any products that contain nicotine or tobacco, such as cigarettes and e-cigarettes. If you need help quitting, ask your health care provider. Monitor any changes in your symptoms. Tell your health care provider about any changes. If instructed, monitor your blood pressure at home. Report changes as told by your health care provider. Keep all follow-up visits as told by your health care provider. This is important. Contact a health care provider if: You have uncomfortable bladder contractions that you cannot control (spasms) or you leak urine withthe spasms. Get help right away if: You have chills or fever. You have blood in your urine. You have a catheter and: ?Your catheter stops draining urine. ?Your catheter falls out. Summary Acute urinary retention is a condition in which a person is unable to pass urine. If left untreated, it can result in kidney damage or other serious complications. The cause of this condition may include an enlarged prostate. As men age, their prostate gland may become larger and may start pressing or squeezing on the bladder or the urethra. Treatment for this condition may include medicines and placement of an indwelling urinary catheter. Monitor any changes in your symptoms. Tell your health care provider about any changes. This information is not intended to replace advice given to you by your health care provider. Make sure you discuss any questions you have with your health care provider. Document Released: 08/22/2001 Document Revised: 04/28/2018 Document Reviewed: 06/17/2017 [employer] Patient Education 2020 [employer]. Follow Up Care 09/02/2021 09:42:34 With:RAFFI ZHENG, Bruce Mina, URL Address: [address] [place], [place] [address] [address] [place], [place] [id number]- When:Within 4 Week(s) Comments:S/P tube change [facility] 06-01-2022 Hospital Discharge instructions Patient Education 10/28/2021 08:44:47 Neurogenic Bladder Neurogenic Bladder Neurogenic bladder is a bladder control disorder. It is usually caused by problems with the nerves that control the bladder. Your brain sends signals through your spinal cord to the muscles in your bladder that start and stop urine flow. If you have neurogenic bladder, the nerves and muscles do notwork together the way they should. This condition may make the bladder overactive, meaning you have trouble holding urine. In other cases, it may make the bladder underactive, meaning you have trouble passing urine. What are the causes? This condition may be caused by any kind of nerve damage or condition that disrupts the signals from your brain to your bladder. Many things can cause these nerve problems, including: A disease that affects the nervous system, such as: ?Alzheimer disease. ?Cerebral palsy. ?Multiple sclerosis. ?Diabetes. ?Parkinson disease. Damage to your brain or spinal cord. This can come from: ?Trauma. ?Tumors. ?Infection. ?Surgery. ?Alcohol abuse. ?Stroke. ?A congenital disability that affects the spinal cord. What increases the risk? You are more likely to develop this condition if you have nerve damage or a nerve disorder. What are the signs or symptoms? Signs and symptoms of this condition include: Leaking or gushing urine (incontinence). A sudden, strong urge to pass urine (urgency). Frequent urination during the day and night. Being unable to empty your bladder completely (urinary retention). Frequent urinary tract infections. How is this diagnosed? This condition may be diagnosed based on: Your symptoms and medical history. A physical exam. Results of a bladder diary. You may be asked to keep a record of your bladder symptoms and the times that you urinate. You may also have tests, such as: A urine test to check for infection. A bladder scan after you urinate to see how much urine is left in your bladder. Tests to measure your urine flow and see how well the flow is controlled (urodynamic tests). A procedure that uses a small device with a camera to look through your urethra into your bladder (cystoscopy). A health care provider who specializes in the urinary tract (urologist) may do this test. Imaging tests of your brain or spine, such as MRI or CT. How is this treated? Treatment for this condition depends on the cause and the symptoms that you have. Work closely withyour health care provider to find the treatments that will improve your quality of life. Treatment options include: Learning ways to control when you urinate, such as: ?Urinating at scheduled times. ?Training yourself to delay urination. ?Doing exercises to strengthen the muscles that control urine flow (Kegel exercises). ?Avoiding foods or drinks that make your symptoms worse. Taking medicines to: ?Stimulate an underactive bladder. ?Relax an overactive bladder. ?Treat a urinary tract infection. Learning how to use a thin tube (catheter) to empty your bladder. A catheter is a hollow tube that you pass through your urethra. Procedures to stimulate the nerves that control your bladder. Surgery, if other treatments do not help. Follow these instructions at home: Lifestyle Keep a bladder diary to find out which foods, liquids, or activities make your symptoms worse. Use your bladder diary to schedule bathroom trips. If you are away from home, plan to be near a bathroom when your schedule says you will need one. Limit your drinking of beverages that stimulate urination. These include soda, coffee, and tea. After urinating, wait a few minutes and try again (double voiding). Make sure you urinate just before you leave the house and just before you go to bed. Kegel exercises Do Kegel exercises to strengthen the muscles that control the passing of urine. These muscles are the ones you use to try to hold urine when you need to urinate. To do Kegel exercises: 1.Squeeze your pelvic floor muscles tight, as if you are trying to stop the flow of urine. You should feel a tight lift in your rectal area. If you are female, you should also feel a tightness in your vaginal area. Keep your stomach, buttocks, and legs relaxed. 2.Hold the muscles tight for 5 10 seconds. 3.Relax your muscles for the same amount of time. 4.Repeat 10 times. Repeat this exercise 3 times a day or as many times as told by your health care provider. General instructions Take [id number]-zcwlpxe and prescription medicines only as told by your health care provider. Keep all follow-up visits as told by your health care provider. This is important. Contact a health care provider if: You are having a hard time controlling your symptoms. Your symptoms are getting worse. You have signs of a urinary tract infection. These may include: ?A burning feeling when you urinate. ?Chills. ?Fever. Get help right away if: You cannot pass urine. Summary Neurogenic bladder is a bladder control disorder caused by problems with the nerves that control the bladder. This condition may make the bladder overactive or underactive. This condition may be caused by any kind of nerve damage or condition that disrupts the signals from your brain to your bladder. Treatment depends on the cause of your neurogenic bladder and the symptoms that you have. Work closely with your health care provider to find the treatments that will improve your quality of life. This information is not intended to replace advice given to you by your health care provider. Make sure you discuss any questions you have with your health care provider. Document Released: 11/27/2007 Document Revised: 05/29/2018 Document Reviewed: 05/29/2018 [employer] Patient Education 2020 [employer]. Follow Up Care 09/02/2021 09:39:40 With:RAFFI ZHENG, Bruce Mina, URL Address: When:11/25/2021 Comments:for S/P catheter change and PSA [facility] 05-04-2022 Hospital Discharge instructions Patient Education 09/30/2021 08:59:38 Indwelling Urinary Catheter Insertion, Care After Indwelling Urinary Catheter Insertion, Care After This sheet gives you information about how to care for yourself after your procedure. Your health care provider may also give you more specific instructions. If you have problems or questions, contact your health care provider. What can I expect after the procedure? After the procedure, it is common to have: Slight discomfort around your urethra where the catheter enters your body. Follow these instructions at home: Keep the drainage bag at or below the level of your bladder. Doing this ensures that urine can onlydrain out, not back into your body. Secure the catheter tubing and drainage bag to your leg or thigh to keep it from moving. Check the catheter tubing regularly to make sure there are no kinks or blockages. Take showers daily to keep the catheter clean. Do not take a bath. Do not pull on your catheter or try to remove it. Disconnect the tubing and drainage bag as little as possible. Empty the drainage bag every 2 4 hours, or more often if needed. Do not let the bag get completely full. Wash your hands with soap and water before and after touching the catheter, tubing, or drainage bag. Do not let the drainage bag or catheter tubing touch the floor. Drink enough fluids to keep your urine clear or pale yellow, or as told by your health care provider. Contact a health care provider if: Urine stops flowing into the drainage bag. You feel pain or pressure in the bladder area. You have back pain. Your catheter gets clogged. Your catheter starts to leak. Your urine looks cloudy. Your drainage bag or tubing looks dirty. You notice a bad smell when emptying your drainage bag. Get help right away if: You have a fever or chills. You have severe pain in your back or your lower abdomen. You have warmth, redness, swelling, or pain in the urethra area. You notice blood in your urine. Your catheter gets pulled out. Summary Do not pull on your catheter or try to remove it. Keep the drainage bag at or below the level of your bladder, but do not let the drainage bag or catheter tubing touch the floor. Wash your hands with soap and water before and after touching the catheter, tubing, or drainage bag. Contact your health care provider if you have a fever, chills, or any other signs of infection. This information is not intended to replace advice given to you by your health care provider. Make sure you discuss any questions you have with your health care provider. Document Released: 06/25/2017 Document Revised: 09/07/2019 Document Reviewed: 06/25/2017 [employer] Patient Education 2019 [employer] 09/30/2021 08:59:34 Indwelling Urinary Catheter Insertion Indwelling Urinary Catheter Insertion For people with certain conditions, urine is not able to move normally through the part of the bodythat drains urine from the bladder (urethra). An indwelling urinary catheter is a thin, sterile tube (catheter) that is placed (inserted) into the bladder through the urethra to help drain urine out of the body. After the catheter is inserted, it is held in place by a small balloon on the catheter that is filled with sterile water. Urine drains from the catheter into a drainage bag outside of thebody. An indwelling urinary catheter may be needed if you have urinary retention problems or bladder obstruction. It may also be needed during and after surgical procedures and for other medical conditions. Tell a health care provider about: Any allergies you have. Any surgeries you have had. Any medical conditions you have. Any blood disorders you have. What are the risks? Generally, this is a safe procedure. However, problems may occur, including: Infection. Bleeding. Damage to other structures or organs. What happens before the procedure? Your health care provider will inspect your urethra before inserting the catheter. What happens during the procedure? To lower your risk of infection: ?Your health care team will wash or sanitize their hands. ?Your skin will be washed with soap. A lubricant will be placed on the catheter to ease the insertion of it into the urethra. The catheter will be inserted into the urethra until you can see urine in the drainage bag. After the urine starts to flow, the catheter may be inserted another couple of inches (about 5 cm). Sterile water will be used to inflate the balloon to hold the catheter in place. After the catheter balloon is inflated, it will be pulled back so it is against the narrow opening at the end of the bladder. Your health care provider will check for urine flow into the drainage bag. The procedure may vary among health care providers and hospitals. What happens after the procedure? Urine in the drainage bag will be emptied and measured by your health care provider while you are in the hospital. Your health care provider will remove the catheter for you. This will be done when the catheter is no longer necessary, which is likely to be before you leave the hospital. Summary An indwelling catheter is a sterile tube that is placed into the bladder through the urethra to help drain urine out of the body. The catheter will be removed as soon as it is no longer necessary. This information is not intended to replace advice given to you by your health care provider. Make sure you discuss any questions you have with your health care provider. Document Released: 06/25/2017 Document Revised: 09/07/2019 Document Reviewed: 06/25/2017 [employer] Patient Education 2020 [employer] Follow Up Care 08/05/2021 11:14:52 With:RAFFI ZHENG, Bruce Mina, URL Address: When: Unknown [facility] 04-06-2022 Hospital Discharge instructions Patient Education 09/02/2021 09:18:58 Neurogenic Bladder Neurogenic Bladder Neurogenic bladder is a bladder control disorder. It is usually caused by problems with the nerves that control the bladder. Your brain sends signals through your spinal cord to the muscles in your bladder that start and stop urine flow. If you have neurogenic bladder, the nerves and muscles do notwork together the way they should. This condition may make the bladder overactive, meaning you have trouble holding urine. In other cases, it may make the bladder underactive, meaning you have trouble passing urine. What are the causes? This condition may be caused by any kind of nerve damage or condition that disrupts the signals from your brain to your bladder. Many things can cause these nerve problems, including: A disease that affects the nervous system, such as: ?Alzheimer disease. ?Cerebral palsy. ?Multiple sclerosis. ?Diabetes. ?Parkinson disease. Damage to your brain or spinal cord. This can come from: ?Trauma. ?Tumors. ?Infection. ?Surgery. ?Alcohol abuse. ?Stroke. ?A congenital disability that affects the spinal cord. What increases the risk? You are more likely to develop this condition if you have nerve damage or a nerve disorder. What are the signs or symptoms? Signs and symptoms of this condition include: Leaking or gushing urine (incontinence). A sudden, strong urge to pass urine (urgency). Frequent urination during the day and night. Being unable to empty your bladder completely (urinary retention). Frequent urinary tract infections. How is this diagnosed? This condition may be diagnosed based on: Your symptoms and medical history. A physical exam. Results of a bladder diary. You may be asked to keep a record of your bladder symptoms and the times that you urinate. You may also have tests, such as: A urine test to check for infection. A bladder scan after you urinate to see how much urine is left in your bladder. Tests to measure your urine flow and see how well the flow is controlled (urodynamic tests). A procedure that uses a small device with a camera to look through your urethra into your bladder (cystoscopy). A health care provider who specializes in the urinary tract (urologist) may do this test. Imaging tests of your brain or spine, such as MRI or CT. How is this treated? Treatment for this condition depends on the cause and the symptoms that you have. Work closely withyour health care provider to find the treatments that will improve your quality of life. Treatment options include: Learning ways to control when you urinate, such as: ?Urinating at scheduled times. ?Training yourself to delay urination. ?Doing exercises to strengthen the muscles that control urine flow (Kegel exercises). ?Avoiding foods or drinks that make your symptoms worse. Taking medicines to: ?Stimulate an underactive bladder. ?Relax an overactive bladder. ?Treat a urinary tract infection. Learning how to use a thin tube (catheter) to empty your bladder. A catheter is a hollow tube that you pass through your urethra. Procedures to stimulate the nerves that control your bladder. Surgery, if other treatments do not help. Follow these instructions at home: Lifestyle Keep a bladder diary to find out which foods, liquids, or activities make your symptoms worse. Use your bladder diary to schedule bathroom trips. If you are away from home, plan to be near a bathroom when your schedule says you will need one. Limit your drinking of beverages that stimulate urination. These include soda, coffee, and tea. After urinating, wait a few minutes and try again (double voiding). Make sure you urinate just before you leave the house and just before you go to bed. Kegel exercises Do Kegel exercises to strengthen the muscles that control the passing of urine. These muscles are the ones you use to try to hold urine when you need to urinate. To do Kegel exercises: 1.Squeeze your pelvic floor muscles tight, as if you are trying to stop the flow of urine. You should feel a tight lift in your rectal area. If you are female, you should also feel a tightness in your vaginal area. Keep your stomach, buttocks, and legs relaxed. 2.Hold the muscles tight for 5 10 seconds. 3.Relax your muscles for the same amount of time. 4.Repeat 10 times. Repeat this exercise 3 times a day or as many times as told by your health care provider. General instructions Take vtbz-yln-qusvwzy and prescription medicines only as told by your health care provider. Keep all follow-up visits as told by your health care provider. This is important. Contact a health care provider if: You are having a hard time controlling your symptoms. Your symptoms are getting worse. You have signs of a urinary tract infection. These may include: ?A burning feeling when you urinate. ?Chills. ?Fever. Get help right away if: You cannot pass urine. Summary Neurogenic bladder is a bladder control disorder caused by problems with the nerves that control the bladder. This condition may make the bladder overactive or underactive. This condition may be caused by any kind of nerve damage or condition that disrupts the signals from your brain to your bladder. Treatment depends on the cause of your neurogenic bladder and the symptoms that you have. Work closely with your health care provider to find the treatments that will improve your quality of life. This information is not intended to replace advice given to you by your health care provider. Make sure you discuss any questions you have with your health care provider. Document Released: 11/27/2007 Document Revised: 05/29/2018 Document Reviewed: 05/29/2018 [employer] Patient Education 2020 [employer]. Follow Up Care 08/05/2021 11:11:46 With:Bruce NUGENT MD, URL Address: When:09/30/2021 Comments:for S/P catheter change [facility] Evaluation + Plan note Future Appointments Appointment Date:09/30/2021 08:15:00 AM Scheduled Provider:Bruce NUGENT MD Location:[facility] Appointment Type:URO Office Visit Appointment Date:10/28/2021 08:15:00 AM Scheduled Provider:Bruce NUGENT MD [facility] App[facility] Type:URO Office Visit Appointment Date:11/25/2021 09:15:00 AM Scheduled Provider:[facility] Type[facility] Office Visit Appointment Date:12/23/2021 09:15:00 AM Scheduled Provider:Bruce NUGENT MD [facility] App[facility] Type:URO Office Visit [facility] Evaluation + Plan note Future Appointments Appointment Date:10/28/2021 08:15:00 AM Scheduled Provider:Bruce NUGENT MD Location:[facility] Appointment Type:URO Office Visit Appointment Date:11/25/2021 09:15:00 AM Scheduled Provider:Bruce NUGENT MD Location:[facility] Appointment Type:URO Office Visit Appointment Date:12/23/2021 09:15:00 AM Scheduled Provider:Bruce NUGENT MD Location:[facility] Appointment Type:URO Office Visit [facility] Evaluation + Plan note Future Appointments Appointment Date:11/25/2021 09:15:00 AM Scheduled Provider:Bruce NUGENT MD Location:[facility] Appointment Type:URO Office Visit Appointment Date:12/23/2021 09:15:00 AM Scheduled Provider:Bruce NUGENT MD Location:[facility] Appointment Type:URO Office Visit Future Scheduled Tests Laboratory* PSA Total 10/28/21 [facility] Evanaation + Plan note Future Appointments Appointment Date:11/25/2021 09:15:00 AM Scheduled Provider:Bruce NUGENT MD Location:[facility] Appointment Type:URO Office Visit Appointment Date:12/23/2021 09:15:00 AM Scheduled Provider:Bruce NUGENT MD Location:[facility] Appointment Date:12/23/2021 09:15:00 AM Scheduled Provider:Bruce NUGENT MD Location:[facility] Appointment Type:URO Office Visit [facility] Evina + Plan note Future Appointments Appointment Date:01/21/2022 09:00:00 AM Scheduled Provider:Gemma Solis Location:[facility] Appointment Type:URO Office Visit Appointment Date:02/18/2022 09:00:00 AM Scheduled Provider:Gemma Solis Location:[facility] Appointment Type:URO Office Visit Appointment Date:03/18/2022 09:00:00 AM Scheduled Provider:Gemma Solis Location:[facility] Appointment Type:URO Office Visit [facility] Evaluation + Plan note Future Appointments Appointment Date:02/08/2022 09:00:00 AM Scheduled Provider:Gemma Solis Location:[facility] Appointment Type:URO Office Visit Appointment Date:03/08/2022 08:00:00 AM Scheduled Provider:Gemma Solis Location:[facility] Appointment Type:URO Office Visit Appointment Date:03/18/2022 09:00:00 AM Scheduled Provider:Gemma Solis Location:[facility] Appointment Type:URO Office Visit [facility] Evaluation + Plan note Future Appointments Appointment Date:02/25/2022 08:00:00 AM Scheduled Provider:Gemma Solis Location:[facility] Appointment Date:03/25/2022 08:00:00 AM Scheduled Provider:Gemma Solis Location:[facility] Appointment Type:URO Office Visit Future Scheduled Tests Laboratory* Basic Metabolic Panel 02/25/22 [facility] Evaluation + Plan note Future Appointments Appointment Date:03/25/2022 08:00:00 AM Scheduled Provider:Gemma Solis Location:[facility] Appointment Type:URO Office Visit Appointment Date:04/08/2022 02:00:00 PM Scheduled Provider:Guadalupe BRITTON MD Location:[facility] Appointment Type:[facility] Future App[facility]ments Appointment Date:04/08/2022 02:00:00 PM Scheduled Provider:Guadalupe BRITTON MD Location:[facility] Appointment Type:[facility] Follow Up Appointment Date:04/26/2022 08:00:00 AM Scheduled Provider:Gemma Solis Location:[facility] Appointment Type:URO Office Visit Appointment Date:05/20/2022 09:00:00 AM Scheduled Provider:Gemma Solis Location:[facility] Appointment Type:URO Office Visit [facility] Evaluation + Plan note Future Appointments Appointment Date:04/26/2022 08:00:00 AM Scheduled Provider:Gemma Solis Location:[facility] Appointment Type:URO Office Visit Appointment Date:05/20/2022 09:00:00 AM Scheduled Provider:Gemma Solis Location:[facility] Appointment Type:URO Office Visit Appointment Date:06/21/2022 11:10:00 AM Scheduled Provider: Location:[facility] Appointment Type:[facility] Evaluation + Plan note Future Appointments Appointment Date:06/16/2022 08:45:00 AM Scheduled Provider:Bruce NUGENT MD Location:[facility] Appointment Type:URO Office Visit Appointment Date:07/15/2022 09:00:00 AM Scheduled Provider:Gemma Solis Location:[facility] Appointment Type:URO Office Visit Future Scheduled Tests Laboratory* Basic Metabolic Panel 05/20/22 [facility] Evanaation + Plan note Future Appointments Appointment Date:06/16/2022 08:45:00 AM Scheduled Provider:Bruce NUGENT MD Location:[facility] Appointment Type:URO Office Visit Appointment Date:07/15/2022 09:00:00 AM Scheduled Provider:Gemma Solis Location:[facility] App[facility]ments Appointment Date:07/14/2022 08:45:00 AM Scheduled Provider:Bruce NUGENT MD Location:[facility] Appointment Type:URO Office Visit [facility] Evaluation + Plan note Future Appointments Appointment Date:07/14/2022 08:45:00 AM Scheduled Provider:Bruce NUGENT MD Location:[facility] Appointment Type:URO Office Visit Diagnostic Tests Pending * Calculi Analysis Urinary [facility] App[facility]ments Appointment Date:08/11/2022 09:45:00 AM Scheduled Provider:Bruce NUGENT MD Location:[facility] Appointment Type:URO Office Visit [facility] Evaluation + Plan note Future Appointments Appointment Date:09/08/2022 09:30:00 AM Scheduled Provider:Bruce NUGENT MD Location:[facility] App[facility]ments Appointment Date:10/05/2022 10:30:00 AM Scheduled Provider:Bruce NUGENT MD Location:[facility] Appointment Type:URO Office Visit [facility] Evaluation + Plan note Future Appointments Appointment Date:11/02/2022 08:30:00 AM Scheduled Provider:Bruce NUGENT MD Location:[facility] Appointment Type:URO Office Visit [facility] Evaluation + Plan note Future Appointments Appointment Date:12/14/2022 10:15:00 AM Scheduled Provider:Bruce NUGENT MD Location:[facility] Appointment Type:URO Office Visit [facility] Evaluation + Plan note Future Appointments Appointment Date:01/13/2023 09:15:00 AM Scheduled Provider:ISABEL KEARNEY PA-C Location:[facility] Appointment Type:URO Office Visit [facility] Evaluation + Plan note Future Appointments Appointment Date:04/26/2023 09:00:00 AM Scheduled Provider: Location:[facility] Appointment Type:URO Nurse Visit [facility] evaluation + Plan note Future Appointments Appointment Date:04/27/2023 09:30:00 AM Scheduled Provider: Location:[facility] Appointment Type:URO Nurse Visit Appointment Date:05/17/2023 09:00:00 AM Scheduled Provider: Location:[facility] Appointment Type:URO Nurse Visit [facility] [facility] evaluation + Plan note Future Appointments Appointment Date:05/17/2023 09:00:00 AM Scheduled Provider: Location:[facility] Appointment Type:URO Nurse Visit [facility] Evaluation + Plan note Future Appointments Appointment Date:08/23/2023 08:30:00 AM Scheduled Provider:ISABEL KEARNEY PA-C Location:[facility] Appointment Type:URO Office Visit [facility] evaluation + Plan note Future Appointments Appointment Date:09/20/2023 09:00:00 AM Scheduled Provider:SURYA Orozco APRN, [place] X Location:[facility] Appointment Type:URO Office Visit [facility] evaluation + Plan note Future Appointments Appointment Date:11/01/2023 09:00:00 AM Scheduled Provider:SURYA Orozco APRN, [place] X Location:[facility] Appointment Type:URO Office Visit [facility] evaluation + Plan note Future Appointments Appointment Date:11/01/2023 09:00:00 AM Scheduled Provider:Orzech BUILDING ARCHITECTURAL DESIGNER, HATCHERY HELPER-C, [place] X Location:[facility] Appointment Type:URO Office Visit Diagnostic Tests Pending * [facility] N[facility] No data available for this section [facility] Discharge instructions No data available for this section [facility] No data available for this section [facility] (narrative) Referred by: Yole Cabrera MD [facility] Summary Purpose Family History No Family History Records FoundNo Family History Records Found No data available for this section No data available for this section No data available for this section No data available for this section No data available for this section No data available for this section No Family History Records Found No data available for this section No data available for this section No Family History Records Found Advance Directives No Advanced Directives Records FoundNo Advanced Directives Records FoundNo Advanced Directives Records FoundNo Advanced Directives Records Found Additional Source Comments (unrecognized sect ion and content) No Status Records FoundNo Status Records FoundNo Status Records FoundNo Status Records Found INFORMATION SOURCE (unrecogn ized section and content) DATE CREATED AUTHOR 11/22/2017 [facility] DATE CREATED AUTHOR AUTHOR'S ORGANIZ ATION 11/05/2022 [facility] DATE CREATED AUTHOR AUTHOR'S ORGANIZ ATION 09/10/2023 [facility] DATE CREATED AUTHOR AUTHOR'S ORGANIZ ATION 09/25/2023 [facility] Care Team (unrecognized sect ion and content) Personnel Name: Marli Gaffney MD Address: [address] [place] [address]. [address] [place] [address] Name: Aleta Maciel Name: Chikis Richardson Personnel Name: Marli Gaffney MD Address: [address] [place] [address]. [address] [place] [address] Name: Aleta Maciel Name: Chikis Richardson Personnel Name: Marli Gaffney MD Address: [address] [place] [address] [place] [address] Name: Aleta Maciel Name: Chikis Richardson Personnel Name: Marli Gaffney MD Address: [address] [place] [address]. [place] [address]- Name: Aleta Maciel Name: Chikis Richardson Personnel Name: Marli Gaffney MD Address: [address] [place] [address]. [place] [address]- Name: Aleta Maciel Name: Chikis Richardson Personnel Name: Marli Gaffney MD Address: [address] [place] [address]. [place] [address]- Name: Aleta Maciel Name: Chikis Richardson Personnel Name: Marli Gaffney MD Address: Address: [address] [place] [address]. [place] [address]- Name: Aleta Maciel Name: Chikis Richardson Personnel Name: Marli Gaffney MD Address: Address: [address] [place] [address]. [place] [address]- Name: Aleta Maciel Name: Chikis Richardson Personnel Name: Marli Gaffney MD Address: Address: [address] [place] [address]. [place] [address]- Name: Aleta Maciel Name: Chikis Richardson Personnel Name: Marli Gaffney MD Address: Address: [address] [place] [address]. [place] [address]- Name: Aleta Maciel Name: Chikis Richardson Personnel Name: Marli Gaffney MD Address: Address: [address] [place] [address]. [place] [address]- Name: Aleta Maciel Name: Chikis Richardson Personnel Name: Marli Gaffney MD Address: Address: [address] [place] [address]. [place] [address]- Name: Aleta Maciel M Name: Chikis Richardson Personnel Name: Marli Gaffney MD Address: Address: [address] [place] [address]. [place] [address]- Name: Aleta Maciel Name: Chikis Richardson Personnel Name: Marli Gaffney MD Address: Address: [address] [place] [address]. [place] [address]- Name: Aleta Maciel Name: Chikis Richardson Personnel Name: Marli Gaffney MD Address: Address: [address] [place] [address]. [place] [address]- Name: Aleta Maciel Name: Chikis Richardson Personnel Name: Marli Gaffney MD Address: Address: [address] [place] [address]. [place] [address]- Name: Aleta Maciel Name: Chikis Richardson Personnel Name: Marli Gaffney MD Address: Address: [address] [place] [address]. [address] Name: Aleta Maciel Name: Chikis Richardson Personnel Name: Marli Gaffney MD Address: Address: [address] [place] [address]. [place] [address]- Name: Aleta Maciel Name: Chikis Richardson Personnel Name: Marli Gaffney MD Address: Address: [address] [place] [address]. [place] [address]- Name: Aleta Maciel Name: Chikis Richardson Personnel Name: Marli Gaffney MD Address: Address: [address] [place] [address]. [place] [address]- Name: Aleta Maciel Name: Chikis Richardson Personnel Name: Marli Gaffney MD Address: Address: [address] [place] [address]. [place] [address]- Name: Aleta Maciel Name: Chikis Richardson Personnel Name: Marli Gaffney MD Address: Address: [address] [place] [address]. [place] [address]- Name: Aleta Maciel Name: Chikis Richardson Personnel Name: Marli Gaffney MD Address: Address: [address] [place] [address]. [place] [address]- Name: Aleta Maciel Name: Chikis Richardson Personnel Name: Marli Gaffney MD Address: Address: [address] [place] [address]. [address] Name: Janell Aleta Low Name: Chikis Richardson Personnel Name: Marli Gaffney MD Address: Address: [address] [place] [address]. [address] Name: Aleta Maciel Name: Chikis Richardson Personnel Name: Marli Gaffney MD Address: Address: [address] [place] [address]. [address] Name: Aleta Maciel Name: Cihkis Richardson Personnel Name: Marli Gaffney MD Address: Address: [address] [place] [address]. [address] Name: Aleta Maciel Name: Chikis Richardson Personnel Name: Marli Gaffney MD Address: Address: [address] [place] [address]. [address] Name: Aleta Maciel Name: Chikis Richardson Personnel Name: Marli Gaffney MD Address: Address: [address] [place] [address]. [address] Name: MacielAleta Name: Chikis Richardson Personnel Name: Marli Gaffney MD Address: Address: [address] [place] [address]. [address] Name: Aleta Maciel Name: Chikis Richardson Personnel Name: Marli Gaffney MD Address: Address: [address] [place] [address]. [address] Name: Aleta Maciel Name: Chikis Richardson Source Comments (unrecognize d section and content) In the event this informatio n is protected by the Federal Confidentiality of Alcohol and Drug Abuse Patient Records regulations: The Federal rules restrict any use of the information to criminally investigate or prosecute any alcohol or drug abuse patient.[facility] the event this information is protected by the Federal Confidentiality of Alcohol and Drug Abuse Patient Records regulations: The Federal rules restrict any use of the information to criminally investigate or prosecute any alcohol or drug abuse patient.[facility] Reason for Visit (unrecogniz ed section and content) Reason Comments Received Outside Medical Records FOR RECORDS PERTAINING TO PATIENTS WHO ARE OR HAVE BEEN ENROLLED IN A CHEMICAL DEPENDENCY/SUBSTANCEABUSE PROGRAM, SOME INFORMATION MAY BE OMITTED. This clinical summary was aggregated from multiple sources. Caution should be exercised in using it in the provision of clinical care. This summary normalizes information from multiple sources, and as a consequence, information in this document may materially change the coding, format and clinical context of patient data. In addition, data may be omitted in some cases. CLINICAL DECISIONS SHOULD BE BASED ON THE PRIMARY CLINICAL RECORDS. [employer] [facility]. provides no warranty or guarantee of the accuracy or completeness of information in this document.
--- NOTE | 2023-10-16 23:14 | ED.EAR1 ---
HPI - Ear Problem General Chief complaint: Ear Stated complaint: Earache Time Seen by Provider: 10/16/23 23:05 Source: patient Mode of arrival: walk-in Limitations: no limitations History of Present Illness HPI Narrative: patient states he was here 1-2 days ago for right ear pain. Attempt to irrigate his right ear wax to remove it was not successful. He now returns complaining of continued ear pain. Concern he may have an infection of the ear. He is suppose to call ENT tomorrow because of the wax. No dizziness or headache. describes pain shooting from the ear into his mandible. No fever. Related Data Home Medications ?Medication ?Instructions ?Recorded ?Confirmed baclofen 10 mg tablet 10 mg PO BEDTIME 10/15/23 10/15/23 hydrocodone 5 mg-acetaminophen 300 1 tab PO Q6H 10/15/23 10/15/23 mg tablet omeprazole 40 mg capsule,delayed 40 mg PO BID 10/15/23 10/15/23 release oxybutynin chloride 5 mg tablet 5 mg PO Q8H 10/15/23 10/15/23 potassium citrate 15 mEq (1,620 15 meq PO BID 10/15/23 10/15/23 mg) tablet,extended release Allergies Allergy/AdvReac Type Severity Reaction Status Date / Time No Known Drug Allergies Allergy Verified 02/07/23 18:39 Review of Systems ROS Status of ROS 10 or more systems reviewed and unremarkable except as noted in history and below Exam Constitutional Vital Signs, click to edit/add: Last Vital Signs Temp 98.0 F 10/16/23 22:58 Pulse 93 H 10/16/23 22:58 Resp 18 10/16/23 22:58 BP 169/100 H 10/16/23 22:58 Pulse Ox 99 10/16/23 22:58 O2 Del Method Room Air 10/16/23 22:58 Common normals: no apparent distress, average body habitus, oriented x3, no limitations, healthy appearing, alert and well nourished [facility] Common normals: normocephalic and head/scalp atraumatic Other: right ear wax impacted with dry hard wax. not able to visualize the TM. No obvious narrowing of the canal Eye Common normals: PERRL and EOMs intact bilaterally Respiratory Common normals: normal respiratory effort, no retractions, no use of accessory muscles and clear to auscultation bilaterally Cardio Common normals: regular rate, regular rhythm, S1 normal heart sound and S2 normal heart sound Extremity Common normals: normal to inspection Neuro Common normals: oriented x3, CN's II-XII intact bilaterally, moves all extremities and no focal motor deficits Psych Appearance: grossly normal Course Vital Signs Vital signs: Vital Signs Temperature 98.0 F 10/16/23 22:58 Pulse Rate 93 H 10/16/23 22:58 Respiratory Rate 18 10/16/23 22:58 Blood Pressure 169/100 H 10/16/23 22:58 Pulse Oximetry 99 10/16/23 22:58 Oxygen Delivery Method Room Air 10/16/23 22:58 Temperature 98.0 F 10/16/23 22:58 Pulse Rate 93 H 10/16/23 22:58 Respiratory Rate 18 10/16/23 22:58 Blood Pressure 169/100 H 10/16/23 22:58 Pulse Oximetry 99 10/16/23 22:58 Oxygen Delivery Method Room Air 10/16/23 22:58 Medical Decision Making [facility] Narrative Medical decision making narrative: patient presents with right ear impaction. states ER visit 1-2 days ago were not successful removing the wax after irrigating multiple times. Complains of shooting pain from the ear into his mandible. Concern he may have an infection. Not able to visualize the TM due to the impacted wax. Patient is to follow up with ENT. Will provide course of keflex until evaluated by ENT Discharge Plan Discharge Stand Alone Forms: Portal Instructions Chief Complaint: Ear Clinical Impression: Acute pain of right ear Patient Disposition: Home, Self-Care Prescriptions / Home Meds: No Action omeprazole 40 mg capsule,delayed release(DR/EC) 40 mg PO BID baclofen 10 mg tablet 10 mg PO BEDTIME oxybutynin chloride 5 mg tablet 5 mg PO Q8H potassium citrate 15 mEq tablet extended release 15 meq PO BID hydrocodone-acetaminophen 5-300 mg tablet 1 tab PO Q6H Print Language: [place] Instructions: Earache (ED) Additional Instructions: follow up with ENT Referrals: LISBETH VALDOVINOS [Primary Care Provider] - 1 week
[2023-10-16] MEDS: CEPHALEXIN 500 MG CAPSULE 1000 MG PO (23:29)
--- NOTE | 2023-10-16 23:44 | PC.NURSE ---
had ears flushed here earlier this week, since that time has had increased pain in the right ear. Has been taking [place] that was prescribed from here, only takes the edge off the pain. He thinks there is infection in the ear, he has had sepsis in the past and is afraid to have an infection and let it get worse over night. He has appt with ENT in the morning.
== END 2023-10-16 23:47 | disposition home or self-care (01) ==
PROVIDERS: Emergency Provider Internal Medicine; Family Provider Family Medicine; PCP Family Medicine
DX: H92.01 Otalgia, right ear (principal); Z79.899 Other long term (current) drug therapy
CPT/HCPCS: 99283

== ENCOUNTER 2023-11-28 07:30 | Outpatient (OUT) | payer MEDICARE, SELFPAY ==
--- OUTSIDE RECORDS SUMMARY | 2023-11-28 07:36 | XMS_ITS | CCD ---
Author Organization [facility] CliniSyoh Care Team Providers Care State Attorney Name Role Phone ARMANDO CORONADO Unavailable Unavailable MARLI GAFFNEY Unavailable Unavailable ARMANDO CORONADO Unavailable Unavailable GAFFNEY, MARLI F Unavailable Unavailable Marli Gaffney F Primary Care Physician Aleta Maciel Unavailable Unavailable Chikis Richardson Unavailable Unavailable HAY ., DR ONTIVEROS Attending Unavailable HAY ., DR ONTIVEROS Consulting Unavailable HAY ., DR ONTIVEROS Admitting Unavailable GAFFNEY, DR BOB Consulting Unavailable MISC, DR CASTORENA Attending Unavailable MISC, DR CASTORENA Consulting Unavailable MISC, DR CASTORENA Admitting Unavailable GAFFNEY, DR BOB Consulting Unavailable Unavailable Primary Care Provider UnavailJV Regan Attending Unavailable MARLI GAFFNEY F Referring Unavailable Mayach, Kasey X Attending Unavailable MORIAH KEARNEY Attending Unavailab Kasey Ragsdale Admitting Unavailable Orzenon Kasey X Attending Unavailable Orzech Kasey X Attending Unavailable Yoel Cabrera Attending Unavailable Bruce NUGENT Attending Unavailable Bruce NUGENT Attending Unavailable MORIAH KEARNEY Attending Unavailab MORIAH Onofre Attending Unavailab Luis Leal Attending Unavailable MORIAH KEARNEY Attending Unavailab MORIAH Onofre Attending Unavailab MORIAH Onofre Attending Unavailab Kasey Ragsdale Attending Unavailable Allergies Allergy Classification Reported Allergen(s) Allergy Type Date of Onset Reaction(s) Facility Serotonin Reuptake Inhibitors (SSRIs) (1 source) traZODone; Translations: [trazodone] Drug Allergy Sleep terror disorder (disorder) [facility] (20 sources) traZODone; Translations: [trazodone] Drug Allergy Sleep terror disorder (disorder) [facility] Medications Current Medications Medication Drug Class(es) [...] TID, # 90 tab(s), Refills(s) 11, Pharmacy: [facility], 175, cm, 10/13/22 10:32:00 EDT, Height/Length [...] q12hr, # 10 cap(s), Refills(s) 0, Pharmacy: [facility], 175, cm, 12/30/20 15:19:00 EDT, Height/Length [...] take 500 mg by mouth once daily Athens-3 Fish Oil 500 mg, Oral, Daily, Prophylaxis [...] BID, # 180 cap(s), Refills(s) 3, Pharmacy: [facility], 176, cm, 08/08/23 14:58:00 EDT, Height/Length Dosing, 73.5, kg, 08/08/23 14:58:00 EDT, Weight Dosing Start Date: 08/11/23 Status: Ordered Start: 02-03-2023 End: 08-02-2023 take 1 capsule by mouth once daily omeprazole 40 mg Cap-DR 40 mg = 1 cap(s), Oral, Daily, X 90 day(s), # 90 cap(s), Refills(s) 1, Pharmacy: [facility], 175, cm, 12/13/22 11:33:00 EDT, Height/Length Dosing, 70, kg, 12/13/22 11:33:00 EDT, Weight Dosing Start Date: 02/03/23 Stop Date: 08/02/23 Status: Ordered Start: 05-07-2019 End: 01-11-2023 take 1 capsule by mouth once daily omeprazole 40 mg Cap-DR 40 mg, Oral, Daily, # 30 cap(s), Refills(s) 1, Pharmacy: [facility] Start Date: 05/07/19 Status: Ordered omeprazole 40 mg Cap-DR (3 sources) Start: 05-07-2019 take 1 capsule by mouth once daily omeprazole 40 mg Cap-DR 40 mg, Oral, Daily, # 30 cap(s), Refills(s) 1, Pharmacy: [facility] Start Date: 05/07/19 Status: Ordered oxybutynin chloride 5 mg oral tablet (20 sources) Cholinergic Muscarinic Antagonist Start: 02-01-2023 take 1 tablet by mouth three times daily as needed for muscle spasms oxybutynin 5 mg Tab 5 mg = 1 tab(s), Oral, TID, PRN bladder spasms, # 90 tab(s), Refills(s) 11, Pharmacy: [facility], 175, cm, 12/13/22 11:33:00 EDT, Height/Length Dosing, 70, kg, 12/13/22 11:33:00 EDT, Weight Dosing Start Date: 02/01/23 Status: Ordered Start: 07-29-2022 take 1 tablet by jacobo th three times daily as needed for muscle spasms oxybutynin 5 mg Tab 5 mg = 1 tab(s), Oral, TID, PRN bladder spasms, # 90 tab(s), Refills(s) 3, Pharmacy: [facility], 175, cm, 07/14/22 8:58:00 EST, Height/Length Dosing, 70, kg, 07/14/22 8:58:00 EST, Weight Dosing Start Date: 07/29/22 Status: Ordered Start: 02-05-2022 take 1 tablet by jacobo th twice daily as needed oxybutynin 5 mg Tab 5 mg = 1 tab(s), Oral, BID, PRN for urinary discomfort, # 60 tab(s), Refills(s) 11, Pharmacy: [facility], 175, cm, 01/27/22 15:27:00 EDT, Height/Length Dosing, 70, kg, 01/27/22 15:27:00 EDT, Weight Dosing Start Date: 02/05/22 Status: Ordered Start: 01-28-2021 take 1 tablet by jacobo th twice daily as needed oxybutynin 5 mg Tab 5 mg = 1 tab(s), Oral, BID, PRN for urinary discomfort, # 60 tab(s), Refills(s) 11, Pharmacy: [facility], 175, cm, 12/30/20 15:19:00 EDT, Height/Length Dosing, 75, kg, 01/01/21 20:55:00 EDT, Weight Dosing Start Date: 01/28/21 Status: Ordered monobasic potassium phosphate 0.0408 meq/ml oral solution (7 sources) Start: 09-02-2021 take 1 tablet by mouth once daily K-Phos Original 500 mg oral tablet 1 tab, Oral, Daily, # 30 tab(s), Refills(s) 11, Pharmacy: [facility], 175, cm, 09/02/21 9:22:00 EDT, Height/Length Dosing, 75, kg, 09/02/21 9:22:00 EDT, Weight Dosing Start Date: 09/02/21 Status: Ordered sulfamethoxazole 800 mg / trimethoprim 160 mg oral tablet (2 sources) Dihydrofolate Reductase Inhibitor Antibacterial, Sulfonamide Antimicrobial Start: 09-20-2023 End: 10-11-2023 Bactrim D.S. 800 mg-160 mg Tab 1 tab(s), Oral, BID for 3 week(s), 42 tab(s), Refill(s) 0, [facility], 175, cm, 09/20/23 9:13:00 EDT, [...] Start Date: 05/21/20 Status: Ordered Vitamin D (10 sources) Start: 03-29-2023 Vitamin D International_Unit , Oral, qWeek, Refills(s) 0 Start Date: 03/29/23 Status: Ordered Vitamin E (10 sources) Start: 03-29-2023 vitamin E Oral, Refills(s) 0 Start Date: 03/29/23 Status: Ordered vitamin k1 5 mg oral tablet (10 sources) Warfarin Reversal Agent, Vitamin K Start: [...] BID, # 120 tab(s), Refills(s) 3, Pharmacy: [facility], 176, cm, 08/08/23 14:58:00 EDT, Height/Length Dosing, 73.5, kg, 08/08/23 14:58:00 EDT, Weight Dosing Start Date: 09/15/23 Status: Ordered Start: 09-13-2022 End: 09-08-2023 take 2 tablets by mouth twice daily potassium citrate 15 mEq oral tablet, extended release 30 mEq = 2 tab(s), Oral, BID, X 90 day(s), # 360 tab(s), Refills(s) 3, Pharmacy: [facility], 175, cm, 09/08/22 9:43:00 EDT, Height/Length Dosing, 70, kg, 09/08/22 9:43:00 EDT, Weight Dosing Start Date: 09/13/22 Stop Date: 09/08/23 Status: Ordered Start: 05-25-2022 take 2 tablets by mo ut twice daily potassium citrate 15 mEq oral tablet, extended release 30 mEq = 2 tab(s), Oral, BID, # 120 tab(s), Refills(s) 2, Pharmacy: [facility], 175, cm, 05/20/22 8:59:00 EST, Height/Length Dosing, 70, kg, 05/20/22 8:59:00 EST, Weight Dosing Start Date: 05/25/22 Status: Ordered Start: 01-27-[address] [facility] twice daily potassium citrate 15 mEq oral tablet, extended release 30 mEq = 2 tab(s), Oral, BID, # 120 tab(s), Refills(s) 2, Pharmacy: [facility], 175, cm, 01/27/22 15:27:00 EDT, Height/Length [...] 04-03-2019 Chronic Genitourinary symptoms and ill-defined conditions (12 sources) Urinary catheter in situ 12-13-2022 Chronic [...] Episodic Other diseases of bladder and urethra (18 sources) Neurogenic dysfunction of the urinary bladder; Translations: [Neuromuscular dysfunction of bladder, unspecified] Onset: 09-02-2021 Chronic Other diseases of bladder and urethra (20 sources) Paralysis of bladder 08-06-2020 Chronic Other diseases of bladder and urethra (20 sources) Neurogenic bladder 02-25-2022 Chronic Other diseases of bladder and urethra (18 sources) Spasm of bladder 08-11-2022 Chronic Other diseases of bladder and urethra (3 sources) Disorder of bladder; Translations: [Other specified [...] sources) Swelling of testicle 05-21-2020 Episodic Other male genital disorders (1 source) H/O: male genital disorder; Translations: [Personal history of other diseases of male genital organs] Onset: 10-28-2023 Episodic Other male genital disorders (2 sources) History of prostatitis 10-28-2023 Episodic Other screening for suspected conditions (not mental disorders or infectious disease) (1 source) Screening for malignant neoplasm of colon done; Translations: [Encounter for screening for malignant neoplasm of colon] Onset: 04-20-2022 Episodic Residual codes; unclassified (20 sources) Chronic back pain 03-23-2014 Episodic Residual codes; unclassified (4 sources) Device in situ; Translations: [Presence of [...] Test Name Value Interpretation Reference Range Facility Ambulatory Visit Summaryon 0 10-28-2023 Ambulatory Visit Summary FLORA CHANDRA :1960 Visit Date:10/28/2023 Ambulatory Visit Instructions Your Diagnosis Chronic indwelling Crum catheter Neurogenic bladder Bladder spasms History of prostatitis History of UTI Your Care Team Attending Physician - SURYA Orozco APRN, Kasey Arenas Primary Care Physician - Marli Gaffney MD This Is Your Medications List Contact prescribing physician if questions or concerns ascorbic acid (Vitamin C 250 mg oral tablet) baclofen (baclofen 10 mg Tab) ergocalciferol (Vitamin D) multivitamin (Multi Vitamins oral tablet) omega-3 polyunsaturated fatty acids (Athens-3 Fish Oil) omeprazole (omeprazole 40 mg Cap-DR) [...] lb BMI 23.84 What to do next You Need to Schedule the Following Appointments Follow Up with Pam FARFANN, CARDIOTHORACIC PHYSIOTHERAPIST-C, Kasey X, FAM, URL When: Comments: 7 mos Where: Medications What How Much When Instructions Unchanged ascorbic acid (Vitamin C 250 mg oral tablet) 1 Tablets By Mouth 2 times a day Contact prescribing physician if questions or concerns Unchanged baclofen (baclofen 10 mg Tab) 1 Tablets By Mouth 2 times a day Contact prescribing physician if questions or concerns Unchanged ergocalciferol (Vitamin D) By Mouth Every week Contact prescribing physician if questions or concerns Unchanged multivitamin (Multi Vitamins oral tablet) 1 Tablets By Mouth Every day Contact prescribing physician if questions or concerns Unchanged omega-3 polyunsaturated fatty acids (Athens-3 Fish Oil) 500 Milligram By Mouth Every day Contact prescribing physician if questions or concerns Unchanged omeprazole (omeprazole 40 mg Cap-DR) 1 Capsules By Mouth 2 times a day Contact prescribing physician if questions or concerns Unchanged oxybutynin (oxybutynin 5 mg Tab) 1 Tablets By Mouth 3 times a day PRN bladder spasms Contact prescribing physician if questions or concerns Unchanged phytonadione (Vitamin K 5 mg Tab) 5 Milligram By Mouth Every day Contact prescribing physician if questions or concerns Unchanged potassium citrate (potassium citrate 15 mEq oral tablet, extended release) 2 Tablets By Mouth 2 times a day Contact prescribing physician if questions or concerns Unchanged vitamin E By Mouth Contact prescribing physician if questions or concerns Allergies traZODone (Night terrors) Problems Ongoing - Any problem that you are currently receiving treatment for. Abdominal pain Denny's esophagus Bladder spasms BPH with urinary obstruction Chronic indwelling Crum catheter Colitis Dysuria Gross hematuria History of kidney stones History of prostatitis History of UTI Hypotonic neurogenic bladder Kidney stone Microscopic hematuria Neurogenic bladder Peyronie's disease Problem with urinary catheter Retained ureteral stent Screen for colon cancer Urethritis Urinary retention Urinary tract infection Historical - Any problem that you are no longer receiving treatment for. 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 Please share your experience with us by completing your survey. We appreciate your feedback and thank you for choosing us for your care. Education Materials Indwelling Urinary Catheter Insertion, Care After This sheet gives you information about how to care for yourself after your procedure. Your health care provider may also give you more specific instructions. If you have problems or questions, contact your health care provider. What can I expect after the procedure? After the procedure, it is common to have: ? Slight discomfort around your urethra where the catheter enters your body. Follow these instructions at home: General instructions ? Keep the drainage bag at or below the level of your bladder. By doing this, your urine can only drain out instead of going back into your body. ? Secure the catheter tubing and drainage bag to your leg or thigh to keep it from moving. ? Check the catheter tubing regularly to make sure there are no kinks or blockages. ? Take showers daily to keep the catheter c (more content not included)... Normal [facility] Patient Educationon 10-28-19 24 Patient Education Urology Indwelling Urinary Catheter Insertion, Care After This sheet gives you information about how to care for yourself after your procedure. Your health care provider may also give you more specific instructions. If you have problems or questions, contact your health care provider. What can I expect after the procedure? After the procedure, it is common to have: ? Slight discomfort around your urethra where the catheter enters your body. Follow these instructions at home: General instructions ? Keep the drainage bag at or below the level of your bladder. By doing this, your urine can only drain out instead of going back into your body. ? Secure the catheter tubing and drainage bag to your leg or thigh to keep it from moving. ? Check the catheter tubing regularly to make sure there are no kinks or blockages. ? Take showers daily to keep the catheter clean. Do not take a bath. ? Do not pull on your catheter. ? Disconnect the tubing and drainage bag as little as possible. ? Empty the drainage bag every 2?4 hours, or more often if needed. Do not let the bag get completely full. ? Wash your hands with soap and water before and after touching the catheter, tubing, or drainage bag. ? Do not let the drainage bag or catheter tubing touch the floor. ? Drink enough fluids to keep your urine pale yellow, or as told by your health care provider. How to remove the catheter Remove the catheter only if told by your health care provider. Follow instructions from your health care provider about when and how to remove the catheter. For most catheters, you will need to take the following steps: 1. Prepare your supplies. You will need a: ? Syringe. This would be given to you by your health care provider. ? Towel. ? Wastebasket. 2. Empty the drainage bag if needed. 3. Wash your hands with soap and warm water. 4. Remove the tape that secures the catheter to your leg or thigh. 5. Get into a comfortable position, such as: ? Lying down with your head raised on pillows and your knees pointing to the ceiling. ? Sitting on a chair or the edge of a bed. 6. Place the towel under you to catch any spilled urine. 7. Put the syringe into the balloon port of the catheter. Use a firm push and twist motion to fit the syringe into the balloon port. 8. The water from the balloon will empty into the syringe. 9. Gently pull out the catheter once the balloon is empty. ? If the catheter doesn't slide easily, do not use force. Let your health care provider know that you are not able to remove the catheter. 10. Throw the used catheter and the syringe in the wastebasket. 11. Wipe any spilled urine or water with the towel. 12. Wash your hands with soap and warm water. Safety Let your health care provider know if: ? Your bladder is full, but you are not able to urinate. ? You have removed the catheter, but you are not able to urinate after 8 hours. Contact a health care provider if: ? Your urine: ? Looks cloudy. ? Has a bad smell. ? Stops flowing into the drainage bag. ? Your catheter: ? Gets clogged. ? Starts to leak. ? You feel pain or pressure in the bladder area. ? You have back pain. ? Your drainage bag or tubing looks dirty. Get help right away if: ? You have a fever or chills. ? You have severe pain in your back or your lower abdomen. ? You have warmth, redness, swelling, or pain in the urethra area. ? You notice blood in your urine. ? Your catheter gets pulled out. Summary ? Wash your hands with soap and water before and after touching the catheter, tubing, or drainage bag. ? Do not pull on your catheter or try to remove it. ? Keep the drainage bag at or below the level of your bladder, but do not let the drainage bag or catheter tubing touch the floor. ? Get help right away if you have a fever, chills, or any other signs of infection. This information is not intended to replace advice given to you by your health care provider. Make sure you discuss any questions you have with your health care provider. Document Revised: 08/05/2021 Document Reviewed: 05/01/2021 [employer] Patient Education ? 2021 [employer] [facility] Urology Office/Clinic Noteon 10-28-2023 Urology Office/Clinic Note Chief Complaint 5-6wk fu HPI Staff 62 year old male here for 5-6 week follow up and difficulty with catheter Previous Dx: Prostatitis, indwelling catheter, neurogenic bladder, hx of uti Patient was treated at last office visit with 3 week weeks of Bactrim DS due to prostatitis, Urine culture from that visit was also positive- abx was not changed. Patient states that a week ago he placed a new catheter and fell out a few days later. Patient states that he did replace the catheter 5-6 days ago and did not have any issues however it does not feel right History of Present Illness Tests reviewed: reviewed urine culture I have reviewed the previous health record information and history for this patient from Kasey Orozco NP. I have reviewed and verified the staff HPI to be accurate for this encounter. Review of Systems PHQ Score Initial Depression Screen Score: 0 SCORE Physical Exam Vitals & Measurements HT: 69 in HT: 175 cm WT: 73 kg WT: 160.6 lb BMI: 23.84 General Appearance: alert, no distress, well nourished, well developed male. Assessment/Plan 1. Chronic indwelling Crum catheter (Z97.8: Presence of other specified devices) Patient has chronic indwelling SP tube due to neurogenic bladder. Typically changes every 10 to 14 days at home due to the type of catheter he has and feels it only lasts that long. Recently was able to go 4 weeks between changes. He is irrigating daily. States he changed his catheter over a week ago but then it came out when he had a BM 2-3 days later. Reinserted catheter 1 wk ago, only inserted a few milliliters into the balloon. States it does not feel like it is placed far enough in. Admits he has had good drainage, 2500 mL per day. Readjusted catheter today, removed 10 mL from balloon and replaced it. Assured pt his catheter appears to be draining well. -Continue SP tube changes at home. -F/u in 7 mos or sooner if needed 2. Neurogenic bladder (N31.9: Neuromuscular dysfunction of bladder, unspecified) See #1. 3. Bladder spasms (N32.89: Other specified disorders of bladder) Taking oxybutynin 5 mg tid for spasms and potassium citrate 15 mEq 2 tabs bid to prevent encrustation. -Continue meds wo changes , call for refills. 4. History of prostatitis (Z87.438: Personal history of other diseases of male genital organs) Had perineal pain and testicular pain/tenderness at prior OV. UCx 09/20/23 - >100k E. coli, >100k K. oxytoca, and 50k P. mirabilis. Was tx'd w/ Bactrim x3 wks. Denies any current sxs. States he also had an ear infection recently and was on abx for this as well. 5. History of UTI (Z87.440: Personal history of urinary (tract) infections) Patient reports that he previously had frequency of urinary tract infections. [1] Follow-up With When Contact Information SURYA Orozco APRN, Kasey X, FAM, URL Additional Instructions: 7 mos Patient Education Indwelling Urinary Catheter Insertion, Care After I, Josette Abbott, personally scribed for SURYA Carlson on 10/28/2023 15:10:54. . Documentation recorded by the robbie Abbott accurately reflects the services(s) I performed and decisions made by me. Authenticated by Kasey Orozco APRN, FNP-C on 10/28/2023 15:14:52. Problem List/Past Medical History Ongoing Abdominal pain Ednny's esophagus Bladder spasms BPH with urinary obstruction Chronic indwelling Crum catheter Colitis Dysuria Gross hematuria History of kidney stones History of prostatitis History of UTI Hypotonic neurogenic bladder Kidney [...] EGD (esophagogastroduod enoscopy) gastric outlet reduction. Medications baclofen 10 mg Tab, 10 mg= 1 tab(s), Oral, BID Multi Vitamins oral tablet, 1 tab(s), Oral, Daily Athens-3 Fish Oil, 500 mg, Oral, Daily omeprazole 40 mg Cap-DR, 40 mg= 1 cap(s), Oral, BID, 3 refills oxybutynin 5 mg Tab, 5 mg= 1 tab(s), Oral, TID, 11 refills potassium citrate 15 mEq oral tablet, extended release, 30 mEq= 2 tab(s), Oral, BID, 3 refills Vitamin C 250 mg oral tablet, 250 mg= 1 tab(s), Oral, BID Vitamin D, Oral, qWeek vitamin E, Oral Vitamin K 5 mg Tab, 5 mg, Oral, Daily Allerg (more content not included)... Normal [facility] Comment on above: Result Comment: Elec tronically Signed By: SURYA Orozco APRN, Kasey Arenas\.br\Date and Time Signed: 10/28/23 15:15 EDT\.br\Electronically Co-Signed By: Josette Abbott\.br\Date and Time Co-Signed: 10/28/23 15:11 EDT C Urineon 09-23-2023 Bacteria identified Cx Nom (U) Microbiology PROCEDURE: Urine Culture [R1] SOURCE: U Cath BODY SITE: COLLECTED DATE/TIME: 09/20/2023 09:49 EDT RECEIVED DATE/TIME: 09/20/2023 18:06 EDT START DATE/TIME: 09/20/2023 18:06 EDT FREE TEXT SOURCE: cath SURYA Orozco APRN, SURYA Orozco APRN, Kasey Parks X FINAL REPORTS Final Report [] Verified [...] Locations R1: This test was performed at: [facility], [address] [place] [address], [id number] , , [facility] Comment on above: Performed By: #### [id number] ####[facility] [address] [place] [address] Patient Educationon 09-20-19 24 Patient Education Infectious Disease Prostatitis Prostatitis is [...] these instructions at home: Medicines ? Take [id number] and prescription medicines only as told by [...] Where to find more information ? National [place] of Diabetes and Digestive and Kidney Diseases: (more content not included)... Normal [facility] Urology Office/Clinic Noteon 09-20-2023 Urology Office/Clinic Note [...] with S/P tube changes. Has been changing [id number] (due to kind of tubing) History of Present Illness I have reviewed and verified the staff HPI to be accurate for this encounter. Portions of this record may have been created with voice recognition artificial intelligence software, specifically Pressglue, TinyTap and or LoveThis. Substitutions may have occurred due to the [...] for 3 week(s), 42 tab(s), Refill(s) 0, [facility], 175, cm, 09/20/23 9:13:00 EDT, Height/Length [...] Cystoscopy (06/26/ (more content not included)... Normal [facility] Comment on above: Result Comment: Elec tronically Signed By: SURYA Orozco APRN, Aurora X\.br\Date and Time Signed: 09/20/23 10:05 EDT Jim 08-22-2023 [place] Telephone ([facility]) ---- FLORA CHANDRA ([id number]) 1960 M Date Time Provider Department 08/22/23 CHERYL SY [facility] During your visit today, we recorded the [...] LIUDMILA GORE on 09/09/23 [facility] CNPNon 08-19-2023 CNPN Telephone ([facility]) ---- FLORA CHANDRA ([id number]) 1960 M Date Time Provider Department 08/19/23 CHERYL SY [facility] During your visit today, we recorded the following information about you: Neli Encarnacion 08/19/2023 2:08 PM Signed Received referral from [employer] and it was scanned in to chart. This is a new pt and requires continue patient registration when they call back. There is a referral for manometry and I LVM to have them give us a call back to schedule. I tried calling [employer] to verify contact information of pt. Called on 08/10 and 08/18. Allergies As of Date: 08/19/2023 (Not on File) Date Reviewed: Never Reviewed Reason for Visit: Received Outside Medical Records [[id number]] Problem List As Of Date: 08/19/2023 (None) Encounter Status:Closed by NELI ENCARNACION on 08/19/23 [facility] Physician Referralon 024 Physician Referral [id number] 40#[id number] [facility] Retail - Clinical Noteon Retail - Clinical Note [id number] C9#[id number] [facility] Ambulatory Visit Summaryon 0 08-08-2023 [...] Vitamins oral tablet) omega-3 polyunsaturated fatty acids (Athens-3 Fish Oil) oxybutynin (oxybutynin 5 mg Tab) [...] ISABEL KEARNEY PA-C Where: 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 Acid reflux (K21.9: Gastro-esophageal reflux disease without esophagitis) Ordered: [facility] External Ambulatory Referral 3. Anal pain (K62.89: Other specified diseases of anus and rectum) Ordered: [facility] External Ambulatory Referral 4. Altered bowel habits (R19.4: Change in bowel habit) Ordered: [facility] External Ambulatory Referral 5. Pelvic floor dysfunction [...] inq. h (more content not included)... Normal [facility] Comment on above: Result Comment: Elec tronically Signed By: Rick ZHENG, Yoel Lara.candace\Date and Time Signed: 08/08/23 15:43 EDT Retail - Clinical Noteon Retail - Clinical Note [id number] ED#[id number] Normal [facility] Ambulatory Visit Summaryon 1 07-18-2022 Ambulatory Visit Summary FLORA CHANDRA :1960 Visit Date:05/17/2023 Ambulatory Visit Instructions Your Care Team Attending Physician - ISABEL KEARNEY PA-C Primary Care Physician - Gulshan ZHENG, Marli Back This Is Your Medications List Misc Prescription (baclofen 10 mg tablet) acetaminophen (acetaminophen 325 mg Tab) ascorbic acid (Vitamin C 250 mg oral tablet) baclofen (baclofen 10 mg Tab) bifidobacterium-lac tobacillus (Nature's Bounty Probiotic) ergocalciferol (Vitamin D) multivitamin (Multi Vitamins oral tablet) omega-3 polyunsaturated fatty acids (Athens-3 Fish Oil) omeprazole (omeprazole 40 mg Cap-DR) [...] ISABEL KEARNEY PA-C Where: [facility] Ambulatory Visit Summaryon 1 Ambulatory Visit Summary [...] Vitamins oral tablet) omega-3 polyunsaturated fatty acids (Athens-3 Fish Oil) omeprazole (omeprazole 40 mg Cap-DR) [...] 9:00 AM EST Where: [facility] Patient Educationon -31-20 23 Patient Education Urology Suprapubic Catheter Replacement Suprapubic [...] straight and without kinks. ? Wrap an jfef bandage gently over the tubing and around [...] and water are not available, use hand visitor services information assistant. ? Disconnect the bag from the catheter and immediately attach a new bag to the catheter. ? Empty the used bag completely. ? Clean the used bag according to the instructor looping's instructions, or as told by your health care provider. ? Let the bag dry completely, and put it in a clean plastic bag before storing it. General instructions ? Always wash your hands before and after caring for your catheter and collection bag. Use soap and water. If soap and water are not available, use hand visitor services information assistant. ? Always make sure there are no [...] You have (more content not included)... Normal [facility] Urology Office/Clinic Noteon 03-29-2023 Urology Office/Clinic Note [...] other specified devices) Last change 02/07/23 at [facility]. The SP tube has been changed [...] Contact Information CAIO MAJOR, ISABEL Rodriguez, URL [address] [place] [address] [phone] Additional Instructions: 3-4wk for SP tube change Patient Education Suprapubic Catheter Replacement Documentation recorded by the scrbritney Abbott accurately reflects the services(s) I performed [...] Nature's Bounty Probiotic, 1 tab(s), Oral, Daily Athens-3 Fish Oil, 500 mg, Oral, Daily omeprazole [...] Daily All (more content not included)... Normal [facility] Comment on above: Result Comment: Elec tronically Signed By: ISABEL KEARNEY PA-C\.br\Date and Time Signed: 03/29/23 09:40 EDT\.br\Electronically Co-Signed By: Josette Abbott\.br\Date and Time Co-Signed: 03/29/23 09:27 EDT Ambulatory [...] Vitamins oral tablet) omega-3 polyunsaturated fatty acids (Athens-3 Fish Oil) omeprazole (omeprazole 40 mg Cap-DR) [...] Every day Unchanged omega-3 polyunsaturated fatty acids (Athens-3 Fish Oil) 500 Milligram By Mouth Every [...] pain Glaucoma Hydrocele Swollen testicle Vomiting Normal [facility] Ambulatory Visit Summaryon 0 12-13-2022 Ambulatory Visit Summary ADELINEMIGUEL FLORA P :1960 Visit Date:12/13/2022 Ambulatory Visit Instructions Your [...] Vitamins oral tablet) omega-3 polyunsaturated fatty acids (Athens-3 Fish Oil) omeprazole (omeprazole 40 mg Cap-DR) [...] ISABEL KEARNEY PA-C Where: [facility] Patient Educationon 12-14-19 Patient Education Obstetrics and [...] health care provider. General instructions ? Take huzl-iha-yiguqct and prescription medicines only as told by [...] monitor yo (more content not included)... Normal [facility] Urology Office/Clinic Noteon 12-13-2022 Urology Office/Clinic Note [...] Contact Information RAFFI ZHENG, Bruce Mina, URL In [address] [place] [address]- Additional Instructions: S/P Catheter Change Patient Education Overactive Bladder, Adult I, Lynne Arredondo, personally scribed for Dr. Nugent on 12/13/2022 12:02:54. . Documentation recorded by the scribeLynne, accurately reflects the services(s) I performed and decisions made by me. Authenticated by Dr. Nugent on 12/13/2022 17:36:56. Portions of this record may have been created with voice recognition artificial intelligence software, specifically Pressglue, TinyTap and or LoveThis. Substitutions may have occurred due to the [...] Nature's Bounty Probiotic, 1 tab(s), Oral, Daily Athens-3 Fish Oil, 500 mg, Oral, Da (more content not included)... Normal [facility] Comment on above: Result Comment: Elec tronically Signed By: Bruce NUGENT MD\.br\Date and Time Signed: 12/13/22 17:37 EDT\.br\Electronically Co-Signed [...] Vitamins oral tablet) omega-3 polyunsaturated fatty acids (Athens-3 Fish Oil) omeprazole (omeprazole 40 mg Cap-DR) [...] Follow-Up Appointments Tuesday 10:15 AM EDT With: Bruce NUGENT MD Where: [facility] Patient Educationon 11-16-19 23 Patient Education Urology Indwelling Urinary Catheter Care, [...] ? Secure the leg bag according to instructor looping's instructions. This may be above or below [...] on each side. Do this in a ehrjw-me-mcpk direction. ? If you are male: ? [...] Clean the drainage bag according to the instructor looping's instructions or as told by your health [...] from getting (more content not included)... Normal [facility] Urology Office/Clinic Noteon 11-15-2022 Urology Office/Clinic Note Chief Complaint SP change HPI Staff Pt is a 61 yr old Male here today for a SP cath change. Pt. was in [facility] on 10/25/22 due to catheter not draining. [...] past 3 weeks after the large 24 Danish silicone catheter was utilized. We replaced that [...] catheter change Follow-up With When Contact Information RAFFI ZHENG, AARON Hull In 3 weeks Additional Instructions: S/P Catheter Change Patient Education Indwelling Urinary Catheter Care, Adult I, Ashtyn Chung, personally scribed for Dr. Nugent on 11/15/2022 10:21:52. . Documentation recorded by the scribeAshtyn, accurately reflects the services(s) I performed and decisions made by me. Authenticated by Dr. Nugent on 11/15/2022 10:23:40. Portions of this record may have been created with voice recognition artificial intelligence software, specifically Pressglue, TinyTap and or LoveThis. Substitutions may have occurred due to the [...] scalp (03/25 (more content not included)... Normal [facility] Comment on above: Result Comment: Elec tronically Signed By: Bruce NUGENT MD\.br\Date and Time Signed: 11/15/22 10:25 EDT\.br\Electronically Co-Signed By: Ashtyn Chung\.br\Date and Time Co-Signed: 11/15/22 10:23 EDT CHEMISTRYOrdered By: SYSTEM SYSTEM on 09-13-2022 [...] - 7.8 gm/dL [facility] Remisol HEMATOLOGYOrdered By: [employer] SYSTEM on 09-08-2022 Basophils/100 WBC (Bld) 1.0 [...] 18.0 % Normal 14.0 - 50.0 % [facility] HemeAutoSS Lymphocytes/Leukocyte s Auto (Bld) [Pure # fraction] 0.9 E9/L Low 1.0 - 4.0 E9/L [facility] HemeAutoSS Monocytes/100 WBC (Bld) 9.5 % Normal 4.0 - 14.0 % [facility] HemeAutoSS Monocytes/Leukocytes Auto (Bld) [Pure # fraction] 0.5 E9/L Normal 0.2 - 1.0 E9/L [facility] HemeAutoSS Neutrophils/100 WBC (Bld) 71.5 % Normal 36.0 - 75.0 % [facility] HemeAutoSS Neutrophils/Leukocyte s Auto (Bld) [Pure # fraction] 3.7 E9/L Normal 2.0 - 7.5 E9/L [facility] HemeAutoSS HEMATOLOGYOrdered By: Joanna Kirk on 08-16-2022 Erythrocyte distribution width (RBC) [Ratio] 14.1 % Normal 10.9 - 14.2 % [facility] HemeAutoSS Hematocrit (Bld) [Volume fraction] 48.0 % Normal 37.7 - 49.0 % [facility] HemeAutoSS Hemoglobin (Bld) [Mass/Vol] 16.5 g/dL Normal 13.5 - 17.5 gm/dL [facility] HemeAutoSS MCH (RBC) [Entitic mass] 29.8 pg Normal 27.0 - 34.0 pg [facility] HemeAutoSS MCHC (RBC) [Mass/Vol] 34.3 g/dL Normal 31.4 - 36.0 gm/dL [facility] HemeAutoSS MCV (RBC) [Entitic vol] 86.8 fL Normal 80.0 - 100.0 fL [facility] HemeAutoSS Platelet mean volume (Bld) [Entitic vol] 6.9 fL Normal 6.4 - 10.8 fL [facility] HemeAutoSS Platelets (Bld) [#/Vol] 255.0 E9/L Normal 150.0 - 500.0 E9/L [facility] HemeAutoSS RBC (Bld) [#/Vol] 5.5 E12/L Normal 4.3 - 5.9 E12/L [facility] HemeAutoSS WBC corrected for nucl RBC Auto (Bld) [#/Vol] 5.2 E9/L Normal 4.0 - 11.0 E9/L [facility] MAGNESIUMon 07-21-2022 Magnesium [Mass/Vol] 2.1 mg/dL Normal 1.8-2.4 [facility] Comment on above: Performed By: #### Devante Mccloud, BMP #### [facility] [address] [place] [address] Dr. Geraldine Welch PROF CHEM 8 (BAS METB)on Anion gap [Moles/Vol] 8.1 mmol/L Normal [facility] Comment on above: Performed By: #### Devatne Mccloud, BMP #### [facility] [address] [place] [address] Dr. Geraldine Welch Calcium [Mass/Vol] 9.7 mg/dL Normal 8.5-10.1 [facility] Comment on above: Performed By: #### Devante Mccloud, BMP #### [facility] [address] [place] [address] Dr. Geraldine Welch Chloride [Moles/Vol] 102 mmol/L Normal 98-107 [facility] Comment on above: Performed By: #### Devante Mccloud, BMP #### [facility] [address] [place] [address] Dr. Geraldine Welch CO2 [Moles/Vol] 30.9 mmol/L Normal 21.0-32.0 [facility] Comment on above: Performed By: #### M G, BMP #### [facility] [address] [place] [address] Dr. Geraldine Welch Creatinine [Mass/Vol] 0.90 mg/dL Normal 0.70-1.30 [facility] Comment on above: Performed By: #### M G, BMP #### [facility] [address] [place] [address] Dr. Geraldine Welch EGFR-AF SAUDI ARABIAN >60 Normal >=60 [facility] Comment on above: Performed By: #### M G, BMP #### [facility] [address] [place] [address] Dr. Geraldine Welch EGFR-NON AF SAUDI ARABIAN >60 Normal >=60 [facility] Comment on above: Performed By: #### M G, BMP #### [facility] [address] [place] [address] Dr. Geraldine Welch Glucose [Mass/Vol] 110 mg/dL Critically high 74-106 T [facility] Comment on above: Performed By: #### M G, BMP #### [facility] [address] [place] [address] Dr. Geraldine Welch Potassium [Moles/Vol] 4.0 mmol/L Normal 3.5-5.1 [facility] Comment on above: Performed By: #### M G, BMP #### [facility] [address] [place] [address] Dr. Geraldine Welch Sodium [Moles/Vol] 137 mmol/L Normal 136-145 [facility] Comment on above: Performed By: #### M G, BMP #### [facility] [address] [place] [address] Dr. Geraldine Welch Urea nitrogen [Mass/Vol] 17.0 mg/dL Normal 7.0-18.0 [facility] Comment on above: Performed By: #### M G, BMP #### [facility] [address] [place] [address] Dr. Geraldine Welch Urea nitrogen/Creatinine [Mass ratio] 18.9 mg/mg Normal [facility] Comment on above: Performed By: #### M G, BMP #### [facility] [address] [address] [address] Geraldine Welch VITAMIN B12on 07-21-2022 Cobalamin (Vitamin B12) [Mass/Vol] 1690.0 pg/mL Critically high 193.0-986.0 [facility] Comment on above: Performed By: #### V ITB12 #### [facility] [address] [address] [address] Geraldine Welch CHEMISTRYOrdered By: SYSTEM SYSTEM on 06-09-2022 Anion gap [Moles/Vol] 13 mmol/L Normal 6 - 16 mEq/L [facility] Remisol Calcium [Mass/Vol] 9.4 mg/dL Normal 8.9 - 11. 1 mg/dL [facility] Chloride [Moles/Vol] 99 mmol/L Low 101 - 1 11 mmol/L [facility] CO2 [Moles/Vol] 26 mmol/L Normal 21 - 31 mmol/L [facility] Creatinine [Mass/Vol] 0.9 mg/dL Normal 0.5 - 1.3 mg/dL [facility] GFR/1.73 sq M.predicted among blacks MDRD (S/P/Bld) [Vol rate/Area] mL/min/1.73 m2 Normal >=59mL/min/1. 73 m2 [facility] Chem S GFR/1.73 sq M.predicted among non-blacks MDRD (S/P/Bld) [Vol rate/Area] mL/min/1.73 m2 Normal >=59mL/min/1. 73 m2 FT Chem S Glucose [Mass/Vol] 92 mg/dL Normal 55 - 199 mg/dL [facility] Potassium [Moles/Vol] 3.9 mmol/L Normal 3.5 - 5.3 mmol/L [facility] Sodium [Moles/Vol] 134 mmol/L Low 135 - 145 mmol/L [facility] Urea nitrogen [Mass/Vol] 18 mg/dL Normal 5 - 21 mg/dL [facility] Urea nitrogen/Creatinine [Mass ratio] 20 mg/mg Normal 10 - 20 [facility] CHEMISTRYOrdered By: SYSTEM SYSTEM on 03-19-2022 Anion gap [Moles/Vol] 10 mmol/L Normal 6 - 16 mEq/L [facility] Remisol Calcium [Mass/Vol] 9.4 mg/dL Normal 8.9 - 11. 1 mg/dL [facility] Remisol Chloride [Moles/Vol] 97 mmol/L Low 101 - 1 11 mmol/L [facility] Remisol CO2 [Moles/Vol] 30 mmol/L Normal 21 - 31 mmol/L [facility] Creatinine [Mass/Vol] 0.9 mg/dL Normal 0.5 - 1.3 mg/dL [facility] Remisol GFR/1.73 sq M.predicted among blacks MDRD (S/P/Bld) [Vol rate/Area] mL/min/1.73 m2 Normal >=59mL/min/1. 73 m2 [facility] Chem S GFR/1.73 sq M.predicted among non-blacks MDRD (S/P/Bld) [Vol rate/Area] mL/min/1.73 m2 Normal >=59mL/min/1. 73 m2 [facility] Chem S Glucose [Mass/Vol] 113 mg/dL Normal 55 - 199 mg/dL [facility] Remisol Potassium [Moles/Vol] 4.0 mmol/L Normal 3.5 - 5.3 mmol/L [facility]isol Sodium [Moles/Vol] 133 mmol/L Low 135 - 145 mmol/L [facility] Remisol Urea nitrogen [Mass/Vol] 13 mg/dL Normal 5 - 21 mg/dL [facility] Remisol Urea nitrogen/Creatinine [Mass ratio] 14 mg/mg Normal 10 - 20 [facility] Remisol CHEMISTRYOrdered By: SYSTEM SYSTEM on 01-27-2022 Anion gap [Moles/Vol] 10 mmol/L Normal 6 - 16 mEq/L [facility] Remisol Calcium [Mass/Vol] 9.4 mg/dL Normal 8.9 - 11. 1 mg/dL [facility] Remisol Chloride [Moles/Vol] 104 mmol/L Normal 101 - 1 11 mmol/L [facility] Remisol CO2 [Moles/Vol] 27 mmol/L Normal 21 - 31 mmol/L [facility] Creatinine [Mass/Vol] 0.9 mg/dL Normal 0.5 - 1.3 mg/dL [facility] Remisol GFR/1.73 sq M.predicted among blacks MDRD (S/P/Bld) [Vol rate/Area] mL/min/1.73 m2 Normal >=59mL/min/1. 73 m2 [facility] Chem S GFR/1.73 sq M.predicted among non-blacks MDRD (S/P/Bld) [Vol rate/Area] mL/min/1.73 m2 Normal >=59mL/min/1. 73 m2 [facility] Chem S Glucose [Mass/Vol] 102 mg/dL Normal 55 - 199 mg/dL [facility] Remisol Potassium [Moles/Vol] 4.1 mmol/L Normal 3.5 - 5.3 mmol/L [facility] Remisol Sodium [Moles/Vol] 137 mmol/L Normal 135 - 145 mmol/L [facility] Remisol Urea nitrogen [Mass/Vol] 18 mg/dL Normal 5 - 21 mg/dL [facility] Remisol Urea nitrogen/Creatinine [Mass ratio] 20 mg/mg Normal 10 - 20 [facility] Remisol CHEMISTRYOrdered By: SYSTEM SYSTEM on 11-18-2021 Prostate specific Ag [Mass/Vol] 0.8 ng/mL Normal 0.1 - 3.5 ng/mL [facility] Remisol Vital Signs Date Time Vital Sign Value Performing Clinician Facility 09-20-2023 09:10-0400 Blood Pressure Location [facility] 09-20-2023 09:10-0400 Diastolic blood pressure 80 mm[Hg] [facility] 09-20-2023 09:10-0400 Heart rate 84 /min [facility] 09-20-2023 09:10-0400 Respiratory rate 16 /min [facility] 09-20-2023 09:10-0400 Systolic blood pressure 138 mm[Hg] [facility] 08-08-2023 14:54-0400 Blood Pressure Location Mohamad Mouchli [facility] 08-08-2023 14:54-0400 Diastolic blood pressure 81 mm[Hg] Mohamad Mouchli [facility] 08-08-2023 14:54-0400 Heart rate 71 /min Mohamad Mouchli [facility] 08-08-2023 14:54-0400 Respiratory rate 16 /min Mohamad Mouchli [facility] 08-08-2023 14:54-0400 Systolic blood pressure 134 mm[Hg] Mohamad Mouchli [facility] 03-29-2023 08:25-0400 Blood Pressure Location ISABEL CAIO [facility] 03-29-2023 08:25-0400 Diastolic blood pressure 78 mm[Hg] ISABEL CAIO [facility] 03-29-2023 08:25-0400 Heart rate 80 /min ISABEL CAIO [facility] 03-29-2023 08:25-0400 Respiratory rate 16 /min ISABEL CAIO [facility] 03-29-2023 08:25-0400 Systolic blood pressure 132 mm[Hg] ISABEL CAIO [facility] 09-28-2022 10:25-0400 Blood Pressure Location Bruce NUGENT [facility] 09-28-2022 10:25-0400 Diastolic blood pressure 95 mm[Hg] Bruce COOK [facility] 09-28-2022 10:25-0400 Heart rate 102 /min Bruce COOK [facility] 09-28-2022 10:25-0400 Systolic blood pressure 140 mm[Hg] Bruce COOK [facility] 09-08-2022 09:42-0400 Blood Pressure Location Bruce COOK [facility] 09-08-2022 09:42-0400 Diastolic blood pressure 85 mm[Hg] Bruce COOK [facility] 09-08-2022 09:42-0400 Systolic blood pressure 140 mm[Hg] Bruce COOK [facility] 06-16-2022 08:58-0500 Blood Pressure Location Bruce COOK [facility] 06-16-2022 08:58-0500 Diastolic blood pressure 87 mm[Hg] Bruce COOK [facility] 06-16-2022 08:58-0500 Heart rate 89 /min Bruce COOK [facility] 06-16-2022 08:58-0500 Respiratory rate 16 /min Bruce COOK [facility] 06-16-2022 08:58-0500 Systolic blood pressure 146 mm[Hg] Bruce COOK [facility] 05-20-2022 08:54-0500 Blood Pressure Location Gemma Garner [facility] 05-20-2022 08:54-0500 Diastolic blood pressure 82 mm[Hg] Gemma Garner [facility] 05-20-2022 08:54-0500 Heart rate 96 /min Gemma Garner [facility] 05-20-2022 08:54-0500 Systolic blood pressure 140 mm[Hg] Gemma Garner [facility] 05-07-2022 15:00-0500 Diastolic blood pressure 78 mm[Hg] Butcher SALAM [facility] 05-07-2022 15:00-0500 Heart rate 65 /min Butcher SALAM [facility] 05-07-2022 15:00-0500 Respiratory rate 23 /min Butcher SALAM [facility] 05-07-2022 15:00-0500 Systolic blood pressure 115 mm[Hg] Butcher SALAM [facility] 05-07-2022 14:45-0500 Diastolic blood pressure 70 mm[Hg] Butcher SALAM [facility] 05-07-2022 14:45-0500 Heart rate 67 /min Butcher SALAM [facility] 05-07-2022 14:45-0500 Respiratory rate 13 /min Butcher SALAM [facility] 05-07-2022 14:45-0500 SaO2% (BldA) [Mass fraction] 98 % Butcher SALAM [facility] 05-07-2022 14:45-0500 Systolic blood pressure 109 mm[Hg] Butcher SALAM [facility] 05-07-2022 14:30-0500 Diastolic blood pressure 80 mm[Hg] Butcher SALAM [facility] 05-07-2022 14:30-0500 Heart rate 71 /min Butcher SALAM [facility] 05-07-2022 14:30-0500 Respiratory rate 22 /min Butcher SALAM [facility] 05-07-2022 14:30-0500 SaO2% (BldA) [Mass fraction] 97 % Butcher SALAM [facility] 05-07-2022 14:30-0500 Systolic blood pressure 120 mm[Hg] Butcher SALAM [facility] 05-07-2022 14:20-0500 Body temperature 97.88 [degF] Butcher SALAM [facility] 05-07-2022 14:18-0500 Body temperature 97.7 [degF] Butcher SALAM [facility] 05-07-2022 13:35-0500 Blood Pressure Location Butcher SALAM [facility] 05-07-2022 13:35-0500 Body temperature 97.7 [degF] Butcher SALAM [facility] 04-20-2022 10:28-0500 Diastolic blood pressure 84 mm[Hg] Nubiaeda BriceñoAlix [facility] 04-20-2022 10:28-0500 Mean blood pressure 101 mm[Hg] Nubia Alix [facility] 04-20-2022 10:28-0500 Systolic blood pressure 136 mm[Hg] Nubia Alix [facility] 04-20-2022 10:25-0500 Blood Pressure Location Nubia Thomson [facility] 04-20-2022 10:25-0500 Body temperature 98.06 [degF] Nubia Briceñometz [facility] 04-20-2022 10:25-0500 Diastolic blood pressure 91 mm[Hg] Nubia Briceñometz [facility] 04-20-2022 10:25-0500 Heart rate 85 /min Nubia Thomson [facility] 04-20-2022 10:25-0500 Systolic blood pressure 144 mm[Hg] Nubia Thomson [facility] 03-25-2022 08:06-0400 Blood Pressure Location Gemma Garner [facility] 03-25-2022 08:06-0400 Diastolic blood pressure 95 mm[Hg] Gemma Garner [facility] 03-25-2022 08:06-0400 Heart rate 89 /min Gemma Garner [facility] 03-25-2022 08:06-0400 Systolic blood pressure 141 mm[Hg] Gemma Garner [facility] 02-25-2022 08:10-0400 Blood Pressure Location Gemma Carpios [facility] 02-25-2022 08:10-0400 Diastolic blood pressure 92 mm[Hg] Gemma Garner [facility] 02-25-2022 08:10-0400 Heart rate 81 /min Gemma Garner [facility] 02-25-2022 08:10-0400 Systolic blood pressure 118 mm[Hg] Gemma Garner [facility] 09-02-2021 09:13-0400 Blood Pressure Location Bruce [email or web address] [facility] [employer] 09-02-2021 09:13-0400 Diastolic blood pressure 90 mm[Hg] [email or web address] [facility] 09-02-2021 09:13-0400 Heart rate 112 /min [email or web address] [facility] [employer] 09-02-2021 09:13-0400 Respiratory rate 16 /min [email or web address] [facility] 09-02-2021 09:13-0400 Systolic blood pressure 138 mm[Hg] [email or web address] [facility] [employer] Encounters Encounter Date Encounter Type Care Provider Facility Start: 11-01-2023 End: 11-01-2023 ambulatory Kasey X Orzech Facility:[facility] Start: 11-01-2023 End: 11-01-2023 Patient encounter procedure [facility] X Orzech [facility] Start: 10-31-2023 End: 10-31-2023 ambulatory JV Eda EVELIO Not Available Start: 10-28-2023 End: 10-28-2023 ambulatory Kasey X Orzech Facility[facility] Start: 10-28-2023 End: 10-28-2023 Patient encounter procedure Kasey X Orzech [facility] Start: 09-20-2023 End: 09-20-2023 Lab Drop off Kasey X Orzech [facility] Start: 09-20-2023 End: 09-20-2023 ambulatory Kasey X Orzech [facility] Start: 09-20-2023 End: 09-20-2023 Patient encounter procedure Kasey X Orzech [facility] Start: 08-23-2023 End: 08-23-2023 ambulatory PA-C ISABEL KEARNEY Facility:[facility] Start: 08-23-2023 End: 08-23-2023 Patient encounter procedure ISABEL KEARNEY [facility] Start: 08-22-2023 Telephone encounter Cheryl Sy APRN.MACHINE SHOP SPECIALIST Work Phone: Colorectal Surgery Start: 08-19-2023 Telephone encounter Cheryl Sy APRN.MACHINE SHOP SPECIALIST Work Phone: Colorectal Surgery Comment on above: Received Outside [facility] Records Start: 08-08-2023 End: 08-08-2023 ambulatory Yoel Cabrera Facility:[facility] Start: 08-08-2023 End: 08-08-2023 Patient encounter procedure Yoel Cabrera [facility] Start: 05-17-2023 End: 05-17-2023 ambulatory PA-C ISABEL KEARNEY Facility:[facility] Start: 05-17-2023 End: 05-17-2023 Patient encounter procedure ISABEL KEARNEY [facility] Start: 04-27-2023 End: 04-27-2023 ambulatory Luisja MARTINEZ Facility:[facility] [place] Start: 04-27-2023 End: 04-27-2023 Patient encounter procedure Luis MARTINEZ [facility] Start: 04-26-2023 End: 04-26-2023 ambulatory PA-C ISABEL KEARNEY Facility:[facility] [place] Start: 04-26-2023 End: 04-26-2023 Patient encounter procedure ISABEL RAHMANRY [facility] Start: 03-29-2023 End: 03-29-2023 ambulatory PA-C ISABEL Jennifer KEARNEY Facility:[facility] [place] Start: 03-29-2023 End: 03-29-2023 Patient encounter procedure ISABEL KEARNEY [facility] [place] Start: 03-03-2023 End: 03-03-2023 ambulatory PA-C ISABEL Jennifer CAIO Facility:[facility] [place] Start: 01-12-2023 End: 01-12-2023 ambulatory PA-C ISABEL Jennifer CAIO Facility:[facility] [place] Start: 01-12-2023 End: 01-12-2023 Patient encounter procedure ISABEL KEARNEY [facility] Start: 12-13-2022 End: 12-13-2022 ambulatory Bruce NUGENT Facility:[facility] [place] Start: 12-13-2022 End: 12-13-2022 Patient encounter procedure Bruce NUGENT [facility] Start: 11-15-2022 End: 11-15-2022 ambulatory Bruce NUGENT Facility:[facility] [place] Start: 11-15-2022 End: 11-15-2022 Patient encounter procedure Bruce NUGENT [facility] Start: 10-25-2022 End: 10-26-[address] WESTON Mckeon Facility: Start: 09-28-2022 End: 09-28-2022 Patient encounter procedure Bruce NUGENT [facility] Start: 09-13-2022 End: 09-13-2022 Patient encounter procedure Marli Gaffney [facility] Start: 09-08-2022 End: 09-08-2022 Patient encounter procedure Bruce NUGENT [facility] [place] Start: 08-16-2022 End: 08-16-2022 Patient encounter procedure Marli Gaffney [facility] Start: 07-21-2022 End: 07-22-[address] DOCTOR KARIMI Facility: Start: 07-14-2022 End: 07-14-2022 Patient encounter procedure Bruce NUGENT [facility] Start: 06-16-2022 End: 06-16-2022 Lab Drop off Bruce NUGENT [facility] Start: 06-16-2022 End: 06-16-2022 Patient encounter procedure Bruce NUGENT [facility] [place] Start: 06-09-2022 End: 06-09-2022 Patient encounter procedure Abiliofelice Martinez Patsy [facility] Start: 05-20-2022 End: 05-20-2022 Patient encounter procedure Gemma Martinez Patsy [facility] Start: 05-07-2022 End: 05-07-2022 Patient encounter procedure Guadalupe BRITTON [facility] Start: 04-20-2022 End: 04-20-2022 Patient encounter procedure Nubia Martinez [facility] Start: 03-25-2022 End: 03-25-2022 Patient encounter procedure Indianajennifer Martinez Patsy [facility] Start: 03-19-2022 End: 03-19-2022 Patient encounter procedure Abiliofelice Martinez Patsy [facility] Start: 02-25-2022 End: 02-25-2022 Patient encounter procedure Indianajennifer Martinez Patsy [facility] Start: 01-27-2022 End: 01-27-2022 Patient encounter procedure Indianajennifer Martinez [place] [facility] Start: 01-11-2022 End: 01-11-2022 Patient encounter procedure Gemma Michelle Patsy [facility] Start: 12-23-2021 End: 12-23-2021 Patient encounter procedure Bruce NUGENT [facility] Start: 11-25-2021 End: 11-25-2021 Patient encounter procedure Bruce NUGENT [facility] Start: 11-18-2021 End: 11-18-2021 Patient encounter procedure Bruce NUGENT [facility] Start: 10-28-2021 End: 10-28-2021 Patient encounter procedure Bruce NUGENT [facility] Start: 09-30-2021 End: 09-30-2021 Patient encounter procedure Bruce NUGENT [facility] Start: 09-02-2021 End: 09-02-2021 Patient encounter procedure Bruce NUGENT [facility] Start: 04-15-2017 Ambulatory ARMANDO Mccloud CORONADO Facility: 8 Start: 03-18-2017 Ambulatory ARMANDO CORONADO Facility: 8 Procedures Date Procedure Procedure Detail Performing Clinician Start: 07-23-2020 Cystoscopy Bruce NUGENT Start: 06-12-2020 Cystoscopic removal of ureteric stent Brucerosalinda NUGENT Start: 05-22-2020 Change of urethral catheter Bruce NUGENT Start: 05-22-2020 Extracorporeal shockwave lithotripsy of calculus of kidney Bruce NUGENT Start: 04-13-2020 Cystoscopy Brucerosalinda NUGENT Comment on above: cystoscopy,right retrograde pyelogram, r ight double Jstent cystoscopy,right ret rograde pyelogram, right double Jstent Start: 06-26-2019 Cystoscopy Brucerosalinda NUGENT Start: 06-26-2019 Transurethral prostatectomy Bruce NUGENT Start: 03-25-2017 Pilar cyst of scalp (disorder) Bruce Zaragoza PadminiRG 2 inq. hernia repairs Hal NUGENT Cholecystectomy Bruce NUGENT Colonoscopy Nubia Thomson Esophagogastroduoden oscopy gastric outlet reduction Nubia Thomson Immunizations Immunization Date Immunization Notes Care Provider [facility] 09-16-2021 zoster vaccine recombinant Nubia Thomson [facility] 05-03-2021 influenza virus vaccine, unspecified formulation Nubia Briceñometz [facility] 05-03-2021 SARS-CoV-2 (COVID-19 ) mRNA BNT-162b2 vax Nubia Briceñometz [facility] 03-08-2021 zoster vaccine recombinant Nubia Thomson [facility] 09-09-2020 SARS-CoV-2 (COVID-19 ) mRNA BNT-162b2 vax Bruce NUGENT [facility] 08-20-2020 SARS-CoV-2 (COVID-19 ) mRNA BNT-162b2 vax Bruce NUGENT [facility] 05-27-2017 influenza virus vaccine, unspecified formulation Nubiaeda BriceñoAlix [facility] 03-17-2016 influenza virus vaccine, unspecified formulation Nubiaeda BriceñoAlix [facility] 03-25-2014 influenza, seasonal, injectable Bruce NUGENT [facility] 11-24-2010 tetanus toxoid, reduced diphtheria toxoid, and acellular pertussis vaccine, adsorbed Bruce NUGENT [facility] NEGATED: Highlighted row has not occurred!04-20-2022 influenza virus vaccine, unspecified formulation Nubia Thomson [facility] Payers Date Payer Category Payer Unknown [id number] 2.16.84 [id number] 1960 Unknown [id number] 2.16.84 [id number] 1960 Unknown [id number] 2.16.84 [id number] 1962 Unknown [id number] 2.16.8 [id number] 1962 Unknown [id number] 2.16.8 40.1.328786.3.579.2.727 1962 Unknown [id number] 2.16.8 40.1.682247.3.579.2.727 1962 Unknown [id number] 2.16.8 40.1.195634.3.579.2.727 1962 Unknown [id number] 2.16.8 40.1.263527.3.579.2.727 1962 Unknown [id number] 2.16.8 40.1.189008.3.579.2.72 1962 Unknown [id number] 2.16.8 40.1.551731.3.579.2.727 1962 Unknown [id number] 2.16.8 40.1.925718.3.579.2.727 1962 Unknown [id number] 2.16.8 40.1.866707.3.579.2.727 1962 Unknown [id number] 2.16.8 40.1.766428.3.579.2.727 1962 Unknown [id number] 2.16.8 40.1.720309.3.579.2.727 1962 Unknown [id number] 2.16.8 40.1.220828.3.579.2.727 1962 Unknown [id number] 2.16.8 40.1.614465.3.579.2.727 1962 Unknown [id number] 2.16.8 40.1.922369.3.579.2.727 1962 Unknown [id number] 2.16.8 [id number] 1957 Medicare [id number] Unknown [id number] Unknown [id number] Social History Date Type Detail Facility Start: 08-05-2021 End: 09-20-2023 Tobacco smoking status Never smoked tobacco (finding) [facility] Comment on above: denies Tobacco smoking status Never [facility] Comment on above: denies Sex Assigned At Male [facility] Tobacco smoking status OKIS Tobacco smoking consumption unknown [facility] Start: 1960 Sex Assigned At Not on file C [facility] Medical Equipment Procedure Code Equipment Code Equipment Origin al Text Equipment Identifier Dates [id number] [facility] Start: 04-13-2020 Functional Status Date Assessment Result Facility 10-28-2023 Functional Status N/A [facility] 09-20-2023 Functional Status N/A [facility] 08-08-2023 Functional Status N/A [facility] 03-29-2023 Functional Status N/A [facility] 12-13-2022 Functional Status N/A [facility] 11-15-2022 Functional Status N/A [facility] 09-28-2022 Functional Status N/A [facility] 09-08-2022 Functional Status N/A [facility] 07-14-2022 Functional Status N/A [facility] 06-16-2022 Functional Status N/A [facility] 05-20-2022 Functional Status N/A [facility] 05-07-2022 Functional Status N/A [facility] 04-20-2022 Functional Status N/A [facility] 03-25-2022 Functional Status N/A [facility] 02-25-2022 Functional Status N/A [facility] 01-11-2022 N/A [facility] 12-23-2021 Functional Status N/A [facility] 11-25-2021 Functional Status N/A [facility] Clinical Notes 09-02-2021 to 10-28-2023 Telephone Encounter - Liudmila Gore - 08/22/2023 10:26 AM EDTTelephone Encounter - Neli Encarnacion - 08/19/2023 2:03 PM EDT Note Date & Type Note Facility 10-28-2023 Hospital Discharg e instructions Patient Education 10/28/2023 15:00:22 Indwelling Urinary Catheter Insertion, Care After Indwelling [...] your body. Follow these instructions at home: General instructions Keep the drainage bag at or below the level of your bladder. By doing this, your urine can only drain out instead of going back into your body. Secure the catheter tubing and drainage bag to your leg or thigh to keep it from moving. Check the catheter tubing regularly to make sure there are no kinks or blockages. Take showers daily to keep the catheter clean. Do not take a bath. Do not pull on your catheter. Disconnect the tubing and drainage bag as [...] Drink enough fluids to keep your urine pale yellow, or as told by your health care provider. How to remove the catheter Remove the catheter only if told by your health care provider. Follow instructions from your health care provider about when and how to remove the catheter. For most catheters, you will need to take the following steps: 1.Prepare your supplies. You will need a: Syringe. This would be given to you by your health care provider. Towel. Wastebasket. 2.Empty the drainage bag if needed. 3.Wash your hands with soap and warm water. 4.Remove the tape that secures the catheter to your leg or thigh. 5.Get into a comfortable position, such as: Lying down with your head raised on pillows and your knees pointing to the ceiling. Sitting on a chair or the edge of a bed. 6.Place the towel under you to catch any spilled urine. 7.Put the syringe into the balloon port of the catheter. Use a firm push and twist motion to fit the syringe into the balloon port. 8.The water from the balloon will empty into the syringe. 9.Gently pull out the catheter once the balloon is empty. If the catheter doesn't slide easily, do not use force. Let your health care provider know that you are not able to remove the catheter. 10.Throw the used catheter and the syringe in the wastebasket. 11.Wipe any spilled urine or water with the towel. 12.Wash your hands with soap and warm water. Safety Let your health care provider know if: Your bladder is full, but you are not able to urinate. You have removed the catheter, but you are not able to urinate after 8 hours. Contact a health care provider if: Your urine: ?Looks cloudy. ?Has a bad smell. ?Stops flowing into the drainage bag. Your catheter: ?Gets clogged. ?Starts to leak. You feel pain or pressure in the bladder area. You have back pain. Your drainage bag or tubing looks dirty. Get help right away if: You have a fever or chills. You have severe pain in your back or your lower abdomen. You have warmth, redness, swelling, or pain in the urethra area. You notice blood in your urine. Your catheter gets pulled out. Summary Wash your hands with soap and water before and after touching the catheter, tubing, or drainage bag. Do not pull on your catheter or try to remove it. Keep the drainage bag at or below the level of your bladder, but do not let the drainage bag or catheter tubing touch the floor. Get help right away if you have a fever, chills, or any other signs of infection. This information is not intended to replace advice given to you by your health care provider. Make sure you discuss any questions you have with your health care provider. Document Revised: 08/05/2021 Document Reviewed: 05/01/2021 [employer] Patient Education 2021 Cmed. Follow Up Care 10/28/2023 11:42:13 With:SURYA Orozco APRN, JET Dexter, URL Address: When: Unknown Comments:7 mos [facility] 09-20-2023 Hospital Discharg e instructions Patient Education [...] Follow these instructions at home: Medicines Take pqeb-jwp-ndjbdon and prescription medicines only as told by [...] important. Where to find more information National [place] of Diabetes and Digestive and Kidney Diseases: [...] depends on the type of prostatitis. Take yehc-vmi-htezddg and prescription medicines only as told by [...] provider. Document Revised: 06/20/2020 Document Reviewed: 06/20/2020 [employer] Patient Education 2022 Cmed. Follow Up Care 08/23/2023 12:53:15 With:SURYA Orozco APRN, JET Dexter, URL Address: When: Unknown Comments:5 to 6 weeks for recheck [facility] 08-22-2023 Miscellaneous Notes Left detailed VM offering scheduling assistance for Manometry with consultation with Provider Cheryl Sy CNP. Dr. Cabrera referring. Thank you. Liudmila Desai documented in this encounter [facility] 08-19-2023 Miscellaneous Notes Received referral from [facility] and it was scanned in to chart. This is a new pt and requires continue patient registration when they call back. There is a referral for manometry and I LVM to have them give us a call back to schedule. I tried calling [facility] to verify contact information of pt. Called on 08/10 and 08/18. documented in this encounter [facility] 03-29-2023 Hospital Discharg e instructions Patient Education [...] and water are not available, use hand visitor services information assistant. Disconnect the bag from the catheter and immediately attach a new bag to the catheter. Empty the used bag completely. Clean the used bag according to the instructor looping's instructions, or as told by your health care provider. Let the bag dry completely, and put it in a clean plastic bag before storing it. General instructions Always wash your hands before and after caring for your catheter and collection bag. Use soap and water. If soap and water are not available, use hand visitor services information assistant. Always make sure there are no leaks [...] provider. Document Revised: 03/23/2022 Document Reviewed: 03/23/2022 [employer] Patient Education 2022 Cmed. Follow Up Care 01/24/2023 13:27:19 With:CAIO MAJOR, ISABEL Rodriguez, URL Address: [address] [place] [address] [facility] [place] [address] [phone] When: Unknown Comments:3-4wk for SP tube change [facility] 12-13-2022 Hospital Discharg e instructions Patient Education [...] your health care provider. General instructions Take jopg-lui-blureta and prescription medicines only as told by [...] provider. Document Revised: 02/02/2021 Document Reviewed: 02/02/2021 Else[employer] Patient Education 2022 Cmed. Follow Up Care 11/15/2022 10:25:35 With:RAFFI ZHENG, Bruce Mina, URL Address: [address] [place] [id number]- When:Within 4 Week(s) Comments:S/P Catheter Change [facility] 11-15-2022 Hospital Discharg e instructions Patient Education [...] bag. Secure the leg bag according to instructor looping's instructions. This may be above or below [...] on each side. Do this in a pgefe-my-cgth direction. ?If you are male: ?Use one [...] Clean the drainage bag according to the instructor looping's instructions or as told by your health [...] and water are not available, use hand visitor services information assistant. Always make sure there are no twists, [...] provider. Document Revised: 01/14/2022 Document Reviewed: 01/14/2022 [employer] Patient Education 2022 Cmed. Follow Up Care 09/08/2022 10:24:23 With:Bruce NUGENT MD, URL Address: When:Within 3 Week(s) Comments:S/P Catheter Change [facility] [place] 09-28-2022 Hospital Discharg e instructions Follow Up Care 09/28/2022 08:50:32 With:Bruce NUGENT MD, URL Address: [address] [place], [place] [address] [address] [place] [id number]- When: Unknown [facility] 09-08-2022 Hospital Discharg e instructions Patient Education [...] complications. Follow these instructions at home: Take bqle-sqw-bssenca and prescription medicines only as told by [...] 08/22/2001 Document Revised: 04/28/2018 Document Reviewed: 06/17/2017 [employer] Patient Education 2020 Cmed. Follow Up Care 08/11/2022 10:23:42 With:RAFFI ZHENG, Bruce Mina, URL Address: [address] [place] [address] [place] [id number]- When: Unknown [facility] 07-14-2022 Hospital Discharg e instructions Patient [...] complications. Follow these instructions at home: Take wpfy-rzd-zvxnevm and prescription medicines only as told by [...] 08/22/2001 Document Revised: 04/28/2018 Document Reviewed: 06/17/2017 [employer] Patient Education 2020 Cmed. Follow Up Care 06/16/2022 09:32:59 With:RAFFI ZHENG, Bruce Mina, URL Address: [address] [place] [address] [place] [id number]- When: Unknown [facility] 06-16-2022 Hospital Discharg e instructions Patient [...] your health care provider. General instructions Take ngar-eoc-ojvpoqw and prescription medicines only as told by [...] 11/27/2007 Document Revised: 05/29/2018 Document Reviewed: 05/29/2018 [employer] Patient Education 2020 Cmed. Follow Up Care 04/26/2022 08:23:15 With:RAFFI ZHENG, Bruce Mina, URL Address: [address] [facility] [address] [place], [place] [id number]- When: Unknown [facility] 05-07-2022 Hospital Discharg e instructions Patient Education 05/07/2022 14:28:14 Endoscopy, Care After Procedure [facility] Endoscopy Care After Procedure Please read [...] blood. Document Released: 12/28/2004 Document Re-Released: 11/07/2006 [facility] [employer]. 05/07/2022 14:28:14 Denny's Esophagus Denny's Esophagus Denny's [...] drinks. ?Tomatoes and foods made with tomatoes. ?Keshena or spicy foods. ?Chocolate and peppermint. Do not drink alcohol. General instructions Take vbpq-wla-rfplalo and prescription medicines only as told by [...] 08/05/2004 Document Revised: 09/11/2018 Document Reviewed: 09/11/2018 [employer] Patient Education 2020 Cmed. Follow Up Care 04/20/2022 10:48:26 With:Guadalupe BRITTON Address: [address] [place] [address]. [address] [place] [address] [facility] (1) When: Unknown Comments:Call for any problems. Office will call to schedule follow up appointment [facility] 05-07-2022 Evaluation + Plan note Extrac raisa from: Title:Post-anesthesia - General Author:Cale Delvalle DO Date:05/07/22 Plan Transfer/ Discharge: Condition stable. Extracted from: Title:Pre-anesthesia - Endoscopy Author:Cale Denny Jr., DO Date:05/07/22 Plan [place] [employer] Anesthesiologists (ASA) physical status classification: Class II. Anesthetic Preoperative Plan Anesthesia: General. . Anesthetic plan, risks, benefits, and alternatives discussed with the patient and/or family. Patient verbalized understanding. Future Appointments Appointment Date:05/20/2022 09:00:00 AM Scheduled Provider:Gemma Solis Location:[facility] Appointment Type:URO Office Visit Appointment Date:06/16/2022 08:45:00 AM Scheduled Provider:Bruce NUGENT MD Location:[facility] Appointment Type:URO Office Visit [facility]11-22-2022 Hospital Discharge instructions Patient Education 04/20/2022 [...] drinks. ?Tomatoes and foods made with tomatoes. ?Keshena or spicy foods. ?Chocolate and peppermint. Do not drink alcohol. General instructions Take olqx-gkt-ibbeoku and prescription medicines only as told by [...] 08/05/2004 Document Revised: 09/11/2018 Document Reviewed: 09/11/2018 [employer] Patient Education 2020 Cmed. Follow Up Care 03/11/2022 14:15:39 With:Nubia Thomson CNP Address: When:1 to 2 weeks [facility] 10-27-2022 Hospital Discharge instructions [...] complications. Follow these instructions at home: Take aful-gsl-hxrkenu and prescription medicines only as told by [...] 08/22/2001 Document Revised: 04/28/2018 Document Reviewed: 06/17/2017 [employer] Patient Education 2020 [employer]. Follow Up Care 02/25/2022 08:30:57 With:Gemma Solis, URL Address: When: Unknown [facility] 07-27-2022 Hospital Discharge instructions Patient Education [...] complications. Follow these instructions at home: Take nyif-tey-fjbffdk and prescription medicines only as told by [...] 08/22/2001 Document Revised: 04/28/2018 Document Reviewed: 06/17/2017 [employer] Patient Education 2020 [employer]. Follow Up Care 09/02/2021 09:43:58 With:RAFFI ZHENG, Bruce Mina, URL Address: [address] [place], [place] [id number]- When: Unknown [facility] 06-29-2022 Hospital Discharge instructions Patient Education [...] complications. Follow these instructions at home: Take tkbv-jnu-pwmjayg and prescription medicines only as told by [...] 08/22/2001 Document Revised: 04/28/2018 Document Reviewed: 06/17/2017 [employer] Patient Education 2020 [employer]med. Follow Up Care 09/02/2021 09:42:34 With:RAFFI ZHENG, Bruce Mina, URL Address: [address] [place], [place] [id number] When:Within 4 Week(s) Comments:S/P tube change [facility] 06-01-2022 Hospital Discharge instructions Patient Education [...] your health care provider. General instructions Take delv-zsp-fqkdjjs and prescription medicines only as told by [...] 11/27/2007 Document Revised: 05/29/2018 Document Reviewed: 05/29/2018 [employer] Patient Education 2020 [employer]. Follow Up Care 09/02/2021 09:39:40 With:RAFFI ZHENG, Bruce Mina, URL Address: When:11/25/2021 Comments:for S/P catheter change and PSA [facility] 05-04-2022 Hospital Discharge instructions Patient Education [...] 06/25/2017 Document Revised: 09/07/2019 Document Reviewed: 06/25/2017 [employer] Patient Education 2019 [employer]med. 09/30/2021 08:59:34 Indwelling Urinary Catheter Insertion Indwelling [...] 06/25/2017 Document Revised: 09/07/2019 Document Reviewed: 06/25/2017 [employer] Patient Education 2020 [employer] Follow Up Care 08/05/2021 11:14:52 With:RAFFI ZHENG, Bruce Mina, URL Address: When: Unknown [facility] 04-06-2022 Hospital Discharge instructions Patient Education [...] your health care provider. General instructions Take sgdt-bfq-mxyusaa and prescription medicines only as told by [...] 11/27/2007 Document Revised: 05/29/2018 Document Reviewed: 05/29/2018 [employer] Patient Education 2020 [employer] Follow Up Care 08/05/2021 11:11:46 With:Bruce NUGENT MD, URL Address: When:09/30/2021 Comments:for S/P catheter change [facility] Evaluation + Plan note Future Appointments Appointment Date:09/30/2021 08:15:00 AM Scheduled Provider:Bruce NUGENT MD Location:[facility] [place] Appointment Type:URO Office Visit Appointment Date:10/28/2021 08:15:00 AM Scheduled Provider:Bruce NUGENT MD [facility] Appointment Type:URO Office Visit Appointment Date:11/25/2021 09:15:00 AM Scheduled Provider:Bruce NUGENT MD [facility] App[facility] Type:URO Office Visit Appointment Date:12/23/2021 09:15:00 AM Scheduled Provider:Bruce NUGENT MD [facility] Appointment Type:URO Office Visit [facility] Evaluation + Plan note Future Appointments Appointment Date:10/28/2021 08:15:00 AM Scheduled Provider:Bruce NUGENT MD Location:[facility] [place] Appointment Type:URO Office Visit Appointment Date:11/25/2021 09:15:00 AM Scheduled Provider:Bruce NUGENT MD Location:[facility] [place] Appointment Type:URO Office Visit Appointment Date:12/23/2021 09:15:00 AM Scheduled Provider:Bruce NUGENT MD Location[facility] Appointment Type:URO Office Visit [facility] Evaluation + Plan note Future Appointments Appointment Date:11/25/2021 09:15:00 AM Scheduled Provider:Bruce NUGENT MD Location[facility] Appointment Type:URO Office Visit Appointment Date:12/23/2021 09:15:00 AM Scheduled Provider:Bruce NUGENT MD Location:[facility] Appointment Type:URO Office Visit Future Scheduled Tests Laboratory* PSA Total 10/28/21 [facility] Evaluation + Plan note Future Appointments Appointment Date:11/25/2021 09:15:00 AM Scheduled Provider:Bruce NUGENT MD Location:[facility] Appointment Type:URO Office Visit Appointment Date:12/23/2021 09:15:00 AM Scheduled Provider:Bruce NUGENT MD Location:[facility] App[facility] Future Appointments Appointment Date:12/23/2021 09:15:00 AM Scheduled Provider:Bruce NUGENT MD Location:[facility] Appointment Type:URO Office Visit [facility] Evina + Plan note Future Appointments Appointment Date:01/21/2022 09:00:00 AM Scheduled Provider:Gemma Solis Location:[facility] Appointment Type:URO Office Visit Appointment Date:02/18/2022 09:00:00 AM Scheduled Provider:Gemma Solis Location:[facility] Appointment Type:URO Office Visit Appointment Date:03/18/2022 09:00:00 AM Scheduled Provider:Gemma Solis Location:[facility] Appointment Type:URO Office Visit [facility] Evina + Plan note Future Appointments Appointment Date:02/08/2022 09:00:00 AM Scheduled Provider:Gemma Solis Location:[facility] Appointment Type:URO Office Visit Appointment Date:03/08/2022 08:00:00 AM Scheduled Provider:Gemma Solis Location:[facility] Appointment Type:URO Office Visit Appointment Date:03/18/2022 09:00:00 AM Scheduled Provider:Gemma Solis Location:[facility] Appointment Type:URO Office Visit [facility] Evaluation + Plan note Future Appointments Appointment Date:02/25/2022 08:00:00 AM Scheduled Provider:Gemma Solis Location:[facility] Appointment Date:03/25/2022 08:00:00 AM Scheduled Provider:Gemma Solis Location:[facility] Appointment Type:URO Office Visit Future Scheduled Tests Laboratory* Basic Metabolic Panel 02/25/22 [facility] Evanaation + Plan note Future Appointments Appointment Date:03/25/2022 08:00:00 AM Scheduled Provider:Gemma Solis Location:[facility] Appointment Type:URO Office Visit Appointment Date:04/08/2022 02:00:00 PM Scheduled Provider:Guadalupe BRITTON MD Location[facility]ment Type:BAD [facility] Future Appointments Appointment Date:04/08/2022 02:00:00 PM Scheduled Provider:Guadalupe BRITTON MD Location[facility] Appointment Type:BADH Follow Up Appointment Date:04/26/2022 08:00:00 AM Scheduled Provider:Gemma Solis Location:[facility] Appointment Type:URO Office Visit Appointment Date:05/20/2022 09:00:00 AM Scheduled Provider:Gemma Solis Location:[facility] Appointment Type:URO Office Visit [facility] Evina + Plan note Future Appointments Appointment Date:04/26/2022 08:00:00 AM Scheduled Provider:Gemma Solis Location:[facility] Appointment Type:URO Office Visit Appointment Date:05/20/2022 09:00:00 AM Scheduled Provider:Gemma Solis Location:[facility] Appointment Type:URO Office Visit Appointment Date:06/21/2022 11:10:00 AM Scheduled Provider: Location:[facility] Appointment Type:[facility] Evaluation + Plan note Future Appointments Appointment Date:06/16/2022 08:45:00 AM Scheduled Provider:Bruce NUGENT MD Location:[facility] Appointment Type:URO Office Visit Appointment Date:07/15/2022 09:00:00 AM Scheduled Provider:Gemma Solis Location:[facility] Appointment Type:URO Office Visit Future Scheduled Tests Laboratory* Basic Metabolic Panel 05/20/22 [facility] Evaluation + Plan note Future Appointments Appointment Date:06/16/2022 08:45:00 AM Scheduled Provider:Bruce NUGENT MD Location:[facility] Appointment Type:URO Office Visit Appointment Date:07/15/2022 09:00:00 AM Scheduled Provider:Gemma Solis Location:[facility]ments Appointment Date:07/14/2022 08:45:00 AM Scheduled Provider:Bruce NUGENT MD Location:[facility] Appointment Type:URO Office Visit [facility] Evaluation + Plan note Future Appointments Appointment Date:07/14/2022 08:45:00 AM Scheduled Provider:Bruce NUGENT MD Location:[facility] Appointment Type:URO Office Visit Diagnostic Tests Pending * Calculi Analysis Urinary [facility]22 [facility] Future App[facility]ments Appointment Date:08/11/2022 09:45:00 AM Scheduled Provider:Bruce NUGENT MD Location:[facility] Appointment Type:URO Office Visit [facility] Evaluation + Plan note Future Appointments Appointment Date:09/08/2022 09:30:00 AM Scheduled Provider:Bruce NUGENT MD Location:[facility] App[facility]ment Type:[facility] App[facility]ments Appointment Date:10/05/2022 10:30:00 AM Scheduled Provider:Bruce NUGENT MD Location:[facility] Appointment Type:URO Office Visit [facility] Evaluation + Plan note Future Appointments Appointment Date:11/02/2022 08:30:00 AM Scheduled Provider:Bruce NUGENT MD Location:[facility] Appointment Type:URO Office Visit [facility] Evaluation + Plan note Future Appointments Appointment Date:12/14/2022 10:15:00 AM Scheduled Provider:Bruce NUGENT MD Location:[facility] Appointment Type:URO Office Visit [facility] Evaluation + Plan note Future Appointments Appointment Date:01/13/2023 09:15:00 AM Scheduled Provider:ISABEL KEARNEY PA-C Location:[facility] Appointment Type:URO Office Visit [facility] Evaluation + Plan note Future Appointments Appointment Date:04/26/2023 09:00:00 AM Scheduled Provider: Location:[facility] Appointment Type:URO Nurse Visit [facility] evaluation + Plan note Future Appointments Appointment Date:04/27/2023 09:30:00 AM Scheduled Provider: Location:[facility] Appointment Type:URO Nurse Visit Appointment Date:05/17/2023 09:00:00 AM Scheduled Provider: Location:[facility] Appointment Type:URO Nurse Visit [facility] evaluation + Plan note Future Appointments Appointment Date:05/17/2023 09:00:00 AM Scheduled Provider: Location:[facility] Appointment Type:URO Nurse Visit [facility] Evaluation + Plan note Future Appointments Appointment Date:08/23/2023 08:30:00 AM Scheduled Provider:ISABEL KEARNEY PA-C Location:[facility] Appointment Type:URO Office Visit [facility] evaluation + Plan note Future Appointments Appointment Date:09/20/2023 09:00:00 AM Scheduled Provider:SURYA Orozco APRN, Kasey X Location:[facility] Appointment Type:URO Office Visit [facility] evaluation + Plan note Future Appointments Appointment Date:11/01/2023 09:00:00 AM Scheduled Provider:SURYA Orozco APRN, Kasey X Location:[facility] Appointment Type:URO Office Visit [facility] evaluation + Plan note Future Appointments Appointment Date:11/01/2023 09:00:00 AM Scheduled Provider:SURYA Orozco APRN, Kasey X Location:[facility] Appointment Type:URO Office Visit Diagnostic Tests Pending * Urine Culture [facility]20[facility]23 [facility] Narrative No data available for this section [facility] Hospital Discharge instructions No data available for this section [facility] No data available for this section [facility] (narrative) Referred by: Rick ZHENG, Yoel Damico [facility] Summary Purpose Family History [...] section and content) DATE CREATED AUTHOR 11/22/2017 [facility] Healthcare DATE CREATED AUTHOR AUTHOR'S ORGANIZ ATION 11/05/2022 [facility] DATE CREATED AUTHOR AUTHOR'S ORGANIZ ATION 09/10/2023 [facility] DATE CREATED AUTHOR AUTHOR'S ORGANIZ ATION 10/31/2023 [facility] EPIC DATE CREATED AUTHOR AUTHOR'S ORGANIZ ATION 11/04/2023 [facility] Care Team (unrecognized sect ion and content) Personnel Name: Marli Gaffney MD Address: [address] [place] [address]. [address] [place] [address] Name: Aleta Macile Name: Chikis Richardson Personnel Name: Marli Gaffney MD Address: [address] [place] [address]. [address] Name: Aleta Maciel Name: Chikis Richardson Personnel Name: Marli Gaffney MD Address: [address] [place] [address]. [address] Name: Aleta Maciel Name: Chikis Richardson Personnel Name: Marli Gaffney MD Address: [address] [place] [address]. [address] Name: Aleta Maciel Name: Chikis Richardson Personnel Name: Marli Gaffney MD Address: [address] [place] [address]. [address] Name: Aleta Maciel Name: Chikis Richardson Personnel Name: Marli Gaffney MD Address: [address] [place] [address]. [address] Name: Aleta Maciel Name: Chikis Richardson Personnel Name: Marli Gaffney MD Address: Address: [address] [place] [address]. [place] [address] Name: Aleta Maciel Name: Chikis Richardson Personnel Name: Marli Gaffney MD Address: Address: [address] [place] [address]. [place] [address] Name: Aleta Maciel Name: Chikis Richardson Personnel Name: Marli Gaffney MD Address: Address: [address] [place] [address]. [place] [address] Name: Aleta Maciel Name: Chikis Richardson Personnel Name: Marli Gaffney MD Address: Address: [address] [place] [address]. [address] Name: Aleta Maciel Name: Chikis Richardson Personnel Name: Marli Gaffney MD Address: Address: [address] [place] [address]. [place] [address] Name: Aleta Maciel Name: Chikis Richardson Personnel Name: Marli Gaffney MD Address: Address: [address] [place] [address]. [place] [address] Name: Aleta Maciel Name: Chikis Richardson Personnel Name: Marli Gaffney MD Address: Address: [address] [place] [address]. [place] [address] Name: Aleta Maciel Name: Chikis Richardson Personnel Name: Marli Gaffney MD Address: Address: [address] [place] [address]. [place] [address] Name: Aleta Maciel Name: Chikis Richardson Personnel Name: Marli Gaffney MD Address: Address: [address] [place] [address]. [place] [address] Name: Aleta Maciel Name: Chikis Richardson Personnel Name: Marli Gaffney MD Address: Address: [address] [place] [address]. [place] [address] Name: Aleta Maciel Name: Chikis Richardson Personnel Name: Marli Gaffney MD Address: Address: [address] [place] [address]. [place] [address] Name: Aleta Maciel Name: Chikis Richardson Personnel Name: Marli Gaffney MD Address: Address: [address] [place] [address]. [place] [address] Name: Aleta Maciel Name: Chikis Richardson Personnel Name: Marli Gaffney MD Address: Address: [address] [place] [address]. [place] [address] Name: Aleta Maciel Name: hCikis Richardson Personnel Name: Marli Gaffney MD Address: Address: [address] [place] [address]. [address] Name: Aleta Maciel Name: Chikis Richardson Personnel Name: Marli Gaffney MD Address: Address: [address] [place] [address]. [place] [address] Name: Aleta Maciel Name: Chikis Richardson Personnel Name: Marli Gaffney MD Address: Address: [address] [place] [address]. [place] [address] Name: Aleta Maciel Name: Chikis Richardson Personnel Name: Marli Gaffney MD Address: Address: [address] [place] [address]. [place] [address] Name: Aleta Maciel Name: Chikis Richardson Personnel Name: Marli Gaffney MD Address: Address: [address] [place] [address]. [place] [address] Name: Aleta Maciel Name: Chikis Richardson Personnel Name: Marli Gaffney MD Address: Address: [address] [place] [address]. [place] [address] Name: Aleta Maciel Name: Chikis Richardson Personnel Name: Marli Gaffney MD Address: Address: [address] [place] [address]. [place] [address] Name: Aleta Maciel Name: Chikis Richardson Personnel Name: Marli Gaffney MD Address: Address: [address] [place] [address]. [address] Name: Aleta Maciel Name: Chikis Richardson Personnel Name: Marli Gaffney MD Address: Address: [address] [place] [address]. [address] Name: Janell Aleta Devante Name: Chikis Richardson Personnel Name: Marli Gaffney MD Address: Address: [address] [place] [address]. [address] Name: Aleta Maciel Name: Chikis Richardson Personnel Name: Marli Gaffney MD Address: Address: [address] [place] [address]. [address] Name: Aleta Maciel Name: Chikis Richardson Personnel Name: Marli Gaffney MD Address: Address: [address] [place] [address]. [address] Name: Sharon Macielissa Devante Name: Chikis Richardson Personnel Name: Marli Gaffney MD Address: Address: [address] [place] [address]. [address] Name: Sharon Macielissa Devante Name: Chikis Richardson Personnel Name: Marli Gaffney MD Address: Address: [address] [place] [address]. [address] Name: Sharon Macielissa Devante Name: Chikis Richardson Source Comments (unrecognize d section and content) In the event this informatio n is protected by the Federal Confidentiality of Alcohol and Drug Abuse Patient Records regulations: The Federal rules restrict any use of the information to criminally investigate or prosecute any alcohol or drug abuse patient.[facility] the event this information is protected by the Federal Confidentiality of Alcohol and Drug Abuse Patient Records regulations: The Federal rules restrict any use of the information to criminally investigate or prosecute any alcohol or drug abuse patient.[facility] Reason for Visit (unrecogniz ed section and [...] BE BASED ON THE PRIMARY CLINICAL RECORDS. [facility]. provides no warranty or guarantee of the accuracy or completeness of information in this document.
[2023-11-28 08:30] LABS: Chol HDL Ratio 4.5; Cholesterol 174 mg/dL (<=200); HDL Cholesterol 39 mg/dL (40-60); Triglycerides 76 mg/dL (<=150); VLDL CHOLESTEROL 15.2 mg/dL
== END 2023-11-28 07:31 | disposition home or self-care (01) ==
PROVIDERS: Family Provider Family Medicine; PCP Family Medicine; Visit Provider Family Medicine
DX: E78.5 Hyperlipidemia, unspecified (principal); R03.0 Elevated blood-pressure reading, without diagnosis of hypertension
CPT/HCPCS: 36415; 80061; 82947

== ENCOUNTER 2024-07-14 11:57 | Emergency (ER) | payer MEDICARE, SELFPAY ==
--- OUTSIDE RECORDS SUMMARY | 2024-07-14 12:04 | XMS_ITS | CCD ---
Author Organization [facility] Care Team Providers Care Foreign Collection Clerk Name Role Phone ARMANDO CORONADO Unavailable Unavailable [...] [trazodone] Drug Allergy Sleep terror disorder (disorder) [facility] (20 sources) traZODone; Translations: [trazodone] Drug Allergy Sleep terror disorder (disorder) [facility] Medications Current Medications Medication Drug Class(es) [...] TID, # 90 tab(s), Refills(s) 11, Pharmacy: [facility], 175, cm, 10/13/22 10:32:00 EDT, Height/Length [...] q12hr, # 10 cap(s), Refills(s) 0, Pharmacy: [facility], 175, cm, 12/30/20 15:19:00 EDT, Height/Length [...] take 500 mg by mouth once daily Roslyn-3 Fish Oil 500 mg, Oral, Daily, Prophylaxis [...] BID, # 180 cap(s), Refills(s) 3, Pharmacy: [facility], 176, cm, 08/08/23 14:58:00 EDT, Height/Length Dosing, 73.5, kg, 08/08/23 14:58:00 EDT, Weight Dosing Start Date: 08/11/23 Status: Ordered Start: 02-03-2023 End: 08-02-2023 take 1 capsule by mouth once daily omeprazole 40 mg Cap-DR 40 mg = 1 cap(s), Oral, Daily, X 90 day(s), # 90 cap(s), Refills(s) 1, Pharmacy: [facility], 175, cm, 12/13/22 11:33:00 EDT, Height/Length Dosing, 70, kg, 12/13/22 11:33:00 EDT, Weight Dosing Start Date: 02/03/23 Stop Date: 08/02/23 Status: Ordered Start: 05-07-2019 End: 01-11-2023 take 1 capsule by mouth once daily omeprazole 40 mg Cap-DR 40 mg, Oral, Daily, # 30 cap(s), Refills(s) 1, Pharmacy: [facility] Start Date: 05/07/19 Status: Ordered omeprazole 40 mg Cap-DR (3 sources) Start: 05-07-2019 take 1 capsule by mouth once daily omeprazole 40 mg Cap-DR 40 mg, Oral, Daily, # 30 cap(s), Refills(s) 1, Pharmacy: [facility] Start Date: 05/07/19 Status: Ordered oxybutynin chloride 5 mg oral tablet (20 sources) Cholinergic Muscarinic Antagonist Start: 02-01-2023 take 1 tablet by mouth three times daily as needed for muscle spasms oxybutynin 5 mg Tab 5 mg = 1 tab(s), Oral, TID, PRN bladder spasms, # 90 tab(s), Refills(s) 11, Pharmacy: [facility], 175, cm, 12/13/22 11:33:00 EDT, Height/Length Dosing, 70, kg, 12/13/22 11:33:00 EDT, Weight Dosing Start Date: 02/01/23 Status: Ordered Start: 07-29-2022 take 1 tablet by jacobo th three times daily as needed for muscle spasms oxybutynin 5 mg Tab 5 mg = 1 tab(s), Oral, TID, PRN bladder spasms, # 90 tab(s), Refills(s) 3, Pharmacy: [facility], 175, cm, 07/14/22 8:58:00 EST, Height/Length Dosing, 70, kg, 07/14/22 8:58:00 EST, Weight Dosing Start Date: 07/29/22 Status: Ordered Start: 02-05-2022 take 1 tablet by jacobo th twice daily as needed oxybutynin 5 mg Tab 5 mg = 1 tab(s), Oral, BID, PRN for urinary discomfort, # 60 tab(s), Refills(s) 11, Pharmacy: [facility], 175, cm, 01/27/22 15:27:00 EDT, Height/Length Dosing, 70, kg, 01/27/22 15:27:00 EDT, Weight Dosing Start Date: 02/05/22 Status: Ordered Start: 01-28-2021 take 1 tablet by jacobo th twice daily as needed oxybutynin 5 mg Tab 5 mg = 1 tab(s), Oral, BID, PRN for urinary discomfort, # 60 tab(s), Refills(s) 11, Pharmacy: [facility], 175, cm, 12/30/20 15:19:00 EDT, Height/Length Dosing, 75, kg, 01/01/21 20:55:00 EDT, Weight Dosing Start Date: 01/28/21 Status: Ordered monobasic potassium phosphate 0.0408 meq/ml oral solution (7 sources) Start: 09-02-2021 take 1 tablet by mouth once daily K-Phos Original 500 mg oral tablet 1 tab, Oral, Daily, # 30 tab(s), Refills(s) 11, Pharmacy: [facility], 175, cm, 09/02/21 9:22:00 EDT, Height/Length Dosing, 75, kg, 09/02/21 9:22:00 EDT, Weight Dosing Start Date: 09/02/21 Status: Ordered sulfamethoxazole 800 mg / trimethoprim 160 mg oral tablet (2 sources) Dihydrofolate Reductase Inhibitor Antibacterial, Sulfonamide Antimicrobial Start: 09-20-2023 End: 10-11-2023 Bactrim D.S. 800 mg-160 mg Tab 1 tab(s), Oral, BID for 3 week(s), 42 tab(s), Refill(s) 0, [facility], 175, cm, 09/20/23 9:13:00 EDT, Height/Length [...] BID, # 120 tab(s), Refills(s) 3, Pharmacy: [facility], 176, cm, 08/08/23 14:58:00 EDT, Height/Length Dosing, 73.5, kg, 08/08/23 14:58:00 EDT, Weight Dosing Start Date: 09/15/23 Status: Ordered Start: 09-13-2022 End: 09-08-2023 take 2 tablets by mouth twice daily potassium citrate 15 mEq oral tablet, extended release 30 mEq = 2 tab(s), Oral, BID, X 90 day(s), # 360 tab(s), Refills(s) 3, Pharmacy: [facility], 175, cm, 09/08/22 9:43:00 EDT, Height/Length Dosing, 70, kg, 09/08/22 9:43:00 EDT, Weight Dosing Start Date: 09/13/22 Stop Date: 09/08/23 Status: Ordered Start: 05-25-2022 take 2 tablets by mo ut twice daily potassium citrate 15 mEq oral tablet, extended release 30 mEq = 2 tab(s), Oral, BID, # 120 tab(s), Refills(s) 2, Pharmacy: [facility], 175, cm, 05/20/22 8:59:00 EST, Height/Length Dosing, 70, kg, 05/20/22 8:59:00 EST, Weight Dosing Start Date: 05/25/22 Status: Ordered Start: 01-27-2022 take 2 tablets by [facility] twice daily potassium citrate 15 mEq oral tablet, extended release 30 mEq = 2 tab(s), Oral, BID, # 120 tab(s), Refills(s) 2, Pharmacy: [facility], 175, cm, 01/27/22 15:27:00 EDT, Height/Length [...] Vitamins oral tablet) omega-3 polyunsaturated fatty acids (Roslyn-3 Fish Oil) omeprazole (omeprazole 40 mg Cap-DR) [...] Following Appointments Follow Up with Pam FARFANN, BODY TECHNICIAN-C, Kasey X, FAM, URL When: Comments: 7 [...] or concerns Unchanged omega-3 polyunsaturated fatty acids (Roslyn-3 Fish Oil) 500 Milligram By Mouth Every [...] catheter c (more content not included)... Normal [facility] Patient Educationon 10-28-19 24 Patient [...] provider. Document Revised: 08/05/2021 Document Reviewed: 05/01/2021 [employer] Patient Education ? 2021 [employer] Juanita [facility] Urology Office/Clinic Noteon 10-28-2023 Urology [...] Vitamins oral tablet, 1 tab(s), Oral, Daily Roslyn-3 Fish Oil, 500 mg, Oral, Daily omeprazole [...] Daily Allerg (more content not included)... Normal [facility] Comment on above: Result Comment: [...] Locations R1: This test was performed at: [facility], [address] [place] [address], [id number] , , [facility] Comment on above: Performed By: #### 2 [id number] ####[facility] [address] [place] [address] Patient Educationon 09-20-19 24 Patient Education Infectious [...] these instructions at home: Medicines ? Take jeyz-pet-cprjjmp and prescription medicines only as told by [...] Where to find more information ? National Flora of Diabetes and Digestive and Kidney Diseases: (more content not included)... Normal [facility] Urology Office/Clinic Noteon 09-20-2023 Urology [...] with S/P tube changes. Has been changing [id number] (due to kind of tubing) History of Present Illness I have reviewed and verified the staff HPI to be accurate for this encounter. Portions of this record may have been created with voice recognition artificial intelligence software, specifically WonderHowTo, [employer] and or PharmAssistant. Substitutions may have occurred due to the [...] 3 week(s), 42 tab(s), Refill(s) 0, [facility], 175, cm, 09/20/23 9:13:00 EDT, Height/Length [...] Cystoscopy (06/26/ (more content not included)... Normal [facility] Comment on above: Result Comment: Elec tronically Signed By: SURYA Orozco APRN, [place] X\.br\Date and Time Signed: 09/20/23 10:05 EDT Jim 08-22-2023 [place] Telephone ([facility]) ---- FLORA CHANDRA ([id number]) 1960 M Date Time Provider Department 08/22/23 CHERYL SY [facility] During your visit today, we recorded the [...] Encounter Status:Closed by LIUDMILA GORE on 09/09/23 [facility] CNPNon 08-19-2023 CNPN Telephone ([facility]) ---- FLORA CHANDRA ([id number]) 1960 M Date Time Provider Department 08/19/23 CHERYL SY [facility] During your visit today, we recorded the following information about you: Neli Encarnacion 08/19/2023 2:08 PM Signed Received referral from [facility] and it was scanned in to chart. This is a new pt and requires continue patient registration when they call back. There is a referral for manometry and I LVM to have them give us a call back to schedule. I tried calling [facility] to verify contact information of pt. Called on 08/10 and 08/18. Allergies As of Date: 08/19/2023 (Not on File) Date Reviewed: Never Reviewed Reason for Visit: Received Outside Medical Records [[id number]] Problem List As Of Date: 08/19/2023 (None) Encounter Status:Closed by NELI ENCARNACION on 08/19/23 [facility] Physician Referralon 024 Physician Referral [id number] 40#1.00TIFF [facility] Retail - Clinical Noteon Retail - Clinical Note [id number] C9#1.00TIFF [facility] Ambulatory Visit Summaryon 0 08-08-2023 Ambulatory Visit [...] Vitamins oral tablet) omega-3 polyunsaturated fatty acids (Roslyn-3 Fish Oil) oxybutynin (oxybutynin 5 mg Tab) [...] ISABEL KEARNEY PA-C Where: [facility] Invalid Interpretation Code Acid reflux [facility] Gastroenterology Office/Clin ic Noteon 08-08-2023 [...] esophagus (K22.70: Denny's esophagus without dysplasia) Ordered: [facility] External Ambulatory Referral 2. Acid reflux (K21.9: Gastro-esophageal reflux disease without esophagitis) Ordered: [facility] External Ambulatory Referral 3. Anal pain (K62.89: Other specified diseases of anus and rectum) Ordered: [facility] External Ambulatory Referral 4. Altered bowel habits (R19.4: Change in bowel habit) Ordered: [facility] External Ambulatory Referral 5. Pelvic floor dysfunction [...] inq. h (more content not included)... Normal [facility] Comment on above: Result Comment: Elec tronically Signed By: Rick ZHENG, Yoel Lara.candace\Date and Time Signed: 08/08/23 15:43 EDT Retail - Clinical Noteon Retail - Clinical Note [id number] ED#1.00TIFF Normal [facility] Ambulatory Visit Summaryon 1 07-18-2022 [...] Vitamins oral tablet) omega-3 polyunsaturated fatty acids (Roslyn-3 Fish Oil) omeprazole (omeprazole 40 mg Cap-DR) [...] ISABEL KEARNEY PA-C Where: [facility] Ambulatory Visit Summaryon 1 Ambulatory Visit Summary [...] Vitamins oral tablet) omega-3 polyunsaturated fatty acids (Roslyn-3 Fish Oil) omeprazole (omeprazole 40 mg Cap-DR) [...] 9:00 AM EST Where: [facility] Patient Educationon -31-20 23 Patient Education Urology [...] and water are not available, use hand assistant professor of biology. ? Disconnect the bag from the catheter and immediately attach a new bag to the catheter. ? Empty the used bag completely. ? Clean the used bag according to the millinery designer's instructions, or as told by your health care provider. ? Let the bag dry completely, and put it in a clean plastic bag before storing it. General instructions ? Always wash your hands before and after caring for your catheter and collection bag. Use soap and water. If soap and water are not available, use hand assistant professor of biology. ? Always make sure there are no [...] have (more content not included)... Normal [facility] Urology Office/Clinic Noteon 03-29-2023 Urology Office/Clinic [...] other specified devices) Last change 02/07/23 at [facility] ER. The SP tube has been [...] Contact Information CAIO MAJOR, ISABEL Rodriguez, URL [address] [address] [phone] Additional Instructions: 3-4wk for SP tube change [...] spasms BPH with urinary obstruction Chronic indwelling Crmu catheter Colitis Dysuria Gross hematuria History of [...] Nature's Bounty Probiotic, 1 tab(s), Oral, Daily Roslyn-3 Fish Oil, 500 mg, Oral, Daily omeprazole [...] Daily All (more content not included)... Normal [facility] Comment on above: Result Comment: [...] Vitamins oral tablet) omega-3 polyunsaturated fatty acids (Roslyn-3 Fish Oil) omeprazole (omeprazole 40 mg Cap-DR) [...] Every day Unchanged omega-3 polyunsaturated fatty acids (Roslyn-3 Fish Oil) 500 Milligram By Mouth Every [...] pain Glaucoma Hydrocele Swollen testicle Vomiting Normal [facility] Ambulatory Visit Summaryon 0 12-13-2022 [...] Vitamins oral tablet) omega-3 polyunsaturated fatty acids (Roslyn-3 Fish Oil) omeprazole (omeprazole 40 mg Cap-DR) [...] ISABEL KEARNEY PA-C Where: [facility] Patient Educationon 12-14-19 Patient Education [...] health care provider. General instructions ? Take lfyh-eeo-rtksyoi and prescription medicines only as told by [...] monitor yo (more content not included)... Normal [facility] Urology Office/Clinic Noteon 12-13-2022 Urology [...] Bruce Mina, URL In [address] [place] [address]- Additional Instructions: S/P Catheter Change Patient Education Overactive Bladder, Adult I, Lynne Arredondo, personally scribed for Dr. Nugent on 12/13/2022 12:02:54. . Documentation recorded by the scribeLynne, accurately reflects the services(s) I performed and decisions made by me. Authenticated by Dr. Nugent on 12/13/2022 17:36:56. Portions of this record may have been created with voice recognition artificial intelligence software, specifically WonderHowTo, [employer]intecMedia and or PharmAssistant. Substitutions may have occurred due to the [...] Nature's Bounty Probiotic, 1 tab(s), Oral, Daily Roslyn-3 Fish Oil, 500 mg, Oral, Da (more content not included)... Normal [facility] Comment on above: Result Comment: [...] Vitamins oral tablet) omega-3 polyunsaturated fatty acids (Roslyn-3 Fish Oil) omeprazole (omeprazole 40 mg Cap-DR) [...] Appointments Tuesday 10:15 AM EDT With: Bruce UNGENT MD Where: [facility] Patient Educationon 11-16-19 23 Patient Education Urology [...] ? Secure the leg bag according to millinery designer's instructions. This may be above or below [...] on each side. Do this in a aqeyi-st-frbj direction. ? If you are male: ? [...] Clean the drainage bag according to the millinery designer's instructions or as told by your health [...] getting (more content not included)... Normal [facility] Urology Office/Clinic Noteon 11-15-2022 Urology Office/Clinic [...] past 3 weeks after the large 24 Japanese silicone catheter was utilized. We replaced that [...] with voice recognition artificial intelligence software, specifically WonderHowTo, [employer] and or PharmAssistant. Substitutions may have occurred due to the [...] scalp (03/25 (more content not included)... Normal [facility] Comment on above: Result Comment: [...] - 7.8 gm/dL [facility] Remisol HEMATOLOGYOrdered By: fg micro[employer] SYSTEM on 09-08-2022 Basophils/100 WBC (Bld) 1.0 [...] 5.2 E9/L Normal 4.0 - 11.0 E9/L [facility] HemeAutoSS MAGNESIUMon 07-21-2022 Magnesium [Mass/Vol] 2.1 mg/dL Normal 1.8-2.4 [facility] Comment on above: Performed By: #### Devante Mccloud, BMP #### [facility] [address] [place] [address] Dr. Geraldine Welch PROF CHEM 8 (BAS METB)on Anion gap [Moles/Vol] 8.1 mmol/L Normal [facility] Comment on above: Performed By: #### Devante Mccloud, BMP #### [facility] [address] [place] [address] Dr. Geraldine Welch Calcium [Mass/Vol] 9.7 mg/dL Normal 8.5-10.1 [facility] Comment on above: Performed By: #### Devante Mccloud, BMP #### [facility] [address] [place] [address] Dr. Geraldine Welch Chloride [Moles/Vol] 102 mmol/L Normal 98-107 [facility] Comment on above: Performed By: #### Devante Mccloud, BMP #### [facility] [address] [place] [address] Dr. Geraldine Welch CO2 [Moles/Vol] 30.9 mmol/L Normal 21.0-32.0 [facility] Comment on above: Performed By: #### M G, BMP #### [facility] [address] [place] [address] Dr. Geraldine Welch Creatinine [Mass/Vol] 0.90 mg/dL Normal 0.70-1.30 [facility] Comment on above: Performed By: #### M G, BMP #### [facility] [address] [place] [address] Dr. Geraldine Welch EGFR-AF INDIAN >60 Normal >=60 [facility] Comment on above: Performed By: #### M G, BMP #### [facility] [address] [place] [address] Dr. Geraldine Welch EGFR-NON AF INDIAN >60 Normal >=60 [facility] Comment on above: Performed By: #### M G, BMP #### [facility] [address] [place] [address] Dr. Geraldine Welch Glucose [Mass/Vol] 110 mg/dL Critically high 74-106 T [facility] Comment on above: Performed By: #### M G, BMP #### [facility] [address] [place] [address] Dr. Geraldine Welch Potassium [Moles/Vol] 4.0 mmol/L Normal 3.5-5.1 [facility] Comment on above: Performed By: #### M G, BMP #### [facility] [address] [place] [address] Dr. Geraldine Welch Sodium [Moles/Vol] 137 mmol/L Normal 136-145 [facility] Comment on above: Performed By: #### M G, BMP #### [facility] [address] [place] [address] Dr. Geraldine Welch Urea nitrogen [Mass/Vol] 17.0 mg/dL Normal 7.0-18.0 [facility] Comment on above: Performed By: #### M G, BMP #### [facility] [address] [place] [address] Dr. Geraldine Welch Urea nitrogen/Creatinine [Mass ratio] 18.9 mg/mg Normal [facility] Comment on above: Performed By: #### M G, BMP #### [facility] [address] [address] [address] Geraldine Welch VITAMIN B12on 07-21-2022 Cobalamin (Vitamin B12) [Mass/Vol] 1690.0 pg/mL Critically high 193.0-986.0 [facility] Comment on above: Performed By: #### V ITB12 #### [facility] [address] [address] [address] Geraldine Welch CHEMISTRYOrdered By: SYSTEM SYSTEM [...] 0.9 mg/dL Normal 0.5 - 1.3 mg/dL [facility] Remisol GFR/1.73 sq M.predicted among blacks MDRD (S/P/Bld) [Vol rate/Area] mL/min/1.73 m2 Normal >=59mL/min/1. 73 m2 [facility] Chem S GFR/1.73 sq M.predicted among non-blacks MDRD (S/P/Bld) [Vol rate/Area] mL/min/1.73 m2 Normal >=59mL/min/1. 73 m2 [facility] Chem S Glucose [Mass/Vol] 113 mg/dL Normal 55 - 199 mg/dL [facility] Remisol Potassium [Moles/Vol] 4.0 mmol/L Normal 3.5 - 5.3 mmol/L [facility] Remisol Sodium [Moles/Vol] 133 mmol/L Low 135 - 145 mmol/L [facility] Remisol Urea nitrogen [Mass/Vol] 13 mg/dL Normal 5 - 21 mg/dL [facility] Remisol Urea nitrogen/Creatinine [Mass ratio] 14 mg/mg Normal 10 - 20 [facility] Remisol CHEMISTRYOrdered By: SYSTEM SYSTEM on 01-27-2022 [...] 0.9 mg/dL Normal 0.5 - 1.3 mg/dL [facility] Remisol GFR/1.73 sq M.predicted among blacks MDRD (S/P/Bld) [Vol rate/Area] mL/min/1.73 m2 Normal >=59mL/min/1. 73 m2 [facility] Chem S GFR/1.73 sq M.predicted among non-blacks MDRD (S/P/Bld) [Vol rate/Area] mL/min/1.73 m2 Normal >=59mL/min/1. 73 m2 [facility] Chem S Glucose [Mass/Vol] 102 mg/dL Normal 55 - 199 mg/dL [facility] Remisol Potassium [Moles/Vol] 4.1 mmol/L Normal 3.5 - 5.3 mmol/L [facility] Remisol Sodium [Moles/Vol] 137 mmol/L Normal 135 - 145 mmol/L [facility] Remisol Urea nitrogen [Mass/Vol] 18 mg/dL Normal 5 - 21 mg/dL [facility] Remisol Urea nitrogen/Creatinine [Mass ratio] 20 mg/mg Normal 10 - 20 [facility] Remisol CHEMISTRYOrdered By: SYSTEM SYSTEM on 11-18-2021 Prostate specific Ag [Mass/Vol] 0.8 ng/mL Normal 0.1 - 3.5 ng/mL [facility] Remisol Vital Signs Date Time Vital Sign Value Performing Clinician Facility 09-20-2023 09:10-0400 Blood Pressure Location [employer] [facility] 09-20-2023 09:10-0400 Diastolic blood pressure 80 mm[Hg] [employer] [facility] 09-20-2023 09:10-0400 Heart rate 84 /min [employer] [facility] 09-20-2023 09:10-0400 Respiratory rate 16 /min [employer] [facility] 09-20-2023 09:10-0400 Systolic blood pressure 138 mm[Hg] [employer] [facility] 08-08-2023 14:54-0400 Blood Pressure Location Mohamad Mouchli [facility] 08-08-2023 14:54-0400 Diastolic blood pressure 81 mm[Hg] Mohamad Mouchli [facility] 08-08-2023 14:54-0400 Heart rate 71 /min Mohamad Mouchli [facility] 08-08-2023 14:54-0400 Respiratory rate 16 /min Mohamad Mouchli [facility] 08-08-2023 14:54-0400 Systolic blood pressure 134 mm[Hg] Mohamad Mouchli [facility] 03-29-2023 08:25-0400 Blood Pressure Location ISABEL CAIO [facility] 03-29-2023 08:25-0400 Diastolic blood pressure 78 mm[Hg] ISABEL CAIO [facility] 03-29-2023 08:25-0400 Heart rate 80 /min ISABEL CAIO [facility] 03-29-2023 08:25-0400 Respiratory rate 16 /min ISABEL CAIO [facility] 03-29-2023 08:25-0400 Systolic blood pressure 132 mm[Hg] ISABEL CAIO [facility] 09-28-2022 10:25-0400 Blood Pressure Location Bruce NUGENT [facility] 09-28-2022 10:25-0400 Diastolic blood pressure 95 mm[Hg] Bruce COOK [facility] 09-28-2022 10:25-0400 Heart rate 102 /min Burce COOK [facility] 09-28-2022 10:25-0400 Systolic blood pressure 140 mm[Hg] Bruce COOK [facility] 09-08-2022 09:42-0400 Blood Pressure Location Bruce COOK [facility] 09-08-2022 09:42-0400 Diastolic blood pressure 85 mm[Hg] Bruce COOK [facility] 09-08-2022 09:42-0400 Systolic blood pressure 140 mm[Hg] Bruce COOK [facility] 06-16-2022 08:58-0500 Blood Pressure Location Bruce COOK [facility] 06-16-2022 08:58-0500 Diastolic blood pressure 87 mm[Hg] Bruce COOK [facility] 06-16-2022 08:58-0500 Heart rate 89 /min Bruce COOK [facility] 06-16-2022 08:58-0500 Respiratory rate 16 /min Bruce COOK [facility] 06-16-2022 08:58-0500 Systolic blood pressure 146 mm[Hg] Bruce COOK [facility] 05-20-2022 08:54-0500 Blood Pressure Location Gemma Garner [facility] 05-20-2022 08:54-0500 Diastolic blood pressure 82 mm[Hg] Gemma Garner [facility] 05-20-2022 08:54-0500 Heart rate 96 /min Gemma Garner [facility] 05-20-2022 08:54-0500 Systolic blood pressure 140 mm[Hg] Gemma Garner [facility] 05-07-2022 15:00-0500 Diastolic blood pressure 78 mm[Hg] Butcher SALAM [facility] 05-07-2022 15:00-0500 Heart rate 65 /min Butcher SALAM [facility] 05-07-2022 15:00-0500 Respiratory rate 23 /min Butcher SALAM [facility] 05-07-2022 15:00-0500 Systolic blood pressure 115 mm[Hg] Butcher SALAM [facility] 05-07-2022 14:45-0500 Diastolic blood pressure 70 mm[Hg] Butcher SALAM [facility] 05-07-2022 14:45-0500 Heart rate 67 /min Butcher SALAM [facility] 05-07-2022 14:45-0500 Respiratory rate 13 /min Butcher SALAM [facility] 05-07-2022 14:45-0500 SaO2% (BldA) [Mass fraction] 98 % Butcher SALAM [facility] 05-07-2022 14:45-0500 Systolic blood pressure 109 mm[Hg] Butcher SALAM [facility] 05-07-2022 14:30-0500 Diastolic blood pressure 80 mm[Hg] Butcher SALAM [facility] 05-07-2022 14:30-0500 Heart rate 71 /min Butcher SALAM [facility] 05-07-2022 14:30-0500 Respiratory rate 22 /min Butcher SALAM [facility] 05-07-2022 14:30-0500 SaO2% (BldA) [Mass fraction] 97 % Butcher SALAM [facility] 05-07-2022 14:30-0500 Systolic blood pressure 120 mm[Hg] Butcher SALAM [facility] 05-07-2022 14:20-0500 Body temperature 97.88 [degF] Butcher SALAM [facility] 05-07-2022 14:18-0500 Body temperature 97.7 [degF] Butcher SALAM [facility] 05-07-2022 13:35-0500 Blood Pressure Location Butcher SALAM [facility] 05-07-2022 13:35-0500 Body temperature 97.7 [degF] Butcher SALAM [facility] 04-20-2022 10:28-0500 Diastolic blood pressure 84 mm[Hg] Nubiaeda BriceñoAlix [facility] 04-20-2022 10:28-0500 Mean blood pressure 101 mm[Hg] Nubia Alix [facility] 04-20-2022 10:28-0500 Systolic blood pressure 136 mm[Hg] Nubia Alix [facility] 04-20-2022 10:25-0500 Blood Pressure Location Nubia Thomson [facility] 04-20-2022 10:25-0500 Body temperature 98.06 [degF] Nubia Briceñometz [facility] 04-20-2022 10:25-0500 Diastolic blood pressure 91 mm[Hg] Nubia Briceñometz [facility] 04-20-2022 10:25-0500 Heart rate 85 /min Nubia Thomson [facility] 04-20-2022 10:25-0500 Systolic blood pressure 144 mm[Hg] Nubia Thomson [facility] 03-25-2022 08:06-0400 Blood Pressure Location Gemma Garner [facility] 03-25-2022 08:06-0400 Diastolic blood pressure 95 mm[Hg] Gemma Garner [facility] 03-25-2022 08:06-0400 Heart rate 89 /min Gemma Garner [facility] 03-25-2022 08:06-0400 Systolic blood pressure 141 mm[Hg] Gemma Garner [facility] 02-25-2022 08:10-0400 Blood Pressure Location Gemma Carpios [facility] 02-25-2022 08:10-0400 Diastolic blood pressure 92 mm[Hg] Gemma Garner [facility] 02-25-2022 08:10-0400 Heart rate 81 /min Gemma Garner [facility] 02-25-2022 08:10-0400 Systolic blood pressure 118 mm[Hg] Gemma Garner [facility] 09-02-2021 09:13-0400 Blood Pressure Location Bruce Alset Wellen [facility] 09-02-2021 09:13-0400 Diastolic blood pressure 90 mm[Hg] Bruce Alset Wellen [facility] 09-02-2021 09:13-0400 Heart rate 112 /min Bruce Alset Wellen [facility] [employer] 09-02-2021 09:13-0400 Respiratory rate 16 /min Bruce Alset Wellen [facility] 09-02-2021 09:13-0400 Systolic blood pressure 138 mm[Hg] Bruce Alset Wellen [facility] [employer] Encounters Encounter Date Encounter Type Care Provider Facility Start: 11-01-2023 End: 11-01-2023 ambulatory Kasey X Orzech Facility:[facility] Start: 11-01-2023 End: 11-01-2023 Patient encounter procedure Kasey X Orzech [facility] Start: 10-31-2023 End: 10-31-2023 ambulatory JV Eda EVELIO Not Available Start: 10-28-2023 End: 10-28-2023 ambulatory Kasey X Orzech Facility:[facility] Start: 10-28-2023 End: 10-28-2023 Patient encounter procedure Kasey X Orzech [facility] Start: 09-20-2023 End: 09-20-2023 Lab Drop off Kasey X Orzech [facility] Start: 09-20-2023 End: 09-20-2023 ambulatory Kasey X Orzech Facility:[facility] Start: 09-20-2023 End: 09-20-2023 Patient encounter procedure Kasey X Orzech [facility] Start: 08-23-2023 End: 08-23-2023 ambulatory PA-C ISABEL KEARNEY Facility:[facility] Start: 08-23-2023 End: 08-23-2023 Patient encounter procedure ISABEL KEARNEY [facility] Start: 08-22-2023 Telephone encounter Cheryl Sy APRN.BANK ADVISOR Work Phone: Colorectal Surgery Start: 08-19-2023 Telephone encounter Cheryl Sy APRN.BANK ADVISOR Work Phone: Colorectal Surgery Comment on above: Received Outside [facility] Records Start: 08-08-2023 End: 08-08-2023 ambulatory Yoel Cabrera Facility:[facility] Start: 08-08-2023 End: 08-08-2023 Patient encounter procedure Yoel Cabrera [facility] Start: 05-17-2023 End: 05-17-2023 ambulatory PA-C ISABEL KEARNEY Facility:[facility] Start: 05-17-2023 End: 05-17-2023 Patient encounter procedure ISABEL KEARNEY [facility] Start: 04-27-2023 End: 04-27-2023 ambulatory Luisja MARTINEZ Facility:[facility] [place] Start: 04-27-2023 End: 04-27-2023 Patient encounter procedure Luis MARTINEZ [facility] [place] Start: 04-26-2023 End: 04-26-2023 ambulatory PA-C ISABEL KEARNEY [place] [place] Start: 04-26-2023 End: 04-26-2023 Patient encounter procedure ISABEL RAHMANRY [facility] Start: 03-29-2023 End: 03-29-2023 ambulatory PA-C ISABEL Jennifer KEARNEY Facility:[facility] [place] Start: 03-29-2023 End: 03-29-2023 Patient encounter procedure ISABEL KEARNEY [facility] [place] Start: 03-03-2023 End: 03-03-2023 ambulatory PA-C ISABEL Jennifer CAIO Facility:[facility] [place] Start: 01-12-2023 End: 01-12-2023 ambulatory PA-C ISABEL Jennifer CAIO Facility:[facility] [place] Start: 01-12-2023 End: 01-12-2023 Patient encounter procedure ISABEL KEARNEY [facility] [place] Start: 12-13-2022 End: 12-13-2022 ambulatory Bruce NUGENT Facility:[facility] [place] Start: 12-13-2022 End: 12-13-2022 Patient encounter procedure Bruce NUGENT [facility] [place] Start: 11-15-2022 End: 11-15-2022 ambulatory Bruce NUGENT Facility:[facility] [place] Start: 11-15-2022 End: 11-15-2022 Patient encounter procedure Bruce NUGENT [facility] [place] Start: 10-25-2022 End: 10-26-[address] WESTON Mckeon Facility: Start: 09-28-2022 End: 09-28-2022 Patient encounter procedure Bruce NUGENT [facility] [place] Start: 09-13-2022 End: 09-13-2022 Patient encounter procedure Marli Gaffney [facility] Start: 09-08-2022 End: 09-08-2022 Patient encounter procedure Bruce NUGENT [facility] [place] Start: 08-16-2022 End: 08-16-2022 Patient encounter procedure Marli Gaffney [facility] Start: 07-21-2022 End: 07-22-[address] DOCTOR KARIMI Facility: Start: 07-14-2022 End: 07-14-2022 Patient encounter procedure Bruce NUGENT [facility] [place] Start: 06-16-2022 End: 06-16-2022 Lab Drop off Bruce NUGENT [facility] Start: 06-16-2022 End: 06-16-2022 Patient encounter procedure Bruce NUGENT [facility] [place] Start: 06-09-2022 End: 06-09-2022 Patient encounter procedure Abiliofelice Martinez Ohlman [facility] Start: 05-20-2022 End: 05-20-2022 Patient encounter procedure Gemma Martinez Patsy [facility] Start: 05-07-2022 End: 05-07-2022 Patient encounter procedure Guadalupe BRITTON [facility] Start: 04-20-2022 End: 04-20-2022 Patient encounter procedure Nubia Martinez Alix [facility] Start: 03-25-2022 End: 03-25-2022 Patient encounter procedure Indianajennifer Martinez Patsy [facility] Start: 03-19-2022 End: 03-19-2022 Patient encounter procedure Abiliofelice Martinez Patsy [facility] Start: 02-25-2022 End: 02-25-2022 Patient encounter procedure Indianajennifer Martinez Patsy [facility] Start: 01-27-2022 End: 01-27-2022 Patient encounter procedure Indianajennifer Martinez Patsy [facility] Start: 01-11-2022 End: 01-11-2022 Patient encounter procedure Gemma Michelle Patsy [facility] Start: 12-23-2021 End: 12-23-2021 Patient encounter procedure Bruce NUGENT [facility] Start: 11-25-2021 End: 11-25-2021 Patient encounter procedure Bruce NUGENT [facility] Start: 11-18-2021 End: 11-18-2021 Patient encounter procedure Bruce NUGENT [facility] Start: 10-28-2021 End: 10-28-2021 Patient encounter procedure Bruce NUGENT [facility] Start: 09-30-2021 End: 09-30-2021 Patient encounter procedure Bruce NUGENT [facility] Start: 09-02-2021 End: 09-02-2021 Patient encounter procedure Bruce NUGENT [facility] Start: 04-15-2017 Ambulatory ARMANDO Mccloud CORONADO Facility: 8 Start: 03-18-2017 Ambulatory ARMANDO CORONADO Facility: 8 Procedures Date Procedure Procedure Detail Performing Clinician Start: 07-23-2020 Cystoscopy Bruce NUGENT Start: 06-12-2020 Cystoscopic removal of ureteric stent Brucerosalinda NUGENT Start: 05-22-2020 Change of urethral catheter Bruce NUGENT Start: 05-22-2020 Extracorporeal shockwave lithotripsy of calculus of kidney Bruce NUGENT Start: 04-13-2020 Cystoscopy Brucerosailnda NUGENT Comment on above: cystoscopy,right retrograde pyelogram, [...] Immunization Date Immunization Notes Care Provider [facility] 09-16-2021 zoster vaccine recombinant Nubia Thomson [facility] 05-03-2021 influenza virus vaccine, unspecified formulation Nubia Briceñometz [facility] 05-03-2021 SARS-CoV-2 (COVID-19 ) mRNA BNT-162b2 vax Nubia Briceñometz [facility] 03-08-2021 zoster vaccine recombinant Nubia Thomson [facility] 09-09-2020 SARS-CoV-2 (COVID-19 ) mRNA BNT-162b2 vax Bruce NUGENT [facility] 08-20-2020 SARS-CoV-2 (COVID-19 ) mRNA BNT-162b2 vax Bruce NUGENT [facility] 05-27-2017 influenza virus vaccine, unspecified formulation Nubiaeda BriceñoAlix [facility] 03-17-2016 influenza virus vaccine, unspecified formulation Nubiaeda BriceñoAlix [facility] 03-25-2014 influenza, seasonal, injectable Bruce NUGENT [facility] 11-24-2010 tetanus toxoid, reduced diphtheria toxoid, and acellular pertussis vaccine, adsorbed Bruce NUGENT [facility] NEGATED: Highlighted row has not occurred!04-20-2022 influenza virus vaccine, unspecified formulation Nubia Thomson [facility] Payers Date Payer Category Payer Unknown [id number] 2.16.84 [id number] 1960 Unknown [id number] 2.16.84 [id number] 1960 Unknown [id number] 2.16.84 [id number] 1962 Unknown [id number] 2.16.8 [id number] 1962 Unknown [id number] 2.16.8 40.1.328991.3.579.2.727 1962 Unknown [id number] 2.16.8 40.1.081419.3.579.2.727 1962 Unknown [id number] 2.16.8 40.1.153096.3.579.2.727 1962 Unknown [id number] 2.16.8 40.1.030749.3.579.2.727 1962 Unknown [id number] 2.16.8 40.1.261345.3.579.2.72 1962 Unknown [id number] 2.16.8 40.1.552127.3.579.2.727 1962 Unknown [id number] 2.16.8 40.1.882331.3.579.2.727 1962 Unknown [id number] 2.16.8 40.1.340571.3.579.2.727 1962 Unknown [id number] 2.16.8 40.1.939581.3.579.2.727 1962 Unknown [id number] 2.16.8 40.1.811049.3.579.2.727 1962 Unknown [id number] 2.16.8 40.1.583683.3.579.2.727 1962 Unknown [id number] 2.16.8 40.1.353496.3.579.2.727 1962 Unknown [id number] 2.16.8 40.1.189517.3.579.2.727 1960 Unknown [id number] 2.16.8 [id number] 1957 Medicare [id number] Unknown [id number] Unknown [id number] Social History Date Type Detail Facility Start: 08-05-2021 End: 09-20-2023 Tobacco smoking status Never smoked tobacco (finding) [facility] Comment on above: denies Tobacco smoking status Never [facility] Comment on above: denies Sex Assigned At Male [facility] Tobacco smoking status MAIS Tobacco smoking consumption unknown [facility] Start: 1960 Sex Assigned At Not on file C [facility] Medical Equipment Procedure Code Equipment Code Equipment Origin al Text Equipment Identifier Dates [id number] [facility] Start: 04-13-2020 Functional Status Date Assessment Result Facility 10-28-2023 Functional Status N/A [facility] 09-20-2023 Functional Status N/A [facility] 08-08-2023 Functional Status N/A [facility] 03-29-2023 Functional Status N/A [facility] 12-13-2022 Functional Status N/A [facility] 11-15-2022 Functional Status N/A [facility] 09-28-2022 Functional Status N/A [facility] 09-08-2022 Functional Status N/A [facility] 07-14-2022 Functional Status N/A [facility] 06-16-2022 Functional Status N/A [facility] 05-20-2022 Functional Status N/A [facility] 05-07-2022 Functional Status N/A [facility] 04-20-2022 Functional Status N/A [facility] 03-25-2022 Functional Status N/A [facility] 02-25-2022 Functional Status N/A [facility] 01-11-2022 N/A [facility] 12-23-2021 Functional Status N/A [facility] 11-25-2021 Functional Status N/A [facility] Clinical Notes 09-02-2021 to 10-28-2023 Telephone [...] provider. Document Revised: 08/05/2021 Document Reviewed: 05/01/2021 [employer] Patient Education 2021 [employer]. Follow Up Care 10/28/2023 11:42:13 With:SURYA Orozco APRN, JET Dexter, URL Address: When: Unknown Comments:7 mos [facility] 09-20-2023 Hospital Discharg e instructions Patient [...] Follow these instructions at home: Medicines Take rrsp-xgs-ikfhjwn and prescription medicines only as told by [...] important. Where to find more information National [employer]ora of Diabetes and Digestive and Kidney Diseases: [...] depends on the type of prostatitis. Take jxqr-imw-akwkxmv and prescription medicines only as told by [...] provider. Document Revised: 06/20/2020 Document Reviewed: 06/20/2020 [employer] Patient Education 2022 [employer]. Follow Up Care 08/23/2023 12:53:15 With:SURYA Orozco APRN, JET Dexter, URL Address: When: Unknown Comments:5 to 6 weeks for recheck [facility] 08-22-2023 Miscellaneous Notes Left detailed VM offering scheduling assistance for Manometry with consultation with Provider Cheryl Sy CNP. Dr. Cabrera referring. Thank you. Liudmila Desai documented in this encounter [facility] 08-19-2023 Miscellaneous Notes Received referral from [facility] and it was scanned in to chart. This is a new pt and requires continue patient registration when they call back. There is a referral for manometry and I LVM to have them give us a call back to schedule. I tried calling [facility] to verify contact information of pt. Called on 08/10 and 08/18. documented in this encounter [facility] 03-29-2023 Hospital Discharg e instructions Patient Education [...] and water are not available, use hand assistant professor of biology. Disconnect the bag from the catheter and immediately attach a new bag to the catheter. Empty the used bag completely. Clean the used bag according to the millinery designer's instructions, or as told by your health care provider. Let the bag dry completely, and put it in a clean plastic bag before storing it. General instructions Always wash your hands before and after caring for your catheter and collection bag. Use soap and water. If soap and water are not available, use hand assistant professor of biology. Always make sure there are no leaks [...] provider. Document Revised: 03/23/2022 Document Reviewed: 03/23/2022 [employer] Patient Education 2022 [employer]. Follow Up Care 01/24/2023 13:27:19 With:CAIO MAJOR, ISABEL Rodriguez, URL Address: [address] [place] [address] [facility] [place] [address] [phone] When: Unknown Comments:3-4wk for SP tube change [facility] 12-13-2022 Hospital Discharg e instructions Patient Education [...] your health care provider. General instructions Take tjgy-puv-gbhsefc and prescription medicines only as told by [...] Document Reviewed: 02/02/2021 Elsevier Patient Education 2022 [employer]. Follow Up Care 11/15/2022 10:25:35 With:RAFFI ZHENG, Bruce Mina, URL Address: [address] [place] [id number]- When:Within 4 Week(s) Comments:S/P Catheter Change [facility] 11-15-2022 Hospital Discharg e instructions [...] bag. Secure the leg bag according to millinery designer's instructions. This may be above or below [...] on each side. Do this in a yxhtm-nu-eyke direction. ?If you are male: ?Use one [...] Clean the drainage bag according to the millinery designer's instructions or as told by your health [...] and water are not available, use hand assistant professor of biology. Always make sure there are no twists, [...] provider. Document Revised: 01/14/2022 Document Reviewed: 01/14/2022 [employer] Patient Education 2022 [employer]key. Follow Up Care 09/08/2022 10:24:23 With:Bruce NUGENT MD, URL Address: When:Within 3 Week(s) Comments:S/P Catheter Change [facility] [place] 09-28-2022 Hospital Discharg e instructions Follow Up Care 09/28/2022 08:50:32 With:Bruce NUGENT MD, URL Address: [address] [place], [place] [address] [address] [place] [phone]- When: Unknown [facility] 09-08-2022 Hospital Discharg e instructions [...] complications. Follow these instructions at home: Take tydm-xxp-qmpiemd and prescription medicines only as told by [...] 08/22/2001 Document Revised: 04/28/2018 Document Reviewed: 06/17/2017 [employer] Patient Education 2020 Minekey. Follow Up Care 08/11/2022 10:23:42 With:RAFFI ZHENG, Bruce Mina, URL Address: [address] [place] [address] [place] [phone]- When: Unknown [facility] 07-14-2022 Hospital Discharg e instructions Patient [...] complications. Follow these instructions at home: Take zkxj-cri-ttrubwy and prescription medicines only as told by [...] 08/22/2001 Document Revised: 04/28/2018 Document Reviewed: 06/17/2017 [employer] Patient Education 2020 [employer]. Follow Up Care 06/16/2022 09:32:59 With:RAFFI ZHENG, Bruce Mina, URL Address: [address] [place] [address] [place] [phone]- When: Unknown [facility] 06-16-2022 Hospital Discharg e instructions Patient [...] your health care provider. General instructions Take zyqy-lks-vbhviwi and prescription medicines only as told by [...] 11/27/2007 Document Revised: 05/29/2018 Document Reviewed: 05/29/2018 [employer] Patient Education 2020 [employer]. Follow Up Care 04/26/2022 08:23:15 With:RAFFI ZHENG, Bruce Mina, URL Address: [address] [facility] [address] [place], [place] [phone]- When: Unknown [facility] 05-07-2022 Hospital Discharg e instructions Patient Education 05/07/2022 14:28:14 Endoscopy, Care After Procedure [facility] (CUSTOM) Endoscopy Care After Procedure Please read [...] blood. Document Released: 12/28/2004 Document Re-Released: 11/07/2006 [facility] SmartPill. 05/07/2022 14:28:14 Denny's Esophagus Denny's Esophagus Denny's [...] drinks. ?Tomatoes and foods made with tomatoes. ?[place] or spicy foods. ?Chocolate and peppermint. Do not drink alcohol. General instructions Take ibeh-dds-dwvizvv and prescription medicines only as told by [...] 08/05/2004 Document Revised: 09/11/2018 Document Reviewed: 09/11/2018 [employer] Patient Education 2020 [employer]key. Follow Up Care 04/20/2022 10:48:26 With:Guadalupe BRITTON Address: [address] [place] [address]. [address] [place] [address] [facility] (1) When: Unknown Comments:Call for any problems. Office will call to schedule follow up appointment [facility] 05-07-2022 Evaluation + Plan note Extrac raisa from: Title:Post-anesthesia - General Author:Cale Delvalle DO Date:05/07/22 Plan Transfer/ Discharge: Condition stable. Extracted from: Title:Pre-anesthesia - Endoscopy Author:Cale Denny Jr., DO Date:05/07/22 Plan [place] [employer] Anesthesiologists (ASA) physical status classification: Class II. Anesthetic Preoperative Plan Anesthesia: General. . Anesthetic plan, risks, benefits, and alternatives discussed with the patient and/or family. Patient verbalized understanding. Future Appointments Appointment Date:05/20/2022 09:00:00 AM Scheduled Provider:Gemma Solis Location:[facility] Appointment Type:URO Office Visit Appointment Date:06/16/2022 08:45:00 AM Scheduled Provider:Bruce NUGENT MD Location:[facility] Appointment Type:URO Office Visit [facility] Hospital Discharge instructions Patient Education 04/20/2022 10:21:40 [...] drinks. ?Tomatoes and foods made with tomatoes. ?[place] or spicy foods. ?Chocolate and peppermint. Do not drink alcohol. General instructions Take pejf-pxy-khthfdc and prescription medicines only as told by [...] 08/05/2004 Document Revised: 09/11/2018 Document Reviewed: 09/11/2018 [employer] Patient Education 2020 [employer]key. Follow Up Care 03/11/2022 14:15:39 With:Nubia Thomson CNP Address: When:1 to 2 weeks [facility] 10-27-2022 Hospital Discharge instructions [...] complications. Follow these instructions at home: Take xukv-hdp-mhmuovb and prescription medicines only as told by [...] 08/22/2001 Document Revised: 04/28/2018 Document Reviewed: 06/17/2017 [employer] Patient Education 2020 [employer]. Follow Up Care 02/25/2022 08:30:57 With:Gemma Solis, URL Address: When: Unknown [facility] 07-27-2022 Hospital Discharge instructions Patient Education [...] complications. Follow these instructions at home: Take yrlh-qcv-nwfoiof and prescription medicines only as told by [...] 08/22/2001 Document Revised: 04/28/2018 Document Reviewed: 06/17/2017 [employer] Patient Education 2020 [employer]. Follow Up Care 09/02/2021 09:43:58 With:RAFFI ZHENG, Bruce Mina, URL Address: [address] [place], [place] [id number]- When: Unknown [facility] 06-29-2022 Hospital Discharge instructions Patient Education [...] complications. Follow these instructions at home: Take efmw-pyb-wtdmxhu and prescription medicines only as told by [...] 08/22/2001 Document Revised: 04/28/2018 Document Reviewed: 06/17/2017 [employer] Patient Education 2020 [employer]. Follow Up Care 09/02/2021 09:42:34 With:RAFFI ZHENG, Bruce Mina, URL Address: [address] [place], [place] [id number] When:Within 4 Week(s) Comments:S/P tube change [facility] 06-01-2022 Hospital Discharge instructions Patient Education [...] your health care provider. General instructions Take owff-bbg-qnpkree and prescription medicines only as told by [...] 11/27/2007 Document Revised: 05/29/2018 Document Reviewed: 05/29/2018 [employer] Patient Education 2020 [employer]. Follow Up Care 09/02/2021 09:39:40 With:RAFFI ZHENG, Bruce Mina, URL Address: When:11/25/2021 Comments:for S/P catheter change and PSA [facility] 05-04-2022 Hospital Discharge instructions Patient Education [...] 06/25/2017 Document Revised: 09/07/2019 Document Reviewed: 06/25/2017 [employer] Patient Education 2019 [employer]. 09/30/2021 08:59:34 Indwelling Urinary Catheter Insertion Indwelling [...] 06/25/2017 Document Revised: 09/07/2019 Document Reviewed: 06/25/2017 [employer] Patient Education 2020 [employer] Follow Up Care 08/05/2021 11:14:52 With:RAFFI ZHENG, Bruce Mina, URL Address: When: Unknown [facility] 04-06-2022 Hospital Discharge instructions Patient Education [...] your health care provider. General instructions Take fvzm-jxm-yytsyfj and prescription medicines only as told by [...] 11/27/2007 Document Revised: 05/29/2018 Document Reviewed: 05/29/2018 [employer] Patient Education 2020 [employer] Follow Up Care 08/05/2021 11:11:46 With:Bruce NUGENT MD, URL Address: When:09/30/2021 Comments:for S/P catheter change [facility] Evaluation + Plan note Future Appointments Appointment Date:09/30/2021 08:15:00 AM Scheduled Provider:Bruce NUGENT MD Location:[facility] [place] Appointment Type:URO Office Visit Appointment Date:10/28/2021 08:15:00 AM Scheduled Provider:B[facility]UG[facility] MD [facility] Type:[facility] Office Visit Appointment Date:11/25/2021 09:15:00 AM Scheduled Provider:Bruce NUGENT MD [facility] Appoint[facility] Type:URO Office Visit Appointment Date:12/23/2021 09:15:00 AM Scheduled Provider:Bruce NUGENT MD [facility] App[facility] Type:URO Office Visit [facility] Evaluation + Plan note Future Appointments Appointment Date:10/28/2021 08:15:00 AM Scheduled Provider:Bruce NUGENT MD Location:[facility] [place] Appointment Type:URO Office Visit Appointment Date:11/25/2021 09:15:00 AM Scheduled Provider:Bruce NUGENT MD Location:[facility] [place] Appointment Type:URO Office Visit Appointment Date:12/23/2021 09:15:00 AM Scheduled Provider:Bruce NUGENT MD [facility] Appoint[facility] Type:URO Office Visit [facility] Evaluation + Plan note Future Appointments Appointment Date:11/25/2021 09:15:00 AM Scheduled Provider:Bruce NUGENT MD [facility] Appointment Type:URO Office Visit Appointment Date:12/23/2021 09:15:00 AM Scheduled Provider:Bruce NUGENT MD Location:[facility] Appointment Type:URO Office Visit Future Scheduled Tests Laboratory* PSA Total 10/28/21 [facility] Evaluation + Plan note Future Appointments Appointment Date:11/25/2021 09:15:00 AM Scheduled Provider:Bruce NUGENT MD Location:[facility] Appointment Type:URO Office Visit Appointment Date:12/23/2021 09:15:00 AM Scheduled Provider:Bruce NUGENT MD Location:[facility] Appointment Type:URO [facility] Future Appointments Appointment Date:12/23/2021 09:15:00 AM Scheduled Provider:Bruce NUGENT MD Location:[facility] Appointment Type:URO Office Visit [facility] Evina + Plan note Future Appointments Appointment Date:01/21/2022 09:00:00 AM Scheduled Provider:Gemma Solis Location:[facility] Appointment Type:URO Office Visit Appointment Date:02/18/2022 09:00:00 AM Scheduled Provider:Gemma Solis Location:[facility] Appointment Type:URO Office Visit Appointment Date:03/18/2022 09:00:00 AM Scheduled Provider:Gemma Solis Location:[facility] Appointment Type:URO Office Visit [facility] Evina + Plan note Future Appointments Appointment Date:02/08/2022 09:00:00 AM Scheduled Provider:Gemma Solis Location:[facility] Appointment Type:URO Office Visit Appointment Date:03/08/2022 08:00:00 AM Scheduled Provider:Gemma Solis Location:[facility] Appointment Type:URO Office Visit Appointment Date:03/18/2022 09:00:00 AM Scheduled Provider:Gemma Solis Location:[facility] Appointment Type:URO Office Visit [facility] Evaluation + Plan note Future Appointments Appointment Date:02/25/2022 08:00:00 AM Scheduled Provider:Gemma Solis Location:[facility]ments Appointment Date:03/25/2022 08:00:00 AM Scheduled Provider:Gemma Solis Location:[facility] Appointment Type:URO Office Visit Future Scheduled Tests Laboratory* Basic Metabolic Panel 02/25/22 [facility] Evanaation + Plan note Future Appointments Appointment Date:03/25/2022 08:00:00 AM Scheduled Provider:Gemma Solis Location:[facility] Appointment Type:URO Office Visit Appointment Date:04/08/2022 02:00:00 PM Scheduled Provider:Guadalupe BRITTON MD Location:[facility] Appointment Type:BAD [facility] Future Appointments Appointment Date:04/08/2022 02:00:00 PM Scheduled Provider:Guadalupe BRITTON MD Location:[facility] Appointment Type:BADH Follow Up Appointment Date:04/26/2022 08:00:00 AM Scheduled Provider:Gemma Solis Location:[facility] Appointment Type:URO Office Visit Appointment Date:05/20/2022 09:00:00 AM Scheduled Provider:Gemma Solis Location:[facility] Appointment Type:URO Office Visit [facility] Evina + Plan note Future Appointments Appointment Date:04/26/2022 08:00:00 AM Scheduled Provider:Gemma Solis Location:[facility] Appointment Type:URO Office Visit Appointment Date:05/20/2022 09:00:00 AM Scheduled Provider:Gemma Solis Location:[facility] Appointment Type:URO Office Visit Appointment Date:06/21/2022 11:10:00 AM Scheduled Provider: Location:[facility] Appointment Type:Surgery [facility] Evaluation + Plan note Future Appointments Appointment Date:06/16/2022 08:45:00 AM Scheduled Provider:Bruce NUGENT MD Location:[facility] Appointment Type:URO Office Visit Appointment Date:07/15/2022 09:00:00 AM Scheduled Provider:Gemma Solis Location:[facility] Appointment Type:URO Office Visit Future Scheduled Tests Laboratory* Basic Metabolic Panel 05/20/22 [facility] Evaluation + Plan note Future Appointments Appointment Date:06/16/2022 08:45:00 AM Scheduled Provider:Bruce NUGENT MD Location:[facility] Appointment Type:URO Office Visit Appointment Date:07/15/2022 09:00:00 AM Scheduled Provider:Gemma Solis Location:[facility] Appointment Type[facility] Future Appointments Appointment Date:07/14/2022 08:45:00 AM Scheduled Provider:Bruce NUGENT MD Location:[facility] Appointment Type:URO Office Visit [facility] Evaluation + Plan note Future Appointments Appointment Date:07/14/2022 08:45:00 AM Scheduled Provider:Bruce NUGENT MD Location:[facility] Appointment Type:URO Office Visit Diagnostic Tests Pending * Calculi Analysis Urinary [facility] Future Appointments Appointment Date:08/11/2022 09:45:00 AM Scheduled Provider:Bruce NUGENT MD Location:[facility] Appointment Type:URO Office Visit [facility] Evaluation + Plan note Future Appointments Appointment Date:09/08/2022 09:30:00 AM Scheduled Provider:Bruce NUGENT MD Location:[facility] Appointment Type:[facility] Future Appointments Appointment Date:10/05/2022 10:30:00 AM Scheduled Provider:Bruce NUGENT MD Location:[facility] Appointment Type:URO Office Visit [facility] Evaluation + Plan note Future Appointments Appointment Date:11/02/2022 08:30:00 AM Scheduled Provider:Bruce NUGENT MD Location:[facility] Appointment Type:URO Office Visit [facility] Evaluation + Plan note Future Appointments Appointment Date:12/14/2022 10:15:00 AM Scheduled Provider:Bruce NUGENT MD Location:[facility] Appointment Type:URO Office Visit [facility] Evaluation + Plan note Future Appointments Appointment Date:01/13/2023 09:15:00 AM Scheduled Provider:ISABEL KEARNEY PA-C Location:[facility] Appointment Type:URO Office Visit [facility] Evaluation + Plan note Future Appointments Appointment Date:04/26/2023 09:00:00 AM Scheduled Provider: Location:[facility] Appointment Type:URO Nurse Visit [facility] evaluation + Plan note Future Appointments Appointment Date:04/27/2023 09:30:00 AM Scheduled Provider: Location:[facility] Appointment Type:URO Nurse Visit Appointment Date:05/17/2023 09:00:00 AM Scheduled Provider: Location:[facility] Appointment Type:URO Nurse Visit [facility] evaluation + Plan note Future Appointments Appointment Date:05/17/2023 09:00:00 AM Scheduled Provider: Location:[facility] Appointment Type:URO Nurse Visit [facility]i Evaluation + Plan note Future Appointments Appointment Date:08/23/2023 08:30:00 AM Scheduled Provider:ISABEL KEARNEY PA-C Location:[facility] Appointment Type:URO Office Visit [facility] evaluation + Plan note Future Appointments Appointment Date:09/20/2023 09:00:00 AM Scheduled Provider:SURYA Orozco APRN, Kasey X Location:[facility] Appointment Type:URO Office Visit [facility] evaluation + Plan note Future Appointments Appointment Date:11/01/2023 09:00:00 AM Scheduled Provider:SURYA Orozco APRN, Kasey X Location:[facility] Appointment Type:URO Office Visit [facility] evaluation + Plan note Future Appointments Appointment Date:11/01/2023 09:00:00 AM Scheduled Provider:SURYA Orozco APRN, Kasey X Location:[facility] Appointment Type:URO Office Visit Diagnostic Tests Pending * Urine Culture [facility] Narrative No data available for this section [facility] Hospital Discharge instructions No data available for this section [facility] No data available for this section [facility] ([facility]ative) Referred by: Rick ZHENG, Yoel Damico [facility] Summary Purpose Family History [...] section and content) DATE CREATED AUTHOR 11/22/2017 [facility] Healthcare DATE CREATED AUTHOR AUTHOR'S ORGANIZ ATION 11/05/2022 [facility] pital DATE CREATED AUTHOR AUTHOR'S ORGANIZ ATION 09/10/2023 [facility] DATE CREATED AUTHOR AUTHOR'S ORGANIZ ATION 10/31/2023 [facility] EPIC DATE CREATED AUTHOR AUTHOR'S ORGANIZ ATION 11/04/2023 [facility] Care Team (unrecognized sect ion and content) Personnel Name: Marli Gaffney MD Address: [address] [place] [address]. [address] [place] [address] Name: Aleta Maciel Name: Chikis Richardson Personnel Name: Marli Gaffney MD Address: [address] [place] [address]. [address] Name: Aleta Maciel Name: Chikis Richardson Personnel Name: Marli Gaffney MD Address: [address] [place] [address]. [address] Name: Aleta Maciel Name: Chikis Richardson Personnel Name: Marli Gaffney MD Address: [address] [place] [address]. [address] Name: Aleta Maciel Name: Chikis Richardson Personnel Name: Marli Gaffney MD Address: [address] [place] [address]. [address] Name: Aleta Maciel Name: Chikis Richardson Personnel Name: Marli Gaffney MD Address: [address] [place] [address]. [address] Name: Aleta Maciel Name: Chiksi Richardson Personnel Name: Marli Gaffney MD Address: Address: [address] [place] [address]. [place] [address]- Name: Aleta Maciel Name: Chikis Richardson Personnel Name: Marli Gaffney MD Address: Address: [address] [place] [address]. [place] [address]- Name: Aleta Maciel Name: Chikis Richardson Personnel Name: Marli Gaffney MD Address: Address: [address] [place] [address]. [place] [address]- Name: Aleta Maciel Name: Chikis Richardson Personnel Name: Marli Gaffney MD Address: Address: [address] [place] [address]. [address] Name: Aleta Maciel Name: Chikis Richardson Personnel Name: Marli Gaffney MD Address: Address: [address] [place] [address]. [place] [address]- Name: Aleta Maciel Name: Chikis Richardson Personnel Name: Marli Gaffney MD Address: Address: [address] [place] [address]. [place] [address]- Name: Aleta Maciel Name: Chikis Richardson Personnel Name: Marli Gaffney MD Address: Address: [address] [place] [address]. [place] [address]- Name: Aleta Maciel Name: Chikis Richardson Personnel Name: Marli Gaffney MD Address: Address: [address] [place] [address]. [place] [address]- Name: Aleta Maciel Name: Chikis Richardson Personnel Name: Marli Gaffney MD Address: Address: [address] [place] [address]. [place] [address]- Name: Aleta Maciel Name: Chikis Richardson Personnel Name: Marli Gaffney MD Address: Address: [address] [place] [address]. [place] [address]- Name: Aleta Maciel Name: Chikis Richardson Personnel Name: Marli Gaffney MD Address: Address: [address] [place] [address]. [place] [address]- Name: Aleta Maciel Name: Chikis Richardson Personnel Name: Marli Gaffney MD Address: Address: [address] [place] [address]. [place] [address]- Name: Aleta Maciel Name: Chikis Richardson Personnel Name: Marli Gaffney MD Address: Address: [address] [place] [address]. [place] [address]- Name: Aleta Maciel Name: Chikis Richardson Personnel Name: Marli Gaffney MD Address: Address: [address] [place] [address]. [address] Name: Aleta Maciel Name: Chikis Richardson Personnel Name: Marli Gaffney MD Address: Address: [address] [place] [address]. [place] [address]- Name: Aleta Maciel Name: Chikis Richardson Personnel Name: Marli Gaffney MD Address: Address: [address] [place] [address]. [place] [address]- Name: Aleta Maciel Name: Chikis Richardson Personnel Name: Marli Gaffney MD Address: Address: [address] [place] [address]. [place] [address]- Name: Aleta Maciel Name: Chikis Richardson Personnel Name: Marli Gaffney MD Address: Address: [address] [place] [address]. [place] [address]- Name: Aleta Maciel Name: Chikis Richardson Personnel Name: Marli Gaffney MD Address: Address: [address] [place] [address]. [place] [address]- Name: Aleta Maciel Name: Chikis Richardson Personnel Name: Marli Gaffney MD Address: Address: [address] [place] [address]. [place] [address]- Name: Aleta Maciel Name: Chikis Richardson Personnel Name: Marli Gaffney MD Address: Address: [address] [place] [address]. [address] Name: Aleta Maciel Name: Chikis Richardson Personnel Name: Marli Gaffney MD Address: Address: [address] [place] [address]. [address] Name: Janell Aleta Devante Name: Chikis Richardson Personnel Name: Marli Gaffney MD Address: Address: [address] [place] [address]. [address] Name: Aleta Maciel Name: Chikis Richardson Personnel Name: Marli Gaffney MD Address: Address: [address] [place] [address]. [address] Name: Aleta Maciel Name: Chikis Richardson Personnel Name: Marli Gaffney MD Address: Address: [address] [place] [address]. [address] Name: Sharon Macielissa Devante Name: Chikis Richardson Personnel Name: Marli Gaffney MD Address: Address: [address] [place] [address]. [address] Name: Sharon Macielissa Devante Name: Chikis Richardson Personnel Name: Marli Gaffney MD Address: Address: [address] [place] [address]. [address] Name: Sharon Macielissa Devante Name: Chikis [...] or prosecute any alcohol or drug abuse patient.[facility] Reason for Visit (unrecogniz ed section and [...] BE BASED ON THE PRIMARY CLINICAL RECORDS. [facility] [employer] [facility]. provides no warranty or guarantee of the accuracy or completeness of information in this document.
[2024-07-14 12:08] VITALS: BP 114/89; PULSE 125; TEMP 37; O2SAT 96; BMI 23.6
--- NOTE | 2024-07-14 12:19 | ED_ITS ---
HPI HPI - General Adult General Chief complaint: Urogenital-Male Stated complaint: URINARY & CATH ISSUES, FEVER Time Seen by Provider: 07/14/24 12:01 Source: patient Mode of arrival: walk-in Limitations: no limitations History of Present Illness HPI narrative: 63-year-old male presents to the emergency department to be evaluated for possible infection. He is concerned about his suprapubic catheter. He has had a suprapubic catheter for an extended period of time and this particular catheter was placed 3 days ago. He states his urine is cloudy and he saw some blood in it and he is worried about UTI. He also states he saw some white pus come out from around the insertion site of suprapubic catheter. He states he checked his temperature at home and it was 101 degrees. Related Data Home Medications ?Medication ?Instructions ?Recorded ?Confirmed baclofen 10 mg tablet 10 mg PO BEDTIME 10/15/23 07/14/24 omeprazole 40 mg capsule,delayed 40 mg PO BID 10/15/23 07/14/24 release oxybutynin chloride 5 mg tablet 5 mg PO Q8H 10/15/23 07/14/24 potassium citrate 15 mEq (1,620 15 meq PO BID 10/15/23 07/14/24 mg) tablet,extended release Previous Rx's ?Medication ?Instructions ?Recorded cephalexin 500 mg capsule 500 mg PO TID 7 days #21 caps 07/14/24 Allergies Allergy/AdvReac Type Severity Reaction Status Date / Time No Known Drug Allergies Allergy Verified 02/07/23 18:39 Opioid HPI Opioid Management Most Recent Opioid Data: No Data to Display Review of Systems ROS Narrative A ten point review of systems is negative except as noted above. PFSH PFSH Social History Little interest or pleasure in doing things: not at all Feeling down, depressed, or hopeless: not at all Exam Narrative Exam Narrative: Nurses note and vital signs reviewed and patient is not hypoxic. General: The patient appears well and in no apparent distress. Patient is resting comfortably on cart. Skin: Warm, dry, no pallor noted. There is no rash noted. Head: Normocephalic, atraumatic Eye: Normal conjunctiva, no drainage Ears, Nose, Mouth, and Throat: oral mucosa is moist. Nares patent. Cardiovascular: Regular Rate and Rhythm, tachycardic Respiratory: Patient is in no distress, no accessory muscle use, lungs are clear to auscultation, no wheezing, rales or rhonchi Back: non-tender, no CVA tenderness bilaterally to percussion. GI: Soft and nontender. Insertion site of the suprapubic catheter shows no surrounding erythema and I could not express any pus. Musculoskeletal: The patient has no evidence of calf tenderness, no pitting edema, symmetrical pulses noted bilaterally Neurological: A&O, normal speech Psychiatric: Cooperative Constitutional Vital Signs, click to edit/add: Last Vital Signs Temp 98.6 F 07/14/24 12:08 Pulse 125 H 07/14/24 12:08 Resp 18 07/14/24 12:08 BP 114/89 07/14/24 12:08 Pulse Ox 96 07/14/24 12:08 O2 Del Method Room Air 07/14/24 12:08 Course Vital Signs Vital signs: Vital Signs Temperature 98.6 F 07/14/24 12:08 Pulse Rate 125 H 07/14/24 12:08 Respiratory Rate 18 07/14/24 12:08 Blood Pressure 114/89 07/14/24 12:08 Pulse Oximetry 96 07/14/24 12:08 Oxygen Delivery Method Room Air 07/14/24 12:08 Temperature 98.6 F 07/14/24 12:08 Pulse Rate 125 H 07/14/24 12:08 Respiratory Rate 18 07/14/24 12:08 Blood Pressure 114/89 07/14/24 12:08 Pulse Oximetry 96 07/14/24 12:08 Oxygen Delivery Method Room Air 07/14/24 12:08 Medical Decision Making [facility] Narrative Medical decision making narrative: UTI is identified. His W is only 3.9. Urine culture is being performed and he was given IV Rocephin and discharged home on Keflex. Treatment diagnosis and follow-up were discussed with the patient. I do not clinically suspect sepsis. Differential Diagnosis Differential Diagnosis: UTI, cellulitis Lab Data Lab results reviewed: Yes I reviewed the patient's lab results Labs: Lab Results 07/14/24 Range/Units 12:24 WBC 3.9 L (4.0-11.0) 10^3/uL RBC 5.14 (4.70-6.10) 10^6/uL Hgb 15.7 (14.0-18.0) g/dL Hct 44.4 (42.0-54.0) % MCV 86.4 (80.0-94.0) fL MCH 30.5 (25.9-34.0) pg MCHC 35.4 H (29.9-35.2) g/dL RDW 13.4 (11.0-15.0) % Plt Count 118 L (150-450) 10^3/uL MPV 9.9 (9.5-13.5) fL Seg Neuts % (Manual) 84.0 H (43.0-75.0) Band Neutrophils % 3.0 (0-5) % Lymphocytes % (Manual) 6.0 L (20.5-60.0) % Monocytes % (Manual) 7.0 (1.7-12.0) % Eosinophils % (Manual) 0.0 L (0.9-7.0) % Basophils % (Manual) 0.0 L (0.2-2.0) % Neutrophils # (Manual) 3.27 (1.4-6.5) 10^3/uL Band Neutrophils # 0.1 (0.0-0.3) 10^3/uL Lymphocytes # (Manual) 0.23 L (1.20-3.80) 10^3/uL Monocytes # (Manual) 0.27 L (0.30-0.80) 10^3/uL Eosinophils # (Manual) 0.00 (0.00-0.70) 10^3/uL Basophils # (Manual) 0.00 (0.00-0.10) 10^3/uL Sodium 136 (136-145) mmol/L Potassium 4.0 (3.5-5.1) mmol/L Chloride 98 (98-107) mmol/L Carbon Dioxide 26.9 (21.0-32.0) mmol/L Anion Gap 15.1 BUN 19.0 H (7.0-18.0) mg/dL Creatinine 1.17 (0.70-1.30) mg/dL Est GFR ( Amer) >60 (>=60 mL/min/1.73m^2) Est GFR (Non-Af Amer) >60 (>=60 mL/min/1.73m^2) BUN/Creatinine Ratio 16.2 Glucose 129 H (74-106) mg/dL Calcium 9.2 (8.5-10.1) mg/dL Urine Color Yellow (YELLOW) Urine Clarity Cloudy A (CLEAR) Urine pH 8.5 (5.0-9.0) Ur Specific [place] 1.015 (1.005-1.025) Urine Protein 100 A (NEG/TRACE) mg/dL Urine Glucose (UA) Negative (NEGATIVE) mg/dL Urine Ketones Negative (NEGATIVE) mg/dL Urine Occult Blood Large A (NEGATIVE) Urine Nitrite Negative (NEGATIVE) Urine Bilirubin Negative (NEGATIVE) Urine Urobilinogen 1.0 (0.2-1.0) EU/dL Ur Leukocyte Esterase Large A (NEGATIVE) Urine RBC 20-50 A (0-2) #/HPF Urine WBC 75-100 A (NONE SEEN) #/HPF Ur Squamous Epith Cells Few A (NONE/RARE) #/LPF Ur Transition Epith Cell Rare A (NONE SEEN) #/LPF Urine Crystals Seen A (None Seen) #/HPF Triple Phos Crystals Moderate Amorphous Sediment Many Urine Bacteria Moderate A (NONE SEEN) #/HPF Urine Casts None seen (NONE SEEN) #/LPF Urine Mucus None seen (NONE SEEN) [place] [place] Chief Complaint: Urogenital-Male Clinical Impression: Urinary tract infection Patient Disposition: Home, Self-Care Time of Disposition Decision: 14:04 Condition: Good Mode of Transportation: Private Vehicle Prescriptions / Home Meds: New cephalexin 500 mg capsule 500 mg PO TID 7 Days Qty: 21 0RF No Action omeprazole 40 mg capsule,delayed release(DR/EC) 40 mg PO BID baclofen 10 mg tablet 10 mg PO BEDTIME oxybutynin chloride 5 mg tablet 5 mg PO Q8H potassium citrate 15 mEq tablet extended release 15 meq PO BID Print Language: [place] Instructions: Urinary Tract Infection in Men (ED) Referrals: LISBETH VALDOVINOS [Primary Care Provider] - 1 week
[2024-07-14 12:52] LABS: Hematocrit 44.4 % (42.0-54.0); Hemoglobin 15.7 g/dL (14.0-18.0); Mean Corpuscular HGB Conc 35.4 g/dL (29.9-35.2); Mean Corpuscular Hemoglobin 30.5 pg (25.9-34.0); Mean Corpuscular Volume 86.4 fL (80.0-94.0); Mean Platelet Volume 9.9 fL (9.5-13.5); Platelet Count 118 10^3/uL (150-450); Red Blood Count 5.14 10^6/uL (4.70-6.10); Red Cell Distribution Width 13.4 % (11.0-15.0); White Blood Count 3.9 10^3/uL (4.0-11.0)
[2024-07-14 12:53] LABS: Bilirubin Urine NEGATIVE (NEGATIVE); Blood Urine LARGE (NEGATIVE); Clarity Urine CLOUDY (CLEAR); Color Urine YELLOW (YELLOW); Glucose Urine UA NEGATIVE (NEGATIVE); Ketones Urine NEGATIVE (NEGATIVE); Leukocyte Esterase Urine LARGE (NEGATIVE); Nitrite Urine NEGATIVE (NEGATIVE); Protein Urine 100 mg/dL (NEG/TRACE); Specific Gravity Urine 1.015 (1.005-1.025); pH Urine 8.5 (5.0-9.0)
[2024-07-14 13:01] LABS: Anion Gap 15.1; BUN Creatinine Ratio 16.2; Bacteria Urine MODERATE #/HPF (NONE SEEN); Calcium 9.2 mg/dL (8.5-10.1); Carbon Dioxide 26.9 mmol/L (21.0-32.0); Chloride 98 mmol/L (98-107); Estimated GFR (African America >60 (>=60 mL/min/1.73m^2); Estimated GFR (Non-African Ame >60 (>=60 mL/min/1.73m^2); Glucose 129 mg/dL (74-106); Mucus Urine NONE SEEN (NONE SEEN); RBC Urine 20-50 #/HPF (0-2); Sodium 136 mmol/L (136-145); Squamous Epithelial Cell Urine FEW #/LPF (NONE/RARE); WBC Urine 75-100 #/HPF (NONE SEEN)
[2024-07-14 13:02] LABS: Amorphous Sediment Urine MANY; Cast Seen? NONE SEEN #/LPF (NONE SEEN); Crystals Seen? Seen #/HPF (None Seen); Transitional Epi Cells Urine RARE #/LPF (NONE SEEN); Triple Phosphate Crystal Urine MODERATE; Urine Culture Indicated YES-FRMC
[2024-07-14 13:18] LABS: Band Neutrophils Absolute 0.1 10^3/uL (0.0-0.3); Segmented Neut Absolute Manual 3.27 10^3/uL (1.4-6.5)
[2024-07-14 13:19] LABS: Lymphocytes Absolute Manual 0.23 10^3/uL (1.20-3.80); Monocytes Absolute Manual 0.27 10^3/uL (0.30-0.80)
[2024-07-14] MEDS: CEFTRIAXONE 1,000 MG in 0.9 % SODIUM CHLORIDE 50 ML 100 MG IV (13:38)
[2024-07-14 14:13] VITALS: BP 111/71; PULSE 93; O2SAT 99
--- NOTE | 2024-07-18 13:34 | PC.NURSE ---
Culture completed and reviewed by Elizabeth JORGENSEN. Treatment Sufficient no change in treatment.
== END 2024-07-14 14:13 | disposition home or self-care (01) ==
PROVIDERS: Emergency Provider Emergency Medicine; Family Provider Family Medicine; PCP Family Medicine
DX: N39.0 Urinary tract infection, site not specified (principal); Z93.50 Unspecified cystostomy status
CPT/HCPCS: 36415; 80048; 81001; 85007; 85027; 87086; 87150; 87186; 96365; 99284; J0696

== ENCOUNTER 2024-09-29 07:13 | Outpatient (OUT) | payer MEDICARE, SELFPAY ==
[2024-09-29 07:49] LABS: Basophils Absolute Auto 0.1 10^3/uL (0.0-0.1); Basophils Percent Auto 0.6 % (0.2-2.0); Eosinophils Absolute Auto 0.2 10^3/uL (0.0-0.7); Eosinophils Percent Auto 2.4 % (0.9-7.0); Hemoglobin 16.1 g/dL (14.0-18.0); Immature Granulocytes Abs Auto 0.01 10^3/uL (0.00-0.03); Immature Granulocytes Pct Auto 0.1 % (0.0-0.5); Lymphocytes Absolute Auto 1.7 10^3/uL (1.2-3.8); Lymphocytes Percent Auto 20.6 % (20.5-60.0); Mean Corpuscular Hemoglobin 30.4 pg (25.9-34.0); Mean Platelet Volume 9.6 fL (9.5-13.5); Monocytes Absolute Auto 0.6 10^3/uL (0.3-0.8); Monocytes Percent Auto 7.5 % (1.7-12.0); Neutrophils Absolute Auto 5.6 10^3/uL (1.4-6.5); Neutrophils Percent Auto 68.8 % (43.0-75.0); Platelet Count 226 10^3/uL (150-450); Red Blood Count 5.29 10^6/uL (4.70-6.10); Red Cell Distribution Width 13.8 % (11.0-15.0); White Blood Count 8.2 10^3/uL (4.0-11.0)
[2024-09-29 08:09] LABS: Anion Gap 11.4; BUN Creatinine Ratio 13.5; Calcium 9.4 mg/dL (8.5-10.1); Carbon Dioxide 31.3 mmol/L (21.0-32.0); Chloride 102 mmol/L (98-107); Chol HDL Ratio 3.7; Cholesterol 161 mg/dL (<=200); Estimated GFR (African America >60 (>=60 mL/min/1.73m^2); Estimated GFR (Non-African Ame >60 (>=60 mL/min/1.73m^2); Glucose 108 mg/dL (74-106); HDL Cholesterol 43 mg/dL (40-60); LDL Cholesterol Calculated 95.4 mg/dL; Potassium 4.7 mmol/L (3.5-5.1); Sodium 140 mmol/L (136-145); Triglycerides 113 mg/dL (<=150); VLDL CHOLESTEROL 22.6 mg/dL
== END 2024-09-29 07:14 | disposition home or self-care (01) ==
PROVIDERS: Family Provider Family Medicine; PCP Family Medicine; Visit Provider Family Medicine
DX: I10 Essential (primary) hypertension (principal)
CPT/HCPCS: 36415; 80048; 80061; 85025